=== PATIENT | male | born 1955 | race American Indian/Alaskan Native ===

== ENCOUNTER 2017-04-24 17:41 | Inpatient (IN) | payer MEDICARE ==
[2017-04-24 17:41] VITALS: BMI 23.7
[2017-04-24] MEDS ORDERED: Albuterol-Ipratrop 3 mg / 0.5 (3 ml) UD IH STA (18:14)
[2017-04-24] MEDS ORDERED: Albuterol 0.083% Inhal Sol (2.5 mg/3 mL) UD IH STA (18:14)
[2017-04-24 18:24] LABS: BASO % 0.3 % (0.0-2.0); EOS # 0.1 K/uL (0.0-0.7); EOS % 0.8 % (0.0-4.0); HEMATOCRIT 41.7 % (35.0-51.0); LYMPH # 1.8 K/uL (1.0-4.3); LYMPH % 20.3 % (20.0-40.0); MEAN CORPUSCULAR HEMOGLOBIN 31.5 pg (27.0-31.0); MEAN CORPUSCULAR HGB CONC 33.8 g/dL (33.0-37.0); MEAN PLATELET VOLUME 9.2 fL (7.2-11.7); MONO # 0.6 K/uL (0.0-0.8); MONO % 7.3 % (0.0-10.0); RED CELL DISTRIBUTION WIDTH 14.2 % (11.5-14.5); WHITE BLOOD COUNT 8.6 K/uL (4.8-10.8)
[2017-04-24] MEDS ORDERED: Albuterol-Ipratrop 3 mg / 0.5 (3 ml) UD ONE (18:25)
[2017-04-24 18:26] LABS: MEAN CELL VOLUME 93.3 fL (80.0-94.0)
[2017-04-24] MEDS ORDERED: Albuterol 0.083% Inhal Sol (2.5 mg/3 mL) UD ONE (18:29)
[2017-04-24 18:36] LABS: CHLORIDE 108 mmol/L (98-107); POTASSIUM 4.1 mmol/L (3.6-5.2); SODIUM 140 mmol/L (132-148)
[2017-04-24 18:38] LABS: BILIRUBIN,TOTAL 0.7 mg/dL (0.2-1.3); GFR AFRICAN-AMERICAN > 60
[2017-04-24 18:39] LABS: ALB/GLOB RATIO 1.2 (1.0-2.1); ALKALINE PHOSPHATASE 68 U/L (38-126); ALT/SGPT 26 U/L (21-72); AST/SGOT 32 U/L (17-59); BLOOD UREA NITROGEN 10 mg/dL (9-20); CARBON DIOXIDE 22 mmol/L (22-30); GLUCOSE,RANDOM 105 mg/dL (75-110); TOTAL PROTEIN 6.4 g/dL (6.3-8.3)
[2017-04-24 18:40] LABS: CALCIUM 8.9 mg/dl (8.6-10.4)
--- NOTE | 2017-04-24 19:46 | C.PDOC ---
History Of Present Illness 61 y/o male with Hx of COPD presents to ED with worsening sob, productive cough with white phlegm and unable to lie down since yesterday. 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 Patient has inhaler and albuterol at home that he does not use regularly but used it last night and states he woke up today with symptoms worse which prompted visit to ED. Patient denies fever, chills, chest pain, n/v/d or any other complaints at this time. Time Seen by Provider: 04/24/17 18:09 Chief Complaint (Nursing): Shortness Of Breath History Per: Patient History/Exam Limitations: no limitations Onset/Duration Of Symptoms: Days Current Symptoms Are (Timing): Still Present Initiating Event: Upper Respiratory Illness Past Medical History Reviewed: Historical Data, Nursing Documentation, Vital Signs Vital Signs: Last Vital Signs Temp 97.6 F 04/24/17 17:45 Pulse 87 04/24/17 19:55 Resp 27 H 04/24/17 19:55 BP 139/89 04/24/17 19:55 Pulse Ox 93 L 04/24/17 19:55 - Medical History PMH: Anxiety, CHF, COPD, Pneumonia Family History: States: Unknown Family Hx - Social History Hx Alcohol Use: Yes (renae 1 pint/day) Hx Substance Use: Yes (marijuana daily) - Immunization History Hx Tetanus Toxoid Vaccination: No Hx Influenza Vaccination: No Hx Pneumococcal Vaccination: No Review Of Systems Except As Marked, All Systems Reviewed And Found Negative. Constitutional: Negative for: Fever, Chills Cardiovascular: Negative for: Chest Pain Respiratory: Positive for: Cough, Shortness of Breath Gastrointestinal: Negative for: Nausea, Vomiting, Diarrhea Skin: Negative for: Rash Physical Exam - Physical Exam Appears: Non-toxic, No Acute Distress Skin: Normal Color, Warm, No Rash Head: Atraumatic, Normacephalic Eye(s): bilateral: Normal Inspection Oral Mucosa: Moist Chest: Symmetrical Cardiovascular: Rhythm Regular Respiratory: Rales (Basilar), No Rhonchi, No Wheezing, Other (winded) Gastrointestinal/Abdominal: Soft, No Tenderness, No Guarding, No Rebound Neurological/Psych: Oriented x3, Normal Speech ED Course And Treatment - Laboratory Results Result Diagrams: 04/24/17 18:20 04/24/17 18:20 Lab Interpretation: Abnormal (BNP 8680) ECG: Interpreted By Me ECG Rhythm: Sinus Rhythm (with LVH), ST/T Changes (nonspecific) ECG Interpretation: Abnormal O2 Sat by Pulse Oximetry: 97 (RA) Pulse Ox Interpretation: Normal - Radiology CXR: Interpreted by Me CXR Interpretation: Yes: Cardiomegaly, Other (diffuse interstitial changes, small right pleural effusion) Reevaluation Time: 20:01 Reassessment Condition: Unchanged (Patient continues to be short of breath, worse on exertion with ambulating. Pulse ox decreased to 93%) - Physician Consult Information Time Consulting Physician Contacted: 20:01 Physician Contacted: Octavio Soriano Jr. Outcome Of Conversation: Patient to be admitted to telemetry for CHF with chronic COPD Disposition - Disposition Disposition: HOSPITALIZED Disposition Time: 20:02 Condition: FAIR - POA Present On Arrival: None - Clinical Impression Clinical Impression: COPD (chronic obstructive pulmonary disease), CHF (congestive heart failure) - Scribe Statement The provider has reviewed the documentation as recorded by the Scribanthony Perez All medical record entries made by the Scribe were at my direction and personally dictated by me. I have reviewed the chart and agree that the record accurately reflects my personal performance of the history, physical exam, medical decision making, and the department course for this patient. I have also personally directed, reviewed, and agree with the discharge instructions and disposition.
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
[2017-04-24] MEDS ORDERED: Digoxin 125 mcg (0.125 mg) Tab PO STA (21:26)
[2017-04-24] MEDS ORDERED: Digoxin 125 mcg (0.125 mg) Tab ONE (21:39)
[2017-04-24 22:33] VITALS: RESP 20
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
--- NOTE | 2017-04-25 08:18 | RAD ---
HISTORY: SOB COMPARISON: 11/07/2016 TECHNIQUE: Chest PA and lateral FINDINGS: LUNGS: There is interval development of diffuse pulmonary venous congestion and interstitial pulmonary edema. PLEURA: There are small pleural effusions. No pneumothorax apparent. CARDIOVASCULAR: There is mild cardiomegaly and prominent central vasculature. OSSEOUS STRUCTURES: No significant abnormalities. VISUALIZED UPPER ABDOMEN: Normal. OTHER FINDINGS: None. IMPRESSION: Findings are most compatible with congestive heart failure.
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
--- NOTE | 2017-04-25 16:36 | CP.PCM.PN ---
<Christine Childs - Last Filed: 04/25/17 17:36> Subjective - Date & Time of Evaluation Date of Evaluation: 04/25/17 Time of Evaluation: 07:00 - Subjective Subjective: Medicine Note for Dr. Soriano Patient seen and examined at bedside. Patient reports his breathing has much improved. Denied fever, chills, headaches, chest pain, abdominal pain, n/v/d/c, or urinary symptoms. Objective - Vital Signs/Intake and Output Vital Signs (last 24 hours): Temp Pulse Resp BP Pulse Ox 97.7 F 68 20 117/76 97 04/25/17 16:00 04/25/17 16:00 04/25/17 16:00 04/25/17 16:00 04/25/17 16:00 Intake and Output: 04/25/17 04/25/17 06:59 18:59 Intake Total 240 400 Output Total 1600 Balance -1360 400 - Medications Medications: Current Medications Aspirin (Aspirin Chewable) 81 mg PO DAILY [facility] Last Admin: 04/25/17 09:35 Dose: 81 mg Digoxin (Lanoxin) 0.125 mg PO DAILY@1800 [facility] Enalapril Maleate (Vasotec) 10 mg PO DAILY [facility] Last Admin: 04/25/17 09:35 Dose: 10 mg Famotidine (Pepcid) 20 mg PO DAILY [facility] Last Admin: 04/25/17 09:35 Dose: 20 mg Furosemide (Lasix) 60 mg IVP Q12H [facility] Last Admin: 04/25/17 09:30 Dose: 60 mg Heparin Sodium (Porcine) (Heparin) 5,000 units SC Q8 [facility] Last Admin: 04/25/17 14:34 Dose: 5,000 units Pneumococcal Polyvalent Vaccine (Pneumovax 23 Vaccine) 0.5 ml IM .ONCE ONE Stop: 04/26/17 10:01 Rosuvastatin Calcium (Crestor) 5 mg PO HS [facility] Last Admin: 04/24/17 22:07 Dose: 5 mg Spironolactone (Aldactone) 25 mg PO DAILY [facility] Last Admin: 04/25/17 09:35 Dose: 25 mg - Constitutional Appears: No Acute Distress - Head Exam Head Exam: NORMAL INSPECTION, NORMOCEPHALIC - Eye Exam Eye Exam: EOMI, Normal appearance, PERRL Pupil Exam: NORMAL ACCOMODATION Additional comments: right eye clouded over s/p old trauma - ENT Exam ENT Exam: Mucous Membranes Moist - Respiratory Exam Respiratory Exam: Rales - Cardiovascular Exam Cardiovascular Exam: REGULAR RHYTHM, RRR, +S1, +S2 - GI/Abdominal Exam GI & Abdominal Exam: Soft, Normal Bowel Sounds. absent: Distended, Tenderness - Extremities Exam Extremities Exam: Normal Inspection. absent: Pedal Edema, Tenderness - Neurological Exam Neurological Exam: Alert, Awake, Oriented x3 - Psychiatric Exam Psychiatric exam: Normal Affect, Normal Mood - Skin Skin Exam: Dry, Intact, Normal Color, Warm Assessment and Plan - Assessment and Plan (Free Text) Plan: CHF * BNP 8680, was 3930 on past admission 11/2016 * CXR with bilateral venous congestion- official report pending * patient had MUGA scan in 11/2016 with EF 25%. patient was given life vest but has not been wearing it recently. patient not compliant with lisinopril or lasix * EKG with left atrial enlargement * GLENN x 3 negative * Started patient on lasix 60mg IV BID day 1/2 will adjust dose for 04/27/17, Started on ASA 81 mg PO daily, digoxin 0.125mg PO daily, enalapril 10 mg PO daily, rosuvastatin 5 mg PO hs, and spirinolatone 25 mg PO daily. * Check daily weights, monitor Is & Os, fluid restriction * Dr. Heck consulted, help appreciated * Echo 08/2016 shows EF 56%, dilated left atrium and dilated aortic root. mild mitral regurg, mild to moderate aortic regurg, moderate tricuspid regurg0 * MUGA scan shows EF 25%; given life vest but noncompliant. Appropriate regimen, please continue with these meds. Please avoid beta pili because pt is a cocaine abuser. * F/U ECHO HTN * Start vasotec 10mg PO daily Hx of Cocaine Abuse * Avoid beta pili Prophylactic measure * heparin sc q8h * pepcid 20mg daily DW Naz Ramon DO, PGY-1 <Octavio Soriano Jr. - Last Filed: 04/30/17 10:40> Objective - Vital Signs/Intake and Output Vital Signs (last 24 hours): Temp Pulse Resp BP Pulse Ox 97.6 F 68 20 100/61 100 04/26/17 16:00 04/26/17 16:00 04/26/17 16:00 04/26/17 16:00 04/26/17 16:00 - Labs Labs: 04/26/17 06:57 04/26/17 06:57 Attending/Attestation - Attestation I have personally seen and examined this patient.: Yes I have fully participated in the care of the patient.: Yes I have reviewed all pertinent clinical information, including history, physical exam and plan: Yes Notes (Text): 04/30/17 10:40 Agree with resident note and findings
[2017-04-25] MEDS: Digoxin 125 mcg (0.125 mg) Tab PO SCH (18:11)
[2017-04-25] MEDS ORDERED: Promethazine 12.5 mg/10 ml Syrup PO PRN (18:38)
[2017-04-26 07:11] LABS: BASO % 0.5 % (0.0-2.0); EOS # 0.1 K/uL (0.0-0.7); EOS % 1.1 % (0.0-4.0); HEMATOCRIT 47.4 % (35.0-51.0); LYMPH # 1.8 K/uL (1.0-4.3); LYMPH % 19.2 % (20.0-40.0); MEAN CELL VOLUME 93.3 fL (80.0-94.0); MEAN CORPUSCULAR HEMOGLOBIN 30.7 pg (27.0-31.0); MEAN CORPUSCULAR HGB CONC 32.9 g/dL (33.0-37.0); MEAN PLATELET VOLUME 9.7 fL (7.2-11.7); MONO # 0.8 K/uL (0.0-0.8); MONO % 8.4 % (0.0-10.0); WHITE BLOOD COUNT 9.2 K/uL (4.8-10.8)
[2017-04-26 07:22] LABS: CHLORIDE 100 mmol/L (98-107); POTASSIUM 3.7 mmol/L (3.6-5.2); SODIUM 135 mmol/L (132-148)
[2017-04-26 07:24] LABS: AST/SGOT 25 U/L (17-59); BILIRUBIN,TOTAL 0.7 mg/dL (0.2-1.3); CARBON DIOXIDE 25 mmol/L (22-30); GFR AFRICAN-AMERICAN > 60
[2017-04-26 07:25] LABS: ALB/GLOB RATIO 1.2 (1.0-2.1); ALKALINE PHOSPHATASE 76 U/L (38-126); ALT/SGPT 27 U/L (21-72); BLOOD UREA NITROGEN 17 mg/dL (9-20); CALCIUM 9.2 mg/dl (8.6-10.4); GLUCOSE,RANDOM 95 mg/dL (75-110); PHOSPHOROUS 4.4 mg/dL (2.5-4.5); TOTAL PROTEIN 6.9 g/dL (6.3-8.3)
[2017-04-26 07:26] LABS: MAGNESIUM 1.7 mg/dL (1.6-2.3)
--- NOTE | 2017-04-26 08:11 | CP.PCM.PN ---
Subjective - Date & Time of Evaluation Date of Evaluation: 04/26/17 Time of Evaluation: 08:09 - Subjective Subjective: La Deng, PGY1, Progress Note for Dr. Heck: Pt seen and examined at bedside. No acute events overnight. Pt reports improvement in sob. Denies cp, diaphoresis, n/v/d, f/c, palpitations, abdominal pain. Objective - Vital Signs/Intake and Output Vital Signs (last 24 hours): Temp Pulse Resp BP Pulse Ox 98.3 F 73 20 121/79 97 04/25/17 23:40 04/26/17 00:15 04/25/17 23:40 04/25/17 23:40 04/25/17 23:40 Intake and Output: 04/26/17 04/26/17 06:59 18:59 Intake Total 500 Balance 500 - Medications Medications: Current Medications Aspirin (Aspirin Chewable) 81 mg PO DAILY [facility] Last Admin: 04/25/17 09:35 Dose: 81 mg Digoxin (Lanoxin) 0.125 mg PO DAILY@1800 [facility] Last Admin: 04/25/17 18:11 Dose: 0.125 mg Enalapril Maleate (Vasotec) 10 mg PO DAILY [facility] Last Admin: 04/25/17 09:35 Dose: 10 mg Famotidine (Pepcid) 20 mg PO DAILY [facility] Last Admin: 04/25/17 09:35 Dose: 20 mg Furosemide (Lasix) 60 mg IVP Q12H [facility] Last Admin: 04/25/17 20:35 Dose: 60 mg Heparin Sodium (Porcine) (Heparin) 5,000 units SC Q8 [facility] Last Admin: 04/26/17 06:18 Dose: 5,000 units Pneumococcal Polyvalent Vaccine (Pneumovax 23 Vaccine) 0.5 ml IM .ONCE ONE Stop: 04/26/17 10:01 Promethazine HCl (Phenergan Syrup) 12.5 mg PO Q6 PRN PRN Reason: Cough Last Admin: 04/25/17 19:00 Dose: 12.5 mg Rosuvastatin Calcium (Crestor) 5 mg PO HS [facility] Last Admin: 04/25/17 22:14 Dose: 5 mg Spironolactone (Aldactone) 25 mg PO DAILY [facility] Last Admin: 04/25/17 09:35 Dose: 25 mg - Labs Labs: 04/26/17 06:57 08/18/17 06:57 - Constitutional Appears: No Acute Distress - Head Exam Head Exam: ATRAUMATIC, NORMOCEPHALIC - Eye Exam Eye Exam: PERRL - Respiratory Exam Respiratory Exam: Clear to Ausculation Bilateral - Cardiovascular Exam Cardiovascular Exam: REGULAR RHYTHM, +S1, +S2 - GI/Abdominal Exam GI & Abdominal Exam: Soft, Normal Bowel Sounds. absent: Tenderness - Extremities Exam Extremities Exam: absent: Calf Tenderness, Pedal Edema - Neurological Exam Neurological Exam: Alert, Awake, Oriented x3 - Psychiatric Exam Psychiatric exam: Normal Mood - Skin Skin Exam: Dry, Warm Assessment and Plan - Assessment and Plan (Free Text) Assessment: 61M with CHF, COPD, HTN, OA, admitted for dyspnea 2/2 likely acute on chronic CHF exacerbation 2/2 likely noncompliance with his medications. Cardiology consulted for management of CHF. Plan: Dyspnea 2/2 likely acute on chronic CHF exacerbation vs copd exacerbation (less likely): - Pt noncompliant with his home heart failure meds. - BNP 8680, trops negx2, denies cp, diaphoresis, n/v/d, abdominal pain - CXR 04/24 shows b/l venous congestion - EKG 04/24 shows HR 94, NSR, LVh and L atrial enlargement, QTC mildly prolonged 475 ms - Echo 08/2016 shows EF 56%, dilated left atrium and dilated aortic root. mild mitral regurg, mild to moderate aortic regurg, moderate tricuspid regurg0 - MUGA scan shows EF 25%; given life vest but noncompliant - In ED, received digoxin 0.125 mg POx1 and lasix 60 mg IVPx1 - Started on ASA 81 mg PO daily, digoxin 0.125mg PO daily, enalapril 10 mg PO daily, lasix 60 mg IVP q12h x 2 days, rosuvastatin 5 mg PO hs, and spirinolatone 25 mg PO daily. Appropriate regimen, please continue with these meds. Please avoid beta pili because pt is a cocaine abuser. - C/w duonebs prn. - Echocardiogram done yesterday, results pending. Discussed with Dr. Heck. La Deng, PGY1
[2017-04-26] MEDS ORDERED: Pneumococcal 23-Valent Vaccine IM ONE (10:00)
[2017-04-26 17:18] VITALS: BP 100/61; PULSE 68; TEMP 97.6; O2SAT 100
[2017-04-26] MEDS: Digoxin 125 mcg (0.125 mg) Tab PO SCH (18:22)
[2017-04-26 18:23] VITALS: PULSE 68
--- NOTE | 2017-04-26 18:38 | CP.PCM.DIS ---
Provider - Provider Date of Admission: 04/25/17 16:35 Attending physician: Octavio Soriano Jr, MD Time Spent in preparation of Discharge (in minutes): 32 Diagnosis - Discharge Diagnosis (1) Acute on chronic systolic (congestive) heart failure Status: Acute (2) HTN (hypertension) Status: Chronic (3) Prophylactic measure Status: Acute (4) Cocaine abuse Status: Acute Comment: For this reason, we avoided using beta blockers Hospital Course - Lab Results Lab Results: Most Recent Lab Values WBC 9.2 K/uL (4.8-10.8) 04/26/17 06:57 RBC 5.07 Mil/uL (4.40-5.90) 04/26/17 06:57 Hgb 15.6 g/dL (12.0-18.0) 04/26/17 06:57 Hct 47.4 % (35.0-51.0) 04/26/17 06:57 MCV 93.3 fL (80.0-94.0) 04/26/17 06:57 MCH 30.7 pg (27.0-31.0) 04/26/17 06:57 MCHC 32.9 g/dL (33.0-37.0) L 04/26/17 06:57 RDW 14.0 % (11.5-14.5) 04/26/17 06:57 Plt Count 244 K/uL (130-400) 04/26/17 06:57 MPV 9.7 fL (7.2-11.7) 04/26/17 06:57 Neut % (Auto) 70.8 % (50.0-75.0) 04/26/17 06:57 Lymph % (Auto) 19.2 % (20.0-40.0) L 04/26/17 06:57 [place] % (Auto) 8.4 % (0.0-10.0) 04/26/17 06:57 Eos % (Auto) 1.1 % (0.0-4.0) 04/26/17 06:57 Baso % (Auto) 0.5 % (0.0-2.0) 04/26/17 06:57 Neut # 6.5 K/uL (1.8-7.0) 04/26/17 06:57 Lymph # 1.8 K/uL (1.0-4.3) 04/26/17 06:57 [place] # 0.8 K/uL (0.0-0.8) 04/26/17 06:57 Eos # 0.1 K/uL (0.0-0.7) 04/26/17 06:57 Baso # 0.0 K/uL (0.0-0.2) 04/26/17 06:57 Sodium 135 mmol/L (132-148) 04/26/17 06:57 Potassium 3.7 mmol/L (3.6-5.2) 04/26/17 06:57 Chloride 100 mmol/L (98-107) 04/26/17 06:57 Carbon Dioxide 25 mmol/L (22-30) 04/26/17 06:57 Anion Gap 14 (10-20) 04/26/17 06:57 BUN 17 mg/dL (9-20) 04/26/17 06:57 Creatinine 1.2 MG/DL (0.8-1.5) 04/26/17 06:57 Est GFR ( Amer) > 60 04/26/17 06:57 Est GFR (Non-Af Amer) > 60 04/26/17 06:57 Random Glucose 95 mg/dL (75-110) 04/26/17 06:57 Calcium 9.2 mg/dl (8.6-10.4) 04/26/17 06:57 Phosphorus 4.4 mg/dL (2.5-4.5) 04/26/17 06:57 Magnesium 1.7 mg/dL (1.6-2.3) 04/26/17 06:57 Total Bilirubin 0.7 mg/dL (0.2-1.3) 04/26/17 06:57 AST 25 U/L (17-59) 04/26/17 06:57 ALT 27 U/L (21-72) 04/26/17 06:57 Alkaline Phosphatase 76 U/L (38-126) 04/26/17 06:57 Total Creatine Kinase 109 U/L (55-170) 04/25/17 08:03 CK-MB (Mass) 1.14 ng/mL (0.0-3.38) 04/25/17 08:03 Troponin I 0.0590 ng/mL (0.00-0.120) 04/24/17 18:20 Troponin I, Quant 0.0620 ng/mL (0.00-0.120) 04/25/17 08:03 NT-Pro-B Natriuret Pep 8680 pg/mL (0-900) H 04/24/17 18:20 Total Protein 6.9 g/dL (6.3-8.3) 04/26/17 06:57 Albumin 3.7 g/dL (3.5-5.0) 04/26/17 06:57 Globulin 3.1 gm/dL (2.2-3.9) 04/26/17 06:57 Albumin/Globulin Ratio 1.2 (1.0-2.1) 04/26/17 06:57 - Hospital Course Hospital Course: On admission: "Patient is a 61 year old male with PMHx HTN, osteoarthritis, heart failure, who presents with complaint of shortness of breath. Patient states the dyspnea has been going on for the past two- three days. Patient states that two nights ago he woke up from sleep feeling like he couldn't catch his breath. Patient states he normally sleeps on two pillows but for the past two nights he has needed four pillows. Patient states that he is having his bathroom renovated at home and there has been a lot of dust in the air for the past week and he initially attributed his dyspnea to that. Patient states he normally rides his bike and walks 3-4 blocks before needing a rest but for the past week can only walk one block. Patient was last admitted here in November for similar complaint. At that time, patient had a MUGA scan that showed EF of 25% and was transferred to [facility] for AICD placement. Patient did not receive AICD but instead received a life vest. Patient states he wore the vest for a couple of months but has not used it for the past 2-3 months. Patient also states he stopped taking lisinopril because he had ankle swelling and attributed it to the lisinopril. Patient states he uses albuterol and advair from [id number] but recently used advair 3 times daily and albuterol every 3 hours without much relief." Hospital Course: Patient admitted for acute on chronic systolic congestive heart failure. BNP was 8680 on this admission, as compared to 3930 on past admission 11/2016. Dr. Heck (cardiology) consulted. CXR showed bilateral venous congestion. EKG showed NSR with evidence of LVH and Left atrial enlargement, QTc prolonged 475 ms. Troponins unremarkable. Patient was started on lasix 60 mg IV BID, ASA 81 mg PO daily, Enalapril 20 mg PO daily, Rosuvastatin 5 mg PO HS, aldactone 25 mg PO daily, and Digoxin 0.125 mg PO daily. Beta jocelyn was avoided due to the patient's history of cocaine abuse. Echo was done and preliminary reading by Dr. Soriano showed an EF of 35% with moderate aortic insufficiency indicating that this is likely attributable to Hypertensive Heart Disease. Patient was instructed to follow up with primary care physician and wireworker supervisor for management of his chronic medical problems. This is a summary of the hospital course. Please refer to the medical records for more information. - Date & Time of H&P Date of H&P: 04/26/17 Time of H&P: 19:00 Discharge Exam - Head Exam Head Exam: ATRAUMATIC, NORMAL INSPECTION, NORMOCEPHALIC - Eye Exam Eye Exam: EOMI, PERRL Additional comments: right eye clouded over s/p old trauma - ENT Exam ENT Exam: Mucous Membranes Moist - Respiratory Exam Respiratory Exam: Clear to PA & Lateral, NORMAL BREATHING PATTERN. absent: Rales, Rhonchi, Wheezes - Cardiovascular Exam Cardiovascular Exam: REGULAR RHYTHM, +S1, +S2 - GI/Abdominal Exam GI & Abdominal Exam: Normal Bowel Sounds, Soft. absent: Tenderness - Extremities Exam Extremities exam: pedal pulses present - Neurological Exam Neurological exam: Alert, Oriented x3 - Psychiatric Exam Psychiatric exam: Normal Affect, Normal Mood - Skin Skin Exam: Dry, Intact, Normal Color, Warm Discharge Plan - Discharge Medications Prescriptions: Digoxin [Lanoxin] 0.125 mg PO DAILY@1800 #30 tab Enalapril Maleate [Vasotec] 20 mg PO DAILY #30 tab Furosemide [Lasix] 40 mg PO BID #60 tab Potassium Chloride [K-Dur 20] 20 meq PO DAILY #30 tab Rosuvastatin Calcium [Crestor] 5 mg PO HS #30 tab Spironolactone [Aldactone] 25 mg PO DAILY #30 tab - Follow Up Plan Condition: STABLE Disposition: HOME/ ROUTINE Instructions: Spironolactone (By mouth), Enalapril (By mouth), Digoxin (By mouth), Furosemide (By mouth), Potassium Chloride (By mouth), Rosuvastatin (By mouth), Heart Failure (DC), Heart Healthy Diet (DC), COPD (Chronic Obstructive Pulmonary Disease) (DC) Additional Instructions: 1) Continue your home medications except for the Lisinopril which was replaced. 2) Take Enalapril 20 mg by mouth once a day. 3) Take Digoxin 0.125 mg by mouth once a day. 4) Take Furosemide (the water pill) 40 mg by mouth twice a day. It is a good idea to take one in the morning and one at noon in order to prevent night-time interruptions from sleep. 5) Take Spironolactone 25 mg by mouth once a day. 6) Take Potassium Chloride 20 mEq tab once a day. 7) Take Rosuvastatin 5 mg by mouth once a day at bedtime. 8) Follow up with your primary care physician Dr. Velázquez in his office within 7- 10 days of discharge. Please continue taking your medications. Failure to take them could result in disastrous consequences that could be life-threatening. You will also need to follow up with a wireworker supervisor in 7-10 days to manage your congestive heart failure. 9) If there are any emergency symptoms such as chest pain or shortness of breath , please return to the emergency room. Referrals: Mia Heck MD [Staff Provider] - Jose Velázquez MD [Staff Provider] - Octavio Soriano Jr., MD [Medical Doctor] - Clinical Quality Measures - CQM - Heart Failure Ejection Fraction: Less Than 40 % THOMAS Inhibitor Prescribed: Yes Beta-Jocelyn Prescribed: None Contraindication/Reason for not providing: History of Cocaine Abuse Angiotensin II Receptor Jocelyn Prescribed: No Contraindication/Reason for not providing: Given THOMAS inhibitor AnticoagulationTherapy for Atrial Fibrillation/Atrialflutter: No Contraindication/Reason for not providing: no history of Afib Aldosterone Antagonist Prescribed: Yes Hydralazine Nitrate Prescribed: No Contraindication/Reason for not providing: unnecessary Implantable Cardioverter Defibrillator Therapy: No Contraindication/Reason for not providing: patient had life vest instead Cardiac Resynchronization Therapy Prescribed: No Contraindication/Reason for not providing: unnecessary
--- NOTE | 2017-04-27 18:07 | CARD ---
APPROVED REPORT EKG Measurement Heart [id number] <Conclusion> Poor data quality, interpretation may be adversely affected Normal sinus rhythm Possible Left atrial enlargement Left ventricular hypertrophy Nonspecific T wave abnormality Prolonged QT Abnormal ECG
--- NOTE | 2017-04-27 20:30 | CARD ---
APPROVED REPORT EXAM: Two-dimensional and M-mode echocardiogram with Doppler and color Doppler. Other Information Quality : GoodRhythm : PVC's INDICATION Pericardial Effusion Congestive Heart Failure COPD RISK FACTORS Hypertension 2D DIMENSIONS IVSd1.3 (0.7-1.1cm)LVDd5.8 (3.9-5.9cm) PWd1.4 (0.7-1.1cm)LVDs5.0 (2.5-4.0cm) FS (%) 14.4 %LVEF (%)30.1 (>50%) M-Mode DIMENSIONS Left Atrium (MM)3.99 (2.5-4.0cm)IVSd0.88 (0.7-1.1cm) Aortic Root4.96 (2.2-3.7cm)LVDd6.63 (4.0-5.6cm) Aortic Cusp Exc.1.77 (1.5-2.0cm)PWd1.11 (0.7-1.1cm) FS (%) 21 %LVDs5.26 (2.0-3.8cm) LVEF (%)41 (>50%) Aortic Valve AI P 1/2 [id number] Mitral Valve MV E Btpjrroe84.0cm/sMV A Sykrgzwp58.4cm/sE/A ratio1.3 TDI E/Lateral E'0.0E/Medial E'0.0 Tricuspid Valve TR Peak [id number]/sTR Peak Gr.[id number] LEFT VENTRICLE The Left Ventricle is mildly dilated. There is mild concentric left ventricular hypertrophy. ef is 30-35% severe hypokinesis of the anterior, septal, and inferior flores. Transmitral Doppler flow pattern is Grade II-pseudonormal filling dynamics. No left ventricle thrombus noted on this study. There is no ventricular septal defect visualized. There is no left ventricular aneurysm. RIGHT VENTRICLE The right ventricle is normal size. There is normal right ventricular wall thickness. The right ventricular systolic function is normal. ATRIA The left atrium is moderately dilated. The right atrium size is normal. The interatrial septum is intact with no evidence for an atrial septal defect. AORTIC VALVE The aortic valve is normal in structure. There is mild aortic regurgitation. There is no aortic valvular stenosis. There is no aortic valvular vegetation. MITRAL VALVE The mitral valve is thickened but opens well. There is no evidence of mitral valve prolapse. There is no mitral valve stenosis. Mitral regurgitation is mild. TRICUSPID VALVE The tricuspid valve is normal in structure. There is mild tricuspid regurgitation. There is no tricuspid valve prolapse or vegetation. There is no tricuspid valve stenosis. PULMONIC VALVE The pulmonary valve is normal in structure. There is no pulmonic valvular regurgitation. There is no pulmonic valvular stenosis. GREAT VESSELS The aortic root is mildly enlarged. The ascending aorta is Mildly dilated. The IVC is normal in size and collapses >50% with inspiration. PERICARDIAL EFFUSION There is no pericardial effusion. There is no pleural effusion. <Conclusion> The Left Ventricle is mildly dilated. ef is 30-35% There is mild concentric left ventricular hypertrophy. severe hypokinesis of the anterior, septal, and inferior flores. Transmitral Doppler flow pattern is Grade II-pseudonormal filling dynamics. The left atrium is moderately dilated. There is mild aortic regurgitation. Mitral regurgitation is mild. There is mild tricuspid regurgitation. The aortic root is mildly enlarged. The ascending aorta is Mildly dilated.
== END 2017-04-26 18:59 | disposition home or self-care (01) | DRG 293 ==
LOC: C.ER 17:41 → C.9E 20:02 → C.6T 21:23 → OBSVTOIN 04-25 16:35
PROVIDERS: ADMIT Internal Medicine; ATTEND Internal Medicine
DX: I11.0 Hypertensive heart disease with heart failure (principal); I50.23 Acute on chronic systolic (congestive) heart failure; F14.10 Cocaine abuse, uncomplicated; J44.9 Chronic obstructive pulmonary disease, unspecified; F41.9 Anxiety disorder, unspecified; M19.90 Unspecified osteoarthritis, unspecified site; F17.210 Nicotine dependence, cigarettes, uncomplicated; H54.41 Blindness, right eye, normal vision left eye; I35.1 Nonrheumatic aortic (valve) insufficiency; Z79.82 Long term (current) use of aspirin; Z79.899 Other long term (current) drug therapy; Z82.3 Family history of stroke; Z87.01 Personal history of pneumonia (recurrent); Z83.3 Family history of diabetes mellitus; Z91.14 Patient's other noncompliance with medication regimen

== ENCOUNTER 2017-08-11 15:50 | Inpatient (IN) | payer MEDICARE ==
[2017-08-11 15:50] VITALS: PULSE 68; BMI 23.7
[2017-08-11] MEDS ORDERED: Albuterol-Ipratrop 3 mg / 0.5 (3 ml) UD INH STA (16:31)
[2017-08-11 16:42] LABS: BASO % 0.5 % (0.0-2.0); EOS % 0.5 % (0.0-4.0); HEMATOCRIT 41.7 % (35.0-51.0); LYMPH # 1.9 K/uL (1.0-4.3); LYMPH % 19.6 % (20.0-40.0); MEAN CELL VOLUME 94.1 fL (80.0-94.0); MEAN CORPUSCULAR HEMOGLOBIN 31.2 pg (27.0-31.0); MEAN CORPUSCULAR HGB CONC 33.1 g/dL (33.0-37.0); MEAN PLATELET VOLUME 8.8 fL (7.2-11.7); MONO # 0.8 K/uL (0.0-0.8); MONO % 8.2 % (0.0-10.0); RED CELL DISTRIBUTION WIDTH 18.9 % (11.5-14.5); WHITE BLOOD COUNT 9.5 K/uL (4.8-10.8)
--- NOTE | 2017-08-11 16:43 | C.PDOC ---
History Of Present Illness 62-year-old male, presents to the emergency department with complaints of shortness of breath that is associated with a productive cough with yellow phlegm. Patient notes no improvement with home meds. Has never been intubated in past. Denies fevers, chills, nausea/vomiting, or any other associated symptoms. No other complaints at this time. Time Seen by Provider: 08/11/17 15:59 Chief Complaint (Nursing): Shortness Of Breath History Per: Patient History/Exam Limitations: no limitations Onset/Duration Of Symptoms: Days Past Medical History Reviewed: Historical Data, Nursing Documentation, Vital Signs Vital Signs: Last Vital Signs Temp 97.1 F L 08/11/17 16:03 Pulse 87 08/11/17 17:29 Resp 13 08/11/17 17:29 BP 147/93 H 08/11/17 17:29 Pulse Ox 97 08/11/17 17:29 - Medical History PMH: Anxiety, CHF, COPD, Pneumonia Family History: States: No Known Family Hx - Social History Hx Alcohol Use: Yes (TABATHA 1 PINT A DAY) Hx Substance Use: Yes (marijuana daily) - Immunization History Hx Tetanus Toxoid Vaccination: No Hx Influenza Vaccination: No Hx Pneumococcal Vaccination: No Review Of Systems Except As Marked, All Systems Reviewed And Found Negative. Constitutional: Negative for: Chills Cardiovascular: Negative for: Chest Pain, Palpitations Respiratory: Positive for: Cough, Shortness of Breath, Sputum Gastrointestinal: Negative for: Nausea, Vomiting, Abdominal Pain Musculoskeletal: Negative for: Back Pain Neurological: Negative for: Weakness, Numbness, Headache, Dizziness Physical Exam - Physical Exam Appears: Non-toxic, No Acute Distress Skin: Warm, Dry, No Rash Head: Atraumatic, Normacephalic Nose: Normal Oral Mucosa: Moist Lips: Normal Appearing Neck: Normal ROM Chest: Symmetrical Cardiovascular: Rhythm Regular, No Murmur Respiratory: No Accessory Muscle Use, Rales (bibasilar) Gastrointestinal/Abdominal: Soft, No Tenderness Extremity: Normal ROM Neurological/Psych: Oriented x3, Normal Speech ED Course And Treatment - Laboratory Results Result Diagrams: 08/11/17 16:39 08/11/17 16:39 ECG: Interpreted By Me, Viewed By Me ECG Rhythm: Sinus Rhythm, Nonspecific Changes (T wave) ECG Interpretation: Normal Interpretation Of ECG: EKG NSR 80 BPM with LVH, normal intervals, left axis deviation and non specific T wave changes. Rate From EC O2 Sat by Pulse Oximetry: 100 (On RA) Pulse Ox Interpretation: Normal Medical Decision Making Medical Decision Making: Plan * Labs * EKG * Duoneb * Reassess and Disposition Pt will be admitted to telemetry under Dr. Bartolo Roca. Disposition Discussed With Dr.: Yo Roca Doctor Will See Patient In The: Hospital Counseled Patient/Family Regarding: Diagnosis - Disposition Disposition: HOSPITALIZED Disposition Time: 17:18 Condition: FAIR - Clinical Impression Clinical Impression: Chronic congestive heart failure - Scribe Statement The provider has reviewed the documentation as recorded by the Scribe (Saray Chapman) All medical record entries made by the Scribe were at my direction and personally dictated by me. I have reviewed the chart and agree that the record accurately reflects my personal performance of the history, physical exam, medical decision making, and the department course for this patient. I have also personally directed, reviewed, and agree with the discharge instructions and disposition.
[2017-08-11 16:57] LABS: ALB/GLOB RATIO 1.1 (1.0-2.1); ALKALINE PHOSPHATASE 80 U/L (38-126); ALT/SGPT 68 U/L (21-72); AST/SGOT 61 U/L (17-59); BILIRUBIN,TOTAL 0.6 mg/dL (0.2-1.3); BLOOD UREA NITROGEN 18 mg/dL (9-20); CALCIUM 8.6 mg/dl (8.6-10.4); CARBON DIOXIDE 26 mmol/L (22-30); CHLORIDE 109 mmol/L (98-107); GFR AFRICAN-AMERICAN > 60; GLUCOSE,RANDOM 124 mg/dL (75-110); POTASSIUM 4.2 mmol/L (3.6-5.2); SODIUM 141 mmol/L (132-148); TOTAL PROTEIN 7.3 g/dL (6.3-8.3)
--- NOTE | 2017-08-11 17:12 | RAD ---
PROCEDURE: CHEST RADIOGRAPH, 1 VIEW HISTORY: SOB COMPARISON: Chest radiographs 04/24/2017. FINDINGS: LUNGS: Chronic interstitial pulmonary changes are again appreciated with limited patchy density questioned developing in the medial right base. Remaining lung avina are otherwise stable. PLEURA: No pneumothorax or pleural fluid seen. CARDIOVASCULAR: Borderline cardiomegaly again evident. No definite pulmonary vascular derangement. OSSEOUS STRUCTURES: No significant abnormalities. VISUALIZED UPPER ABDOMEN: Normal. OTHER FINDINGS: None. IMPRESSION: Borderline developing infiltrate medial right base with remaining lung avina clear otherwise. Chronic interstitial pulmonary changes are unchanged.
[2017-08-11] MEDS ORDERED: Azithromycin 500 MG in Sodium Chloride 0.9% 250 ML IVPB STA (17:16)
[2017-08-11] MEDS ORDERED: Albuterol HFA 90 mcg/actuation (8 g) INH PRN (22:01)
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
[2017-08-12] MEDS: guaiFENesin DM 200 mg-20 mg/10 ml UD PO PRN ×2 (01:06→22:05)
[2017-08-12] MEDS: Albuterol-Ipratrop 3 mg / 0.5 (3 ml) UD INH SCH ×4 (01:26→20:30)
[2017-08-12] MEDS: MethylPREDNISolone 40 mg Vial IVP SCH ×3 (06:05→21:53)
[2017-08-12] MEDS: Fluticasone-Salmeterol 250-50mcg Diskus INH SCH ×2 (08:09→20:45)
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
[2017-08-12] MEDS: Pantoprazole 40 mg EC Tab PO SCH (09:57)
[2017-08-12] MEDS: Enoxaparin 40 mg Syringe SC SCH (09:58)
[2017-08-12] MEDS ORDERED: Azithromycin 500 MG in Sodium Chloride 0.9% 250 ML IVPB SCH (10:00)
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
--- NOTE | 2017-08-12 23:14 | CARD ---
APPROVED REPORT EKG Measurement Heart [id number] <Conclusion> Normal sinus rhythm Possible Left atrial enlargement Left ventricular hypertrophy Nonspecific T wave abnormality Prolonged QT Abnormal ECG
[2017-08-13] MEDS: Albuterol-Ipratrop 3 mg / 0.5 (3 ml) UD INH SCH ×4 (01:48→21:51)
[2017-08-13] MEDS: MethylPREDNISolone 40 mg Vial IVP SCH ×3 (05:26→21:34)
[2017-08-13 07:59] VITALS: RESP 20
[2017-08-13] MEDS: Fluticasone-Salmeterol 250-50mcg Diskus INH SCH (08:08)
[2017-08-13 08:35] LABS: BASO % 0.1 % (0.0-2.0); HEMATOCRIT 42.1 % (35.0-51.0); LYMPH # 0.6 K/uL (1.0-4.3); LYMPH % 4.4 % (20.0-40.0); MEAN CELL VOLUME 95.9 fL (80.0-94.0); MEAN CORPUSCULAR HEMOGLOBIN 31.1 pg (27.0-31.0); MEAN CORPUSCULAR HGB CONC 32.4 g/dL (33.0-37.0); MEAN PLATELET VOLUME 9.8 fL (7.2-11.7); MONO # 0.6 K/uL (0.0-0.8); MONO % 4.6 % (0.0-10.0); PLATELET COUNT 230 K/uL (130-400); RED CELL DISTRIBUTION WIDTH 18.5 % (11.5-14.5); WHITE BLOOD COUNT 13.7 K/uL (4.8-10.8)
[2017-08-13 08:42] LABS: ALB/GLOB RATIO 1.5 (1.0-2.1); ALKALINE PHOSPHATASE 65 U/L (38-126); ALT/SGPT 50 U/L (21-72); AST/SGOT 27 U/L (17-59); BILIRUBIN,TOTAL 0.5 mg/dL (0.2-1.3); BLOOD UREA NITROGEN 25 mg/dL (9-20); CALCIUM 8.4 mg/dl (8.6-10.4); CARBON DIOXIDE 25 mmol/L (22-30); CHLORIDE 105 mmol/L (98-107); GFR AFRICAN-AMERICAN > 60; GLUCOSE,RANDOM 126 mg/dL (75-110); MAGNESIUM 1.7 mg/dL (1.6-2.3); POTASSIUM 4.6 mmol/L (3.6-5.2); SODIUM 139 mmol/L (132-148)
[2017-08-13] MEDS: Pantoprazole 40 mg EC Tab PO SCH (09:21)
[2017-08-13] MEDS: guaiFENesin DM 200 mg-20 mg/10 ml UD PO PRN ×2 (09:21→21:34)
[2017-08-13] MEDS: Enoxaparin 40 mg Syringe SC SCH (09:22)
[2017-08-13 09:54] LABS: LEGIONELLA AG URINE NEGATIVE (NEGATIVE)
[2017-08-13] MEDS ORDERED: Moxifloxacin IV 400mg/250ml NS 400 MG/250 ML BAG IVPB SCH (10:00)
--- NOTE | 2017-08-13 10:19 | CP.PCM.PN ---
Subjective - Date & Time of Evaluation Date of Evaluation: 08/13/17 Time of Evaluation: 09:10 - Subjective Subjective: Medicine Note- Dr. Roca's service Patient was seen and examined at bedside. Patient reports that his breathing is still abnormal, but it is improving. Patients that otherwise, he is comfortable and has no complaints. Patient understands that he has a weak heart and is being re-evaluated for possible AICD placement. Nursing reports no events overnight. Objective - Vital Signs/Intake and Output Vital Signs (last 24 hours): Temp Pulse Resp BP Pulse Ox 98.0 F 80 20 142/98 H 96 08/13/17 07:58 08/13/17 07:58 08/13/17 07:58 08/13/17 09:22 08/13/17 07:58 - Medications Medications: Current Medications Albuterol (Ventolin Hfa 90 Mcg/Actuation (8 G)) 2 puff INH RQ4 PRN PRN Reason: Shortness of Breath Albuterol/Ipratropium (Duoneb 3 Mg/0.5 Mg (3 Ml) Ud) 3 ml INH RQ6 [facility] Last Admin: 08/13/17 08:06 Dose: 3 ml Alprazolam (Xanax) 2 mg PO DAILY PRN PRN Reason: Anxiety Amlodipine Besylate (Norvasc) 5 mg PO DAILY [facility] Aspirin (Ecotrin) 81 mg PO DAILY [facility] Last Admin: 08/13/17 09:22 Dose: 81 mg Enalapril Maleate (Vasotec) 20 mg PO DAILY [facility] Last Admin: 08/13/17 09:21 Dose: 20 mg Enoxaparin Sodium (Lovenox) 40 mg SC DAILY [facility] Last Admin: 08/13/17 09:22 Dose: 40 mg Furosemide (Lasix) 40 mg IVP BID [facility] Guaifenesin/Dextromethorphan (Robitussin Dm) 10 ml PO TID PRN PRN Reason: Cough and congestion Last Admin: 08/13/17 09:21 Dose: 10 ml Azithromycin 500 mg/ Sodium (Chloride) 250 mls @ 250 mls/hr IVPB DAILY [facility] Last Admin: 08/12/17 10:01 Dose: 250 mls/hr Ceftriaxone Sodium 1 gm/ (Sodium Chloride) 100 mls @ 100 mls/hr IVPB DAILY [facility] Last Admin: 08/13/17 09:51 Dose: 100 mls/hr Methylprednisolone (Solu-Medrol) 40 mg IVP Q8 [facility] Last Admin: 08/13/17 05:26 Dose: 40 mg Montelukast Sodium (Singulair) 10 mg PO HS [facility] Last Admin: 08/12/17 21:53 Dose: 10 mg Nicotine (Nicoderm Cq) 1 patch TD DAILY [facility] Pantoprazole Sodium (Protonix Ec Tab) 40 mg PO DAILY [facility] Last Admin: 08/13/17 09:21 Dose: 40 mg Rosuvastatin Calcium (Crestor) 5 mg PO HS [facility] Last Admin: 08/12/17 21:53 Dose: 5 mg Fluticasone/Salmeterol (Advair Diskus 250/50) 1 puff INH RQ12 [facility] Last Admin: 08/13/17 08:08 Dose: Not Given Spironolactone (Aldactone) 25 mg PO DAILY [facility] Last Admin: 08/13/17 09:21 Dose: 25 mg - Labs Labs: 08/13/17 08:09 08/13/17 08:09 PT 10.8 SECONDS (9.7-12.2) 08/11/17 16:39 INR 1.0 08/11/17 16:39 APTT 29 SECONDS (21-34) 08/11/17 16:39 - Constitutional Appears: Non-toxic, No Acute Distress - Head Exam Head Exam: ATRAUMATIC, NORMAL INSPECTION, NORMOCEPHALIC - ENT Exam ENT Exam: Mucous Membranes Moist - Respiratory Exam Respiratory Exam: Rales, NORMAL BREATHING PATTERN. absent: Rhonchi, Wheezes - Cardiovascular Exam Cardiovascular Exam: REGULAR RHYTHM, Murmur - GI/Abdominal Exam GI & Abdominal Exam: Soft, Normal Bowel Sounds - Extremities Exam Extremities Exam: Normal Capillary Refill, Normal Inspection - Neurological Exam Neurological Exam: Alert, Awake, Oriented x3 - Psychiatric Exam Psychiatric exam: Normal Affect, Normal Mood - Skin Skin Exam: Normal Color, Warm Assessment and Plan - Assessment and Plan (Free Text) Assessment: CHF exacerbation, systolic dysfunction Admit to [facility] Hx of multiple admission to [facility] for similar etiology Check daily weights, monitor Is & Os, fluid restriction BNP 9670, was [id number] on previous admissions CXR (08/11/17): borderline developing infiltrate at medial right base w remaining lung avina clear. Chronic interstitial pulmonary changes noted. EKG (08/11/17): left atrial enlargement, prolonged QT, no acute ST/T wave changes - patient had MUGA scan in 11/2016 with EF 25%. patient was given life vest but has not been wearing it recently. patient not compliant with lisinopril or lasix GLENN negative x1 Lasix 40mg IV Daily ASA 81 mg PO daily Enalapril 20 mg PO daily Rosuvastatin 5 mg PO hs Spirinolatone [address] Hanna consulted, help appreciated - MUGA scan shows EF 25%; given life vest but noncompliant. Avoid BB as pt with hx of cocaine use - f/u repeat ECHO, for AICD placement Pneumonia, Community Acquired CXR (08/11/17): borderline developing infiltrate at medial right base w remaining lung avina clear. Chronic interstitial pulmonary changes noted. Azithromycin 500mg IV Daily DISCONTINUED DUE TO PTc Prolongation Ceftriaxone 1gm IV Daily Robitussin DM 10ml PO TID for cough Legionella negative f/u influenza and mycoplasma pending Dr. Wills, pulmonolgy bilingual sales consultant, help appreciated History of COPD, possible exacerbating factor of SOB Patient smokes 1/4 to 1/2 PPD x 30-40 years Solumedrol 40 mg IV q8h Singulair 10mg PO HS Duoneb Q6H KRISTY Prolonged QT interval EKG (08/11/17): NSR, left atrial enlargement, QTc 484 - f/u repeat EKG - Hold Azithromycin until QTc improves - consider Cardio evaluation if QTc remains prolonged HTN Elevated since admission - Enalapril 20mg PO Daily - Continue Norvasc 5mg PO Daily History of substance abuse disorder - Avoid beta pili due to hx of cocaine abuse Nicoderm Patch 21mg/24Hr UDS positive for cocaine and cannabinoids Prophylactic measure Lovenox 40mg SC Daily pepcid 20mg daily Heart Healthy Diet All medical management per Dr. Roca
[2017-08-13 10:26] LABS: NEUTROPHIL 92 % (50-75); REACTIVE LYMPHOCYTES 1 % (0-0); TOTAL CELLS COUNTED 100
--- NOTE | 2017-08-13 14:01 | CP.PCM.PN ---
Subjective - Date & Time of Evaluation Date of Evaluation: 08/13/17 - Subjective Subjective: Patient seen and examined at bedside. Patient laying in bed in no acute distress on AL. Patient is still complaining of shortness of breath and non- productive cough but says that he if feeling better than yesterday. Patient says he was not able to get any rest last night. Denies fevers, chills, dizziness, abdominal pain, change in bowel movements, or dysuria. Objective - Vital Signs/Intake and Output Vital Signs (last 24 hours): Temp Pulse Resp BP Pulse Ox 98.0 F 75 20 142/98 H 95 08/13/17 07:58 08/13/17 11:20 08/13/17 07:58 08/13/17 09:22 08/13/17 11:20 - Medications Medications: Current Medications Albuterol (Ventolin Hfa 90 Mcg/Actuation (8 G)) 2 puff INH RQ4 PRN PRN Reason: Shortness of Breath Albuterol/Ipratropium (Duoneb 3 Mg/0.5 Mg (3 Ml) Ud) 3 ml INH RQ6 [facility] Last Admin: 08/13/17 13:34 Dose: 3 ml Alprazolam (Xanax) 2 mg PO DAILY PRN PRN Reason: Anxiety Amlodipine Besylate (Norvasc) 5 mg PO DAILY [facility] Aspirin (Ecotrin) 81 mg PO DAILY [facility] Last Admin: 08/13/17 09:22 Dose: 81 mg Enalapril Maleate (Vasotec) 20 mg PO DAILY [facility] Last Admin: 08/13/17 09:21 Dose: 20 mg Enoxaparin Sodium (Lovenox) 40 mg SC DAILY [facility] Last Admin: 08/13/17 09:22 Dose: 40 mg Furosemide (Lasix) 40 mg IVP BID [facility] Last Admin: 08/13/17 10:00 Dose: Not Given Guaifenesin/Dextromethorphan (Robitussin Dm) 10 ml PO TID PRN PRN Reason: Cough and congestion Last Admin: 08/13/17 09:21 Dose: 10 ml Azithromycin 500 mg/ Sodium (Chloride) 250 mls @ 250 mls/hr IVPB DAILY [facility] Last Admin: 08/12/17 10:01 Dose: 250 mls/hr Ceftriaxone Sodium 1 gm/ (Sodium Chloride) 100 mls @ 100 mls/hr IVPB DAILY [facility] Last Admin: 08/13/17 09:51 Dose: 100 mls/hr Methylprednisolone (Solu-Medrol) 40 mg IVP Q8 [facility] Last Admin: 08/13/17 05:26 Dose: 40 mg Montelukast Sodium (Singulair) 10 mg PO HS [facility] Last Admin: 08/12/17 21:53 Dose: 10 mg Nicotine (Nicoderm Cq) 1 patch TD DAILY [facility] Pantoprazole Sodium (Protonix Ec Tab) 40 mg PO DAILY [facility] Last Admin: 08/13/17 09:21 Dose: 40 mg Rosuvastatin Calcium (Crestor) 5 mg PO HS [facility] Last Admin: 08/12/17 21:53 Dose: 5 mg Fluticasone/Salmeterol (Advair Diskus 250/50) 1 puff INH RQ12 [facility] Last Admin: 08/13/17 08:08 Dose: Not Given Spironolactone (Aldactone) 25 mg PO DAILY [facility] Last Admin: 08/13/17 09:21 Dose: 25 mg - Labs Labs: 08/13/17 08:09 08/13/17 08:09 PT 10.8 SECONDS (9.7-12.2) 08/11/17 16:39 INR 1.0 08/11/17 16:39 APTT 29 SECONDS (21-34) 08/11/17 16:39 Assessment and Plan (1) CHF (congestive heart failure) Status: Acute (2) COPD (chronic obstructive pulmonary disease) Status: Acute (3) Pneumonia Status: Acute
--- NOTE | 2017-08-13 17:39 | CP.PCM.PN ---
Subjective - Date & Time of Evaluation Date of Evaluation: 08/13/17 Time of Evaluation: 09:40 - Subjective Subjective: clinically same Objective - Vital Signs/Intake and Output Vital Signs (last 24 hours): Temp Pulse Resp BP Pulse Ox 97.5 F L 74 20 117/70 97 08/13/17 16:33 08/13/17 16:33 08/13/17 16:33 08/13/17 16:33 08/13/17 16:33 Intake and Output: 08/13/17 08/13/17 06:59 18:59 Intake Total 300 Balance 300 - Medications Medications: Current Medications Albuterol (Ventolin Hfa 90 Mcg/Actuation (8 G)) 2 puff INH RQ4 PRN PRN Reason: Shortness of Breath Albuterol/Ipratropium (Duoneb 3 Mg/0.5 Mg (3 Ml) Ud) 3 ml INH RQ6 [facility] Last Admin: 08/13/17 13:34 Dose: 3 ml Alprazolam (Xanax) 2 mg PO DAILY PRN PRN Reason: Anxiety Amlodipine Besylate (Norvasc) 5 mg PO DAILY [facility] Last Admin: 08/13/17 09:25 Dose: 5 mg Aspirin (Ecotrin) 81 mg PO DAILY [facility] Last Admin: 08/13/17 09:22 Dose: 81 mg Enalapril Maleate (Vasotec) 20 mg PO DAILY [facility] Last Admin: 08/13/17 09:21 Dose: 20 mg Enoxaparin Sodium (Lovenox) 40 mg SC DAILY [facility] Last Admin: 08/13/17 09:22 Dose: 40 mg Furosemide (Lasix) 40 mg IVP BID [facility] Last Admin: 08/13/17 10:00 Dose: Not Given Guaifenesin/Dextromethorphan (Robitussin Dm) 10 ml PO TID PRN PRN Reason: Cough and congestion Last Admin: 08/13/17 09:21 Dose: 10 ml Azithromycin 500 mg/ Sodium (Chloride) 250 mls @ 250 mls/hr IVPB DAILY [facility] Last Admin: 08/12/17 10:01 Dose: 250 mls/hr Ceftriaxone Sodium 1 gm/ (Sodium Chloride) 100 mls @ 100 mls/hr IVPB DAILY [facility] Last Admin: 08/13/17 09:51 Dose: 100 mls/hr Methylprednisolone (Solu-Medrol) 40 mg IVP Q8 [facility] Last Admin: 08/13/17 13:59 Dose: 40 mg Montelukast Sodium (Singulair) 10 mg PO HS [facility] Last Admin: 08/12/17 21:53 Dose: 10 mg Nicotine (Nicoderm Cq) 1 patch TD DAILY [facility] Last Admin: 08/13/17 09:25 Dose: 1 patch Pantoprazole Sodium (Protonix Ec Tab) 40 mg PO DAILY [facility] Last Admin: 08/13/17 09:21 Dose: 40 mg Rosuvastatin Calcium (Crestor) 5 mg PO HS [facility] Last Admin: 08/12/17 21:53 Dose: 5 mg Fluticasone/Salmeterol (Advair Diskus 250/50) 1 puff INH RQ12 [facility] Last Admin: 08/13/17 08:08 Dose: Not Given Spironolactone (Aldactone) 25 mg PO DAILY [facility] Last Admin: 08/13/17 09:21 Dose: 25 mg - Labs Labs: 08/13/17 08:09 08/13/17 08:09 PT 10.8 SECONDS (9.7-12.2) 08/11/17 16:39 INR 1.0 08/11/17 16:39 APTT 29 SECONDS (21-34) 08/11/17 16:39 - Constitutional Appears: Well - Head Exam Head Exam: ATRAUMATIC, NORMAL INSPECTION, NORMOCEPHALIC - Eye Exam Eye Exam: EOMI, Normal appearance, PERRL Pupil Exam: NORMAL ACCOMODATION, PERRL - ENT Exam ENT Exam: Mucous Membranes Moist, Normal Exam - Neck Exam Neck Exam: Full ROM, Normal Inspection. absent: Lymphadenopathy - Respiratory Exam Respiratory Exam: Decreased Breath Sounds - Cardiovascular Exam Cardiovascular Exam: REGULAR RHYTHM, +S1, +S2 - GI/Abdominal Exam GI & Abdominal Exam: Soft, Diminished Bowel Sounds - Rectal Exam Rectal Exam: Deferred
[2017-08-14] MEDS: Albuterol-Ipratrop 3 mg / 0.5 (3 ml) UD INH SCH ×4 (01:53→19:52)
[2017-08-14] MEDS: MethylPREDNISolone 40 mg Vial IVP SCH ×3 (06:06→21:39)
[2017-08-14] MEDS: Fluticasone-Salmeterol 250-50mcg Diskus INH SCH (08:01)
[2017-08-14 08:23] LABS: BASO % 0.1 % (0.0-2.0); HEMATOCRIT 45.1 % (35.0-51.0); LYMPH # 0.5 K/uL (1.0-4.3); LYMPH % 3.5 % (20.0-40.0); MEAN CELL VOLUME 95.1 fL (80.0-94.0); MEAN CORPUSCULAR HEMOGLOBIN 31.8 pg (27.0-31.0); MEAN CORPUSCULAR HGB CONC 33.4 g/dL (33.0-37.0); MEAN PLATELET VOLUME 9.4 fL (7.2-11.7); MONO # 0.8 K/uL (0.0-0.8); MONO % 6.1 % (0.0-10.0); PLATELET COUNT 251 K/uL (130-400); RED CELL DISTRIBUTION WIDTH 18.5 % (11.5-14.5); WHITE BLOOD COUNT 13.6 K/uL (4.8-10.8)
[2017-08-14 08:59] LABS: ALB/GLOB RATIO 1.1 (1.0-2.1); ALKALINE PHOSPHATASE 64 U/L (38-126); ALT/SGPT 55 U/L (21-72); AST/SGOT 25 U/L (17-59); BILIRUBIN,TOTAL 0.5 mg/dL (0.2-1.3); BLOOD UREA NITROGEN 32 mg/dL (9-20); CALCIUM 8.9 mg/dl (8.6-10.4); CARBON DIOXIDE 31 mmol/L (22-30); CHLORIDE 100 mmol/L (98-107); GFR AFRICAN-AMERICAN > 60; GLUCOSE,RANDOM 127 mg/dL (75-110); MAGNESIUM 1.9 mg/dL (1.6-2.3); PHOSPHOROUS 5.9 mg/dL (2.5-4.5); POTASSIUM 4.5 mmol/L (3.6-5.2); SODIUM 138 mmol/L (132-148); TOTAL PROTEIN 7.5 g/dL (6.3-8.3)
[2017-08-14] MEDS: guaiFENesin DM 200 mg-20 mg/10 ml UD PO PRN ×2 (09:58→21:18)
[2017-08-14] MEDS: Pantoprazole 40 mg EC Tab PO SCH (09:58)
[2017-08-14] MEDS: Enoxaparin 40 mg Syringe SC SCH (09:59)
[2017-08-14] MEDS ORDERED: Pneumococcal 23-Valent Vaccine IM ONE (10:00)
[2017-08-14] MEDS ORDERED: Influenza Vaccine 60 mcg/0.5 mL SYR (4YR UP) IM ONE (10:00)
[2017-08-14 10:33] LABS: NEUTROPHIL 92 % (50-75); TOTAL CELLS COUNTED 100
--- NOTE | 2017-08-14 12:09 | CP.PCM.PN ---
Subjective - Date & Time of Evaluation Date of Evaluation: 08/14/17 Time of Evaluation: 12:07 - Subjective Subjective: PGY-[address] Roca's service: Pt seen and examined at bedside. Nursing reports no acute events overnight. Patient admits SOB improving, and is able to walk to now walk farther without becoming winded. He denies chest pain, palpitations, dizziness, lightheadedness , or abdominal pain. Per Dr. Hanna, patient for AICD placement tomorrow at [place] by Dr. Poole. Objective - Vital Signs/Intake and Output Vital Signs (last 24 hours): Temp Pulse Resp BP Pulse Ox 97.5 F L 77 20 128/82 97 08/14/17 08:00 08/14/17 08:00 08/14/17 08:00 08/14/17 09:58 08/14/17 08:00 - Medications Medications: Current Medications Albuterol (Ventolin Hfa 90 Mcg/Actuation (8 G)) 2 puff INH RQ4 PRN PRN Reason: Shortness of Breath Albuterol/Ipratropium (Duoneb 3 Mg/0.5 Mg (3 Ml) Ud) 3 ml INH RQ6 [facility] Last Admin: 08/14/17 08:00 Dose: 3 ml Alprazolam (Xanax) 2 mg PO DAILY PRN PRN Reason: Anxiety Amlodipine Besylate (Norvasc) 5 mg PO DAILY [facility] Last Admin: 08/14/17 09:58 Dose: 5 mg Aspirin (Ecotrin) 81 mg PO DAILY [facility] Last Admin: 08/14/17 09:58 Dose: 81 mg Enalapril Maleate (Vasotec) 20 mg PO DAILY [facility] Last Admin: 08/14/17 09:58 Dose: 20 mg Enoxaparin Sodium (Lovenox) 40 mg SC DAILY [facility] Last Admin: 08/14/17 09:59 Dose: 40 mg Furosemide (Lasix) 40 mg IVP BID [facility] Last Admin: 08/14/17 09:58 Dose: 40 mg Guaifenesin/Dextromethorphan (Robitussin Dm) 10 ml PO TID PRN PRN Reason: Cough and congestion Last Admin: 08/14/17 09:58 Dose: 10 ml Azithromycin 500 mg/ Sodium (Chloride) 250 mls @ 250 mls/hr IVPB DAILY [facility] Last Admin: 12/04/17 10:01 Dose: 250 mls/hr Ceftriaxone Sodium 1 gm/ (Sodium Chloride) 100 mls @ 100 mls/hr IVPB DAILY [facility] Last Admin: 08/14/17 09:59 Dose: 100 mls/hr Methylprednisolone (Solu-Medrol) 40 mg IVP Q8 [facility] Last Admin: 08/14/17 06:06 Dose: 40 mg Montelukast Sodium (Singulair) 10 mg PO HS [facility] Last Admin: 08/13/17 21:34 Dose: 10 mg Nicotine (Nicoderm Cq) 1 patch TD DAILY [facility] Last Admin: 08/14/17 09:59 Dose: 1 patch Pantoprazole Sodium (Protonix Ec Tab) 40 mg PO DAILY [facility] Last Admin: 08/14/17 09:58 Dose: 40 mg Rosuvastatin Calcium (Crestor) 5 mg PO HS [facility] Last Admin: 08/13/17 21:34 Dose: 5 mg Fluticasone/Salmeterol (Advair Diskus 250/50) 1 puff INH RQ12 [facility] Last Admin: 08/14/17 08:01 Dose: Not Given Spironolactone (Aldactone) 25 mg PO DAILY [facility] Last Admin: 08/14/17 09:58 Dose: 25 mg - Labs Labs: 08/14/17 08:12 08/14/17 08:12 PT 10.8 SECONDS (9.7-12.2) 08/11/17 16:39 INR 1.0 08/11/17 16:39 APTT 29 SECONDS (21-34) 08/11/17 16:39 - Additional Findings Additional findings: - Constitutional Appears: Non-toxic, No Acute Distress - Head Exam Head Exam: ATRAUMATIC, NORMAL INSPECTION, NORMOCEPHALIC - ENT Exam ENT Exam: Mucous Membranes Moist - Respiratory Exam Respiratory Exam: Rales, NORMAL BREATHING PATTERN. absent: Rhonchi, Wheezes - Cardiovascular Exam Cardiovascular Exam: REGULAR RHYTHM, Murmur - GI/Abdominal Exam GI & Abdominal Exam: Soft, Normal Bowel Sounds - Extremities Exam Extremities Exam: Normal Capillary Refill, Normal Inspection - Neurological Exam Neurological Exam: Alert, Awake, Oriented x3 - Psychiatric Exam Psychiatric exam: Normal Affect, Normal Mood - Skin Skin Exam: Normal Color, Warm Assessment and Plan - Assessment and Plan (Free Text) Plan: CHF exacerbation, systolic dysfunction Admit to tele Hx of multiple admission to [facility] for similar etiology Check daily weights, monitor Is & Os, fluid restriction BNP 9670, was [id number] on previous admissions CXR (08/11/17): borderline developing infiltrate at medial right base w remaining lung avina clear. Chronic interstitial pulmonary changes noted. EKG (08/11/17): left atrial enlargement, prolonged QT, no acute ST/T wave changes - patient had MUGA scan in 11/2016 with EF 25%. patient was given life vest but has not been wearing it recently. patient not compliant with lisinopril or lasix GLENN negative x1 Lasix 40mg IV BID ASA 81 mg PO daily Enalapril 20 mg PO daily Rosuvastatin 5 mg PO hs Spirinolatone [address] Hanna consulted, help appreciated - MUGA scan shows EF 25%; given life vest but noncompliant. Avoid BB as pt with hx of cocaine use - f/u repeat ECHO - Per DR. Hanna, pt for AICD placement tomorrow (08/15/17) at [place] Prolonged QT interval EKG (08/11/17): NSR, left atrial enlargement, QTc 484 - f/u repeat EKG - Hold Azithromycin until QTc improves Pneumonia, Community Acquired CXR (08/11/17): borderline developing infiltrate at medial right base w remaining lung avina clear. Chronic interstitial pulmonary changes noted. Ceftriaxone 1gm IV Daily only per Dr. Roca - Azithromycin 500mg IV Daily DISCONTINUED DUE TO QTc Prolongation Robitussin DM 10ml PO TID for cough Legionella, influenza and mycoplasma - all negative Dr. Wills, pulmonolgy datastage consultant, help appreciated - continue current treatment History of COPD, possible exacerbating factor of SOB Patient smokes 1/4 to 1/2 PPD x 30-40 years Decreased Solumedrol 40 mg IV to q12h Singulair 10mg PO HS Duoneb Q6H K[facility] HTN Well controlled - Enalapril 20mg PO Daily - Continue Norvasc 5mg PO Daily History of substance abuse disorder UDS positive for cocaine and cannabinoids - Avoid beta pili due to hx of cocaine abuse Nicoderm Patch 21mg/24Hr Prophylactic measure Lovenox 40mg SC Daily Pepcid 20mg daily [facility] Heart Healthy Diet Disposition: Pt for transfer to [place] tomorrow for AICD placement by Dr. Zulema Hawk PGY-2 All medical management per Dr. Roca
--- NOTE | 2017-08-14 13:03 | CP.PCM.PN ---
Subjective - Date & Time of Evaluation Date of Evaluation: 08/14/17 Time of Evaluation: 12:50 - Subjective Subjective: STUDIO DATA ANALYST NOTES Patient seen today , denies any chest pain, sob improved , denies any other complaints 62 yr old male admitted for sob/ CHF D/W Dr. Hanna, patient for AICD placement tomorrow at [place] by Dr. Poole Discussed with patient , who agrees for the procedure The above plan discussed with DR. Mann lua Objective - Vital Signs/Intake and Output Vital Signs (last 24 hours): Temp Pulse Resp BP Pulse Ox 97.5 F L 77 20 128/82 97 08/14/17 08:00 08/14/17 08:00 08/14/17 08:00 08/14/17 09:58 08/14/17 08:00 - Medications Medications: Current Medications Albuterol (Ventolin Hfa 90 Mcg/Actuation (8 G)) 2 puff INH RQ4 PRN PRN Reason: Shortness of Breath Albuterol/Ipratropium (Duoneb 3 Mg/0.5 Mg (3 Ml) Ud) 3 ml INH RQ6 [facility] Last Admin: 08/14/17 08:00 Dose: 3 ml Alprazolam (Xanax) 2 mg PO DAILY PRN PRN Reason: Anxiety Amlodipine Besylate (Norvasc) 5 mg PO DAILY [facility] Last Admin: 08/14/17 09:58 Dose: 5 mg Aspirin (Ecotrin) 81 mg PO DAILY [facility] Last Admin: 08/14/17 09:58 Dose: 81 mg Enalapril Maleate (Vasotec) 20 mg PO DAILY [facility] Last Admin: 08/14/17 09:58 Dose: 20 mg Enoxaparin Sodium (Lovenox) 40 mg SC DAILY [facility] Last Admin: 08/14/17 09:59 Dose: 40 mg Furosemide (Lasix) 40 mg IVP BID [facility] Last Admin: 08/14/17 09:58 Dose: 40 mg Guaifenesin/Dextromethorphan (Robitussin Dm) 10 ml PO TID PRN PRN Reason: Cough and congestion Last Admin: 08/14/17 09:58 Dose: 10 ml Azithromycin 500 mg/ Sodium (Chloride) 250 mls @ 250 mls/hr IVPB DAILY [facility] Last Admin: 08/12/17 10:01 Dose: 250 mls/hr Ceftriaxone Sodium 1 gm/ (Sodium Chloride) 100 mls @ 100 mls/hr IVPB DAILY [facility] Last Admin: 08/14/17 09:59 Dose: 100 mls/hr Methylprednisolone (Solu-Medrol) 40 mg IVP Q8 [facility] Last Admin: 08/14/17 06:06 Dose: 40 mg Montelukast Sodium (Singulair) 10 mg PO HS [facility] Last Admin: 08/13/17 21:34 Dose: 10 mg Nicotine (Nicoderm Cq) 1 patch TD DAILY [facility] Last Admin: 08/14/17 09:59 Dose: 1 patch Pantoprazole Sodium (Protonix Ec Tab) 40 mg PO DAILY [facility] Last Admin: 08/14/17 09:58 Dose: 40 mg Rosuvastatin Calcium (Crestor) 5 mg PO HS [facility] Last Admin: 08/13/17 21:34 Dose: 5 mg Fluticasone/Salmeterol (Advair Diskus 250/50) 1 puff INH RQ12 [facility] Last Admin: 08/14/17 08:01 Dose: Not Given Spironolactone (Aldactone) 25 mg PO DAILY [facility] Last Admin: 08/14/17 09:58 Dose: 25 mg - Labs Labs: 08/14/17 08:12 08/14/17 08:12 PT 10.8 SECONDS (9.7-12.2) 08/11/17 16:39 INR 1.0 08/11/17 16:39 APTT 29 SECONDS (21-34) 08/11/17 16:39
[2017-08-14] MEDS ORDERED: MethylPREDNISolone 40 mg Vial IVP SCH (18:00)
--- NOTE | 2017-08-14 18:20 | CP.PCM.PN ---
Subjective - Date & Time of Evaluation Date of Evaluation: 08/14/17 Time of Evaluation: 11:10 - Subjective Subjective: Patient seen and examined Less shortness of breath and cough Afebrile Seen by cardiology For AICD Continue nebulizer treatment Continue steroids Objective - Vital Signs/Intake and Output Vital Signs (last 24 hours): Temp Pulse Resp BP Pulse Ox 97.3 F L 73 20 128/74 96 08/14/17 16:00 08/14/17 17:49 08/14/17 16:00 08/14/17 17:08 08/14/17 16:00 Intake and Output: 08/14/17 08/14/17 06:59 18:59 Intake Total 380 Balance 380 - Medications Medications: Current Medications Albuterol (Ventolin Hfa 90 Mcg/Actuation (8 G)) 2 puff INH RQ4 PRN PRN Reason: Shortness of Breath Albuterol/Ipratropium (Duoneb 3 Mg/0.5 Mg (3 Ml) Ud) 3 ml INH RQ6 [facility] Last Admin: 08/14/17 13:53 Dose: 3 ml Alprazolam (Xanax) 2 mg PO DAILY PRN PRN Reason: Anxiety Amlodipine Besylate (Norvasc) 5 mg PO DAILY [facility] Last Admin: 08/14/17 09:58 Dose: 5 mg Aspirin (Ecotrin) 81 mg PO DAILY [facility] Last Admin: 08/14/17 09:58 Dose: 81 mg Enalapril Maleate (Vasotec) 20 mg PO DAILY [facility] Last Admin: 08/14/17 09:58 Dose: 20 mg Enoxaparin Sodium (Lovenox) 40 mg SC DAILY [facility] Last Admin: 08/14/17 09:59 Dose: 40 mg Furosemide (Lasix) 40 mg IVP BID [facility] Last Admin: 08/14/17 17:08 Dose: 40 mg Guaifenesin/Dextromethorphan (Robitussin Dm) 10 ml PO TID PRN PRN Reason: Cough and congestion Last Admin: 08/14/17 09:58 Dose: 10 ml Azithromycin 500 mg/ Sodium (Chloride) 250 mls @ 250 mls/hr IVPB DAILY [facility] Last Admin: 08/12/17 10:01 Dose: 250 mls/hr Ceftriaxone Sodium 1 gm/ (Sodium Chloride) 100 mls @ 100 mls/hr IVPB DAILY [facility] Last Admin: 12/06/17 09:59 Dose: 100 mls/hr Methylprednisolone (Solu-Medrol) 40 mg IVP Q12H [facility] Montelukast Sodium (Singulair) 10 mg PO HS [facility] Last Admin: 08/13/17 21:34 Dose: 10 mg Nicotine (Nicoderm Cq) 1 patch TD DAILY [facility] Last Admin: 08/14/17 09:59 Dose: 1 patch Pantoprazole Sodium (Protonix Ec Tab) 40 mg PO DAILY [facility] Last Admin: 08/14/17 09:58 Dose: 40 mg Rosuvastatin Calcium (Crestor) 5 mg PO HS [facility] Last Admin: 08/13/17 21:34 Dose: 5 mg Fluticasone/Salmeterol (Advair Diskus 250/50) 1 puff INH RQ12 [facility] Last Admin: 08/14/17 08:01 Dose: Not Given Spironolactone (Aldactone) 25 mg PO DAILY [facility] Last Admin: 08/14/17 09:58 Dose: 25 mg - Labs Labs: 08/14/17 08:12 08/14/17 08:12 PT 10.8 SECONDS (9.7-12.2) 08/11/17 16:39 INR 1.0 08/11/17 16:39 APTT 29 SECONDS (21-34) 08/11/17 16:39 - Head Exam Head Exam: ATRAUMATIC, NORMOCEPHALIC - Eye Exam Eye Exam: Normal appearance - ENT Exam ENT Exam: Mucous Membranes Moist - Neck Exam Neck Exam: Normal Inspection - Respiratory Exam Respiratory Exam: Rales, Rhonchi - Cardiovascular Exam Cardiovascular Exam: REGULAR RHYTHM Assessment and Plan (1) CHF (congestive heart failure) Status: Acute (2) COPD (chronic obstructive pulmonary disease) Status: Acute (3) Pneumonia Status: Acute
--- NOTE | 2017-08-14 19:27 | CP.PCM.PN ---
Subjective - Date & Time of Evaluation Date of Evaluation: 08/14/17 Time of Evaluation: 09:00 - Subjective Subjective: clinically same Objective - Vital Signs/Intake and Output Vital Signs (last 24 hours): Temp Pulse Resp BP Pulse Ox 97.3 F L 73 20 128/74 96 08/14/17 16:00 08/14/17 17:49 08/14/17 16:00 08/14/17 17:08 08/14/17 16:00 Intake and Output: 08/14/17 08/15/17 18:59 06:59 Intake Total 380 Balance 380 - Medications Medications: Current Medications Albuterol (Ventolin Hfa 90 Mcg/Actuation (8 G)) 2 puff INH RQ4 PRN PRN Reason: Shortness of Breath Albuterol/Ipratropium (Duoneb 3 Mg/0.5 Mg (3 Ml) Ud) 3 ml INH RQ6 [facility] Last Admin: 08/14/17 13:53 Dose: 3 ml Alprazolam (Xanax) 2 mg PO DAILY PRN PRN Reason: Anxiety Amlodipine Besylate (Norvasc) 5 mg PO DAILY [facility] Last Admin: 08/14/17 09:58 Dose: 5 mg Aspirin (Ecotrin) 81 mg PO DAILY [facility] Last Admin: 08/14/17 09:58 Dose: 81 mg Enalapril Maleate (Vasotec) 20 mg PO DAILY [facility] Last Admin: 08/14/17 09:58 Dose: 20 mg Enoxaparin Sodium (Lovenox) 40 mg SC DAILY [facility] Last Admin: 08/14/17 09:59 Dose: 40 mg Furosemide (Lasix) 40 mg IVP BID [facility] Last Admin: 08/14/17 17:08 Dose: 40 mg Guaifenesin/Dextromethorphan (Robitussin Dm) 10 ml PO TID PRN PRN Reason: Cough and congestion Last Admin: 08/14/17 09:58 Dose: 10 ml Azithromycin 500 mg/ Sodium (Chloride) 250 mls @ 250 mls/hr IVPB DAILY [facility] Last Admin: 08/12/17 10:01 Dose: 250 mls/hr Ceftriaxone Sodium 1 gm/ (Sodium Chloride) 100 mls @ 100 mls/hr IVPB DAILY [facility] Last Admin: 08/14/17 09:59 Dose: 100 mls/hr Methylprednisolone (Solu-Medrol) 40 mg IVP Q12H [facility] Montelukast Sodium (Singulair) 10 mg PO HS [facility] Last Admin: 08/13/17 21:34 Dose: 10 mg Nicotine (Nicoderm Cq) 1 patch TD DAILY [facility] Last Admin: 08/14/17 09:59 Dose: 1 patch Pantoprazole Sodium (Protonix Ec Tab) 40 mg PO DAILY [facility] Last Admin: 08/14/17 09:58 Dose: 40 mg Rosuvastatin Calcium (Crestor) 5 mg PO HS [facility] Last Admin: 08/13/17 21:34 Dose: 5 mg Fluticasone/Salmeterol (Advair Diskus 250/50) 1 puff INH RQ12 [facility] Last Admin: 08/14/17 08:01 Dose: Not Given Spironolactone (Aldactone) 25 mg PO DAILY [facility] Last Admin: 08/14/17 09:58 Dose: 25 mg - Labs Labs: 08/14/17 08:12 08/14/17 08:12 PT 10.8 SECONDS (9.7-12.2) 08/11/17 16:39 INR 1.0 08/11/17 16:39 APTT 29 SECONDS (21-34) 08/11/17 16:39 - Constitutional Appears: Well - Head Exam Head Exam: ATRAUMATIC, NORMAL INSPECTION, NORMOCEPHALIC - Eye Exam Eye Exam: EOMI, Normal appearance, PERRL Pupil Exam: NORMAL ACCOMODATION, PERRL - ENT Exam ENT Exam: Mucous Membranes Moist, Normal Exam - Neck Exam Neck Exam: Full ROM, Normal Inspection. absent: Lymphadenopathy - Respiratory Exam Respiratory Exam: Decreased Breath Sounds - Cardiovascular Exam Cardiovascular Exam: REGULAR RHYTHM, +S1, +S2 - GI/Abdominal Exam GI & Abdominal Exam: Soft, Diminished Bowel Sounds - Rectal Exam Rectal Exam: Deferred
--- NOTE | 2017-08-15 00:29 | CP.PCM.PN ---
Subjective - Date & Time of Evaluation Date of Evaluation: 08/14/17 Time of Evaluation: 15:20 - Subjective Subjective: Patient feels better Repeat ECHO shows low EF No improvement in the EF after more than 3 month therapy for THOMAS I and B blockers For AICD tomorrow at the [facility] Objective - Vital Signs/Intake and Output Vital Signs (last 24 hours): Temp Pulse Resp BP Pulse Ox 97.3 F L 77 20 128/74 96 08/14/17 16:00 08/14/17 23:52 08/14/17 16:00 08/14/17 17:08 08/14/17 16:00 Intake and Output: 08/14/17 08/15/17 18:59 06:59 Intake Total 380 700 Balance 380 700 - Medications Medications: Current Medications Albuterol (Ventolin Hfa 90 Mcg/Actuation (8 G)) 2 puff INH RQ4 PRN PRN Reason: Shortness of Breath Albuterol/Ipratropium (Duoneb 3 Mg/0.5 Mg (3 Ml) Ud) 3 ml INH RQ6 [facility] Last Admin: 08/14/17 19:52 Dose: 3 ml Alprazolam (Xanax) 2 mg PO DAILY PRN PRN Reason: Anxiety Amlodipine Besylate (Norvasc) 5 mg PO DAILY [facility] Last Admin: 08/14/17 09:58 Dose: 5 mg Aspirin (Ecotrin) 81 mg PO DAILY [facility] Last Admin: 08/14/17 09:58 Dose: 81 mg Enalapril Maleate (Vasotec) 20 mg PO DAILY [facility] Last Admin: 08/14/17 09:58 Dose: 20 mg Enoxaparin Sodium (Lovenox) 40 mg SC DAILY [facility] Last Admin: 08/14/17 09:59 Dose: 40 mg Furosemide (Lasix) 40 mg IVP BID [facility] Last Admin: 08/14/17 17:08 Dose: 40 mg Guaifenesin/Dextromethorphan (Robitussin Dm) 10 ml PO TID PRN PRN Reason: Cough and congestion Last Admin: 08/14/17 21:18 Dose: 10 ml Azithromycin 500 mg/ Sodium (Chloride) 250 mls @ 250 mls/hr IVPB DAILY [facility] Last Admin: 08/12/17 10:01 Dose: 250 mls/hr Ceftriaxone Sodium 1 gm/ (Sodium Chloride) 100 mls @ 100 mls/hr IVPB DAILY [facility] Last Admin: 08/14/17 09:59 Dose: 100 mls/hr Methylprednisolone (Solu-Medrol) 40 mg IVP Q12H [facility] Last Admin: 08/14/17 21:39 Dose: Not Given Montelukast Sodium (Singulair) 10 mg PO HS [facility] Last Admin: 08/14/17 21:12 Dose: 10 mg Nicotine (Nicoderm Cq) 1 patch TD DAILY [facility] Last Admin: 08/14/17 09:59 Dose: 1 patch Pantoprazole Sodium (Protonix Ec Tab) 40 mg PO DAILY [facility] Last Admin: 08/14/17 09:58 Dose: 40 mg Rosuvastatin Calcium (Crestor) 5 mg PO HS [facility] Last Admin: 08/14/17 21:12 Dose: 5 mg Fluticasone/Salmeterol (Advair Diskus 250/50) 1 puff INH RQ12 [facility] Last Admin: 08/14/17 08:01 Dose: Not Given Spironolactone (Aldactone) 25 mg PO DAILY [facility] Last Admin: 08/14/17 09:58 Dose: 25 mg - Labs Labs: 08/14/17 08:12 08/14/17 08:12 PT 10.8 SECONDS (9.7-12.2) 08/11/17 16:39 INR 1.0 08/11/17 16:39 APTT 29 SECONDS (21-34) 08/11/17 16:39
[2017-08-15] MEDS: Albuterol-Ipratrop 3 mg / 0.5 (3 ml) UD INH SCH ×3 (02:26→13:10)
[2017-08-15 02:46] VITALS: O2SAT 97
--- NOTE | 2017-08-15 07:00 | CP.PCM.PN ---
Subjective - Date & Time of Evaluation Date of Evaluation: 08/15/17 Time of Evaluation: 09:44 - Subjective Subjective: PGY2 Medicine note for Dr. Mann Roca. All management as per Dr. Mann Roca The patient was seen and examined at bedside this AM; he is for possible transfer to [facility] today if he has a bed; if not he is already scheduled for cath on 08/16. He offers no complaints today. Objective - Vital Signs/Intake and Output Vital Signs (last 24 hours): Temp Pulse Resp BP Pulse Ox 97.6 F 78 20 130/85 97 08/15/17 00:00 08/15/17 02:46 08/15/17 00:00 08/15/17 00:00 08/15/17 00:00 Intake and Output: 08/14/17 08/15/17 18:59 06:59 Intake Total 380 820 Balance 380 820 - Medications Medications: Current Medications Albuterol (Ventolin Hfa 90 Mcg/Actuation (8 G)) 2 puff INH RQ4 PRN PRN Reason: Shortness of Breath Albuterol/Ipratropium (Duoneb 3 Mg/0.5 Mg (3 Ml) Ud) 3 ml INH RQ6 [facility] Last Admin: 08/15/17 02:26 Dose: Not Given Alprazolam (Xanax) 2 mg PO DAILY PRN PRN Reason: Anxiety Amlodipine Besylate (Norvasc) 5 mg PO DAILY [facility] Last Admin: 08/14/17 09:58 Dose: 5 mg Aspirin (Ecotrin) 81 mg PO DAILY [facility] Last Admin: 08/14/17 09:58 Dose: 81 mg Enalapril Maleate (Vasotec) 20 mg PO DAILY [facility] Last Admin: 08/14/17 09:58 Dose: 20 mg Enoxaparin Sodium (Lovenox) 40 mg SC DAILY [facility] Last Admin: 08/14/17 09:59 Dose: 40 mg Furosemide (Lasix) 40 mg IVP BID [facility] Last Admin: 08/14/17 17:08 Dose: 40 mg Guaifenesin/Dextromethorphan (Robitussin Dm) 10 ml PO TID PRN PRN Reason: Cough and congestion Last Admin: 08/14/17 21:18 Dose: 10 ml Azithromycin 500 mg/ Sodium (Chloride) 250 mls @ 250 mls/hr IVPB DAILY [facility] Last Admin: 08/12/17 10:01 Dose: 250 mls/hr Ceftriaxone Sodium 1 gm/ (Sodium Chloride) 100 mls @ 100 mls/hr IVPB DAILY [facility] Last Admin: 08/14/17 09:59 Dose: 100 mls/hr Methylprednisolone (Solu-Medrol) 40 mg IVP Q12H [facility] Last Admin: 08/14/17 21:39 Dose: Not Given Montelukast Sodium (Singulair) 10 mg PO HS [facility] Last Admin: 08/14/17 21:12 Dose: 10 mg Nicotine (Nicoderm Cq) 1 patch TD DAILY [facility] Last Admin: 08/14/17 09:59 Dose: 1 patch Pantoprazole Sodium (Protonix Ec Tab) 40 mg PO DAILY [facility] Last Admin: 08/14/17 09:58 Dose: 40 mg Rosuvastatin Calcium (Crestor) 5 mg PO HS [facility] Last Admin: 08/14/17 21:12 Dose: 5 mg Fluticasone/Salmeterol (Advair Diskus 250/50) 1 puff INH RQ12 [facility] Last Admin: 08/14/17 08:01 Dose: Not Given Spironolactone (Aldactone) 25 mg PO DAILY [facility] Last Admin: 08/14/17 09:58 Dose: 25 mg - Labs Labs: 08/14/17 08:12 08/14/17 08:12 PT 10.8 SECONDS (9.7-12.2) 08/11/17 16:39 INR 1.0 08/11/17 16:39 APTT 29 SECONDS (21-34) 08/11/17 16:39 - Constitutional Appears: Non-toxic - Head Exam Head Exam: ATRAUMATIC - Eye Exam Eye Exam: Normal appearance - ENT Exam ENT Exam: Mucous Membranes Moist - Respiratory Exam Respiratory Exam: absent: Rales, Rhonchi, Wheezes - Cardiovascular Exam Cardiovascular Exam: REGULAR RHYTHM - GI/Abdominal Exam GI & Abdominal Exam: Soft - Extremities Exam Extremities Exam: absent: Calf Tenderness - Neurological Exam Neurological Exam: Awake - Skin Skin Exam: Warm Assessment and Plan - Assessment and Plan (Free Text) Assessment: CHF exacerbation, systolic dysfunction Admit to [facility] [place] of multiple admission to [facility] for similar etiology Check daily weights, monitor Is & Os, fluid restriction BNP 9670, was [id number] on previous admissions CXR (08/11/17): borderline developing infiltrate at medial right base w remaining lung avina clear. Chronic interstitial pulmonary changes noted. EKG (08/11/17): left atrial enlargement, prolonged QT, no acute ST/T wave changes - patient had MUGA scan in 11/2016 with EF 25%. patient was given life vest but has not been wearing it recently. patient not compliant with lisinopril or lasix GLENN negative x1 Lasix 40mg IV BID [facility] 81 mg PO daily Enalapril 20 mg PO daily Rosuvastatin 5 mg PO hs Spirinolatone [address] Hanna consulted, help appreciated - MUGA scan shows EF 25%; given life vest but noncompliant. Avoid BB as pt with hx of cocaine use - f/u repeat ECHO - Per DR. Hanna, pt for AICD placement tomorrow (08/15/17) at [facility] Prolonged QT interval EKG (08/11/17): NSR, left atrial enlargement, QTc 484 - f/u repeat EKG - Hold Azithromycin until QTc improves Pneumonia, Community Acquired CXR (08/11/17): borderline developing infiltrate at medial right base w remaining lung avina clear. Chronic interstitial pulmonary changes noted. Ceftriaxone 1gm IV Daily only per Dr. Roca - Azithromycin 500mg IV Daily DISCONTINUED DUE TO QTc Prolongation Robitussin DM 10ml PO TID for cough Legionella, influenza and mycoplasma - all negative Dr. Wills, pulmonolgy portrait consultant, help appreciated - continue current treatment History of COPD, possible exacerbating factor of SOB Patient smokes 1/4 to 1/2 PPD x 30-40 years Decreased Solumedrol 40 mg IV to q12h Singulair 10mg PO HS Duoneb Q6H [facility] HTN Well controlled - Enalapril 20mg PO Daily - Continue Norvasc 5mg PO Daily History of substance abuse disorder UDS positive for cocaine and cannabinoids - Avoid beta pili due to hx of cocaine abuse Nicoderm Patch 21mg/24Hr Prophylactic measure Lovenox 40mg SC Daily Pepcid 20mg daily SCDs Heart Healthy Diet Disposition: Pt for transfer to [facility] tomorrow for AICD placement by Dr. Zulema ARAGON filled out and completed AICD form completed All medical management per Dr. Roca
[2017-08-15] MEDS: Fluticasone-Salmeterol 250-50mcg Diskus INH SCH (07:09)
[2017-08-15 08:19] VITALS: PULSE 68; TEMP 98
[2017-08-15 08:35] LABS: BASO % 0.1 % (0.0-2.0); HEMATOCRIT 48.4 % (35.0-51.0); LYMPH # 0.9 K/uL (1.0-4.3); MEAN CORPUSCULAR HEMOGLOBIN 31.8 pg (27.0-31.0); MEAN CORPUSCULAR HGB CONC 33.4 g/dL (33.0-37.0); MEAN PLATELET VOLUME 9.2 fL (7.2-11.7); MONO # 1.2 K/uL (0.0-0.8); MONO % 9.4 % (0.0-10.0); PLATELET COUNT 274 K/uL (130-400); RED CELL DISTRIBUTION WIDTH 18.5 % (11.5-14.5); WHITE BLOOD COUNT 12.7 K/uL (4.8-10.8)
[2017-08-15 08:41] LABS: ALKALINE PHOSPHATASE 59 U/L (38-126); ALT/SGPT 54 U/L (21-72); AST/SGOT 26 U/L (17-59); BILIRUBIN,TOTAL 0.5 mg/dL (0.2-1.3); BLOOD UREA NITROGEN 33 mg/dL (9-20); CALCIUM 8.6 mg/dl (8.6-10.4); CARBON DIOXIDE 31 mmol/L (22-30); CHLORIDE 99 mmol/L (98-107); GFR AFRICAN-AMERICAN > 60; GLUCOSE,RANDOM 122 mg/dL (75-110); MAGNESIUM 2.1 mg/dL (1.6-2.3); PHOSPHOROUS 5.1 mg/dL (2.5-4.5); POTASSIUM 4.8 mmol/L (3.6-5.2); SODIUM 135 mmol/L (132-148); TOTAL PROTEIN 7.4 g/dL (6.3-8.3)
[2017-08-15] MEDS: Pantoprazole 40 mg EC Tab PO SCH (10:09)
[2017-08-15] MEDS: MethylPREDNISolone 40 mg Vial IVP SCH (10:10)
[2017-08-15] MEDS: guaiFENesin DM 200 mg-20 mg/10 ml UD PO PRN (10:11)
[2017-08-15 10:48] LABS: NEUTROPHIL 85 % (50-75); TOTAL CELLS COUNTED 100
[2017-08-15 11:11] VITALS: BP 142/78
--- NOTE | 2017-08-15 14:29 | CP.PCM.PN ---
Subjective - Date & Time of Evaluation Date of Evaluation: 08/15/17 Time of Evaluation: 08:25 - Subjective Subjective: the patient seen and examined Breathing much improved still has dry cough Complaining of pain left knee Awaiting for transfer for AICD Objective - Vital Signs/Intake and Output Vital Signs (last 24 hours): Temp Pulse Resp BP Pulse Ox 98.0 F 68 20 142/78 97 08/15/17 08:18 08/15/17 08:18 08/15/17 08:18 08/15/17 10:11 08/15/17 08:18 Intake and Output: 08/15/17 08/15/17 06:59 18:59 Intake Total 820 Balance 820 - Medications Medications: Current Medications Albuterol (Ventolin Hfa 90 Mcg/Actuation (8 G)) 2 puff INH RQ4 PRN PRN Reason: Shortness of Breath Albuterol/Ipratropium (Duoneb 3 Mg/0.5 Mg (3 Ml) Ud) 3 ml INH RQ6 [facility] Last Admin: 08/15/17 13:10 Dose: 3 ml Alprazolam (Xanax) 2 mg PO DAILY PRN PRN Reason: Anxiety Amlodipine Besylate (Norvasc) 5 mg PO DAILY [facility] Last Admin: 08/15/17 10:09 Dose: 5 mg Aspirin (Ecotrin) 81 mg PO DAILY [facility] Last Admin: 08/15/17 10:10 Dose: 81 mg Enalapril Maleate (Vasotec) 20 mg PO DAILY [facility] Last Admin: 08/15/17 10:09 Dose: 20 mg Enoxaparin Sodium (Lovenox) 40 mg SC DAILY [facility] Last Admin: 08/14/17 09:59 Dose: 40 mg Furosemide (Lasix) 40 mg IVP BID [facility] Last Admin: 08/15/17 10:11 Dose: 40 mg Guaifenesin/Dextromethorphan (Robitussin Dm) 10 ml PO TID PRN PRN Reason: Cough and congestion Last Admin: 08/15/17 10:11 Dose: 10 ml Azithromycin 500 mg/ Sodium (Chloride) 250 mls @ 250 mls/hr IVPB DAILY [facility] Last Admin: 08/12/17 10:01 Dose: 250 mls/hr Ceftriaxone Sodium 1 gm/ (Sodium Chloride) 100 mls @ 100 mls/hr IVPB DAILY [facility] Last Admin: 08/15/17 10:11 Dose: 100 mls/hr Methylprednisolone (Solu-Medrol) 40 mg IVP Q12H [facility] Last Admin: 08/15/17 10:10 Dose: 40 mg Montelukast Sodium (Singulair) 10 mg PO HS [facility] Last Admin: 08/14/17 21:12 Dose: 10 mg Nicotine (Nicoderm Cq) 1 patch TD DAILY [facility] Last Admin: 08/15/17 10:11 Dose: 1 patch Pantoprazole Sodium (Protonix Ec Tab) 40 mg PO DAILY [facility] Last Admin: 08/15/17 10:09 Dose: 40 mg Rosuvastatin Calcium (Crestor) 5 mg PO HS [facility] Last Admin: 08/14/17 21:12 Dose: 5 mg Fluticasone/Salmeterol (Advair Diskus 250/50) 1 puff INH RQ12 [facility] Last Admin: 08/15/17 07:09 Dose: Not Given Spironolactone (Aldactone) 25 mg PO DAILY [facility] Last Admin: 08/15/17 10:09 Dose: 25 mg - Labs Labs: 08/15/17 08:26 08/15/17 08:26 PT 10.8 SECONDS (9.7-12.2) 08/11/17 16:39 INR 1.0 08/11/17 16:39 APTT 29 SECONDS (21-34) 08/11/17 16:39 - Head Exam Head Exam: ATRAUMATIC, NORMOCEPHALIC - ENT Exam ENT Exam: Mucous Membranes Moist - Neck Exam Neck Exam: Normal Inspection - Respiratory Exam Respiratory Exam: Rales, Rhonchi - Cardiovascular Exam Cardiovascular Exam: REGULAR RHYTHM - GI/Abdominal Exam GI & Abdominal Exam: Soft, Normal Bowel Sounds - Extremities Exam Extremities Exam: Full ROM, Normal Inspection Assessment and Plan (1) CHF (congestive heart failure) Status: Acute (2) COPD (chronic obstructive pulmonary disease) Assessment & Plan: taper steroids Switch to p.o. prednisone Continue nebulizer treatment and antibiotics For AICD today Status: Acute (3) Pneumonia Status: Acute
--- NOTE | 2017-08-16 00:31 | CARD ---
APPROVED REPORT EXAM: Two-dimensional and M-mode echocardiogram with Doppler and color Doppler. Other Information Quality : GoodRhythm : INDICATION LV Function:SystolicDiastolic AICD EVALUATION 2D DIMENSIONS IVSd1.2 (0.7-1.1cm)LVDd6.1 (3.9-5.9cm) PWd1.1 (0.7-1.1cm)LVDs5.1 (2.5-4.0cm) FS (%) 16.1 %LVEF (%)33.2 (>50%) M-Mode DIMENSIONS RVDd1.21 (2.1-3.2cm)Left Atrium (MM)3.95 (2.5-4.0cm) IVSd0.98 (0.7-1.1cm)Aortic Root4.64 (2.2-3.7cm) LVDd6.95 (4.0-5.6cm)Aortic Cusp Exc.1.92 (1.5-2.0cm) PWd0.98 (0.7-1.1cm)FS (%) 24 % LVDs5.27 (2.0-3.8cm) Aortic Valve AI P 1/2 [id number] Mitral Valve MV E Zqlcbbno98.3cm/sMV A Zwckbqzm79.4cm/sE/A ratio1.7 TDI E/Lateral E'0.0E/Medial E'0.0 Tricuspid Valve TR Peak [id number]/sTR Peak Gr.[id number] LEFT VENTRICLE The Left Ventricle is severely dilated. There is mild concentric left ventricular hypertrophy. LVEF 30-35% The systolic function is severely impaired. Increased EPSS Elevated LVEDP There is global hypokinesis of the left ventricle. Transmitral Doppler flow pattern is Grade II-pseudonormal filling dynamics. No left ventricle thrombus noted on this study. There is no ventricular septal defect visualized. There is no left ventricular aneurysm. There is no mass noted in the left ventricle. RIGHT VENTRICLE The right ventricle is normal size. There is normal right ventricular wall thickness. The right ventricular systolic function is normal. ATRIA The left atrium is severely dilated. The right atrium is moderately dilated. The interatrial septum is intact with no evidence for an atrial septal defect. AORTIC VALVE The aortic valve is mildly sclerotic. The aortic valve is tri-cuspid. There is moderate aortic regurgitation by PHT measurement, however the LVEDP is elevated which may lead to underestimated severity. There is no aortic valvular stenosis. There is no aortic valvular vegetation. MITRAL VALVE Mitral annular calcification is mild. The MV annulous is dilated. There is fine diastolic fluttering of the mitral valve consistent with aortic regurgitation. There is no evidence of mitral valve prolapse. There is no mitral valve stenosis. Mitral regurgitation is mild. TRICUSPID VALVE The tricuspid valve is normal in structure. There is trace to mild tricuspid regurgitation. There is no tricuspid valve prolapse or vegetation. There is no tricuspid valve stenosis. PULMONIC VALVE The pulmonary valve is normal in structure. There is no pulmonic valvular regurgitation. There is no pulmonic valvular stenosis. GREAT VESSELS The aortic root is severely enlarged. IVC is underfilled with complete collapse with respiration. <Conclusion> LVEF 30-35% The Left Ventricle is severely dilated. There is mild concentric left ventricular hypertrophy. Transmitral Doppler flow pattern is Grade II-pseudonormal filling dynamics. Increased EPSS Elevated LVEDP The left atrium is severely dilated. The right atrium is moderately dilated. There is moderate aortic regurgitation by PHT measurement, however the LVEDP is elevated which may lead to underestimated severity. There is fine diastolic fluttering of the mitral valve consistent with aortic regurgitation. Mitral regurgitation is mild. There is trace to mild tricuspid regurgitation. IVC is underfilled with complete collapse with respiration. The MV annulous is dilated.
--- NOTE | 2017-08-20 00:52 | CARD ---
APPROVED REPORT EKG Measurement Heart [id number] <Conclusion> Normal sinus rhythm Possible Left atrial enlargement Left ventricular hypertrophy Nonspecific T wave abnormality Prolonged QT Abnormal ECG
== END 2017-08-15 15:15 | disposition designated cancer center or children's hospital (05) | DRG 291 ==
LOC: C.ER 15:50 → C.5S 17:17
PROVIDERS: ADMIT Internal Medicine Nephrology; ATTEND Internal Medicine Nephrology
PROC: 3E0234Z Introduction of Serum, Toxoid and Vaccine into Muscle, Percutaneous Approach (ICD-10-PCS; principal; 2017-08-14)
DX: I11.0 Hypertensive heart disease with heart failure (principal); J18.9 Pneumonia, unspecified organism; I45.81 Long QT syndrome; J44.0 Chronic obstructive pulmonary disease with (acute) lower respiratory infection; F17.200 Nicotine dependence, unspecified, uncomplicated; H54.61 Unqualified visual loss, right eye, normal vision left eye; I50.23 Acute on chronic systolic (congestive) heart failure; Z91.19 Patient's noncompliance with other medical treatment and regimen; Z23 Encounter for immunization; F14.10 Cocaine abuse, uncomplicated; F12.10 Cannabis abuse, uncomplicated

== ENCOUNTER 2017-09-08 10:28 | Inpatient (IN) | payer MEDICAID, MEDICARE ==
[2017-09-08 10:28] VITALS: BMI 23.7
--- NOTE | 2017-09-08 11:09 | C.PDOC ---
History Of Present Illness 62 year old male, with past medical history of COPD, osteoarthritis, CHF, presents to ED for evaluation of recurrent shortness of breath for the past several days. Pt has history of multiple prior admissions for similar s/p AICD placement. Pt states he is not compliant with his meds since discharge, states "I just don't want to take them". Denies fever, or swelling. Pt also complaints of headache for the last 2 days. Notes taking Tylenol at 0100 without relief. Denies nausea or vomiting. recur sob X SEV DAYS. MULT PRIOR ADMISSION FOR SAME S/P AICD PLACEMENT. PS NON COMPLIANT W MEDS SINCE DC 'i JUST DONT WANT TO TAKE THEM". NO FEVER, SWELLING. ALSO CO DONOVAN X 2 DAYS. NO RELIEF W TYLENOL @ 0100. NO NV. COPD, osteoarthritis, congestive heart failurE EXAM NONTOXIC HEENT NEG LUNGS CTA B/L NO W/R/R CV RRR NEURO NO FOCAL DEF NO EDEMA Time Seen by Provider: 09/08/17 10:56 Chief Complaint (Nursing): Shortness Of Breath History Per: Patient History/Exam Limitations: no limitations Onset/Duration Of Symptoms: Days Current Symptoms Are (Timing): Still Present Current Respiratory Medications: See Home Med List Associated Symptoms: denies: Fever, Chills, Sweating, Chest Pain, Bloody Cough, Heart Racing, Leg/Calf Pain, Ankle/Leg Swelling, Dizziness, Light-headedness, Anxiety, Tingling In Hands Or Face, Musle Spasms In Hands Or Feet Recent travel outside of the [place]: No Additional History Per: Patient Past Medical History Reviewed: Historical Data, Nursing Documentation, Vital Signs Vital Signs: Last Vital Signs Temp 97.4 F L 09/08/17 14:02 Pulse 94 H 09/08/17 14:30 Resp 20 09/08/17 14:02 BP 159/85 H 09/08/17 14:02 Pulse Ox 98 09/08/17 16:21 - Medical History PMH: Anxiety, CHF, COPD, Pneumonia Denies: Chronic Kidney Disease - [facility] Procedures INTRODUCTION OF SERUM/TOX/VACCINE INTO MUSCLE, PERC APPROACH (08/11/17) Family History: States: Unknown Family Hx - Social History Hx Alcohol Use: Yes (3 shots of cognac everyday) Hx Substance Use: Yes (marijuana daily) - Immunization History Hx Tetanus Toxoid Vaccination: No Hx Influenza Vaccination: No Hx Pneumococcal Vaccination: No Review Of Systems Except As Marked, All Systems Reviewed And Found Negative. Constitutional: Negative for: Fever, Chills Cardiovascular: Negative for: Chest Pain, Palpitations, Edema, Light Headedness Respiratory: Positive for: Shortness of Breath. Negative for: Cough Gastrointestinal: Negative for: Nausea, Vomiting, Abdominal Pain Neurological: Positive for: Headache. Negative for: Weakness, Numbness, Dizziness Physical Exam - Physical Exam Appears: Non-toxic, No Acute Distress Skin: Normal Color, Warm, Dry Head: Atraumatic, Normacephalic Eye(s): bilateral: Normal Inspection Ear(s): Bilateral: Normal Nose: Normal Oral Mucosa: Moist Tongue: Normal Appearing Lips: Normal Appearing Throat: Normal, No Erythema, No Exudate Chest: Symmetrical Cardiovascular: Rhythm Regular, No Murmur Respiratory: Normal Breath Sounds, No Rales, No Rhonchi, No Wheezing Gastrointestinal/Abdominal: Soft, No Tenderness Extremity: Normal ROM, No Pedal Edema Neurological/Psych: Oriented x3, Normal Speech, Normal Cognition, No Other (no focal deficits) ED Course And Treatment - Laboratory Results Result Diagrams: 09/08/17 11:48 09/08/17 11:48 ECG: Interpreted By Ct ECG Rhythm: Sinus Rhythm ECG Interpretation: Normal Rate From EC (bpm) O2 Sat by Pulse Oximetry: 98 (RA) Pulse Ox Interpretation: Normal - CT Scan/US CT head Other Rad Studies (CT/US): Read By Radiologist, Radiology Report Reviewed CT/US Interpretation: Accession No. : [id number]. Patient Name / ID : March A / [id number]. Exam Date : 09/08/2017 12:05:02 ( Approved ). Study Comment : Sex / Age : M / 62Y. Creator : Marbella Griggs MD. Dictator : Marbella Griggs MD. Laboratory Specialist : Ethical Hacker : Marbella Griggs MD. Approver2 : Report Date : 09/08/2017 12:20:31. My Comment : . PROCEDURE: CT HEAD WITHOUT CONTRAST. HISTORY: DONOVAN HTN RO BLEED. COMPARISON: None available. TECHNIQUE: Axial computed tomography images were obtained through the head/brain without intravenous contrast. Radiation dose: Total exam DLP = 1800.59 mGy-cm. This CT exam was performed using one or more of the following dose reduction techniques: Automated exposure control, adjustment of the mA and/ or kV according to patient size, and/or use of iterative reconstruction technique. FINDINGS: HEMORRHAGE: No evidence of acute intracranial hemorrhage or intracranial hematoma. . BRAIN: No mass effect or edema. Mild atrophy is noted. Mild white matter changes are also suggestive but nonspecific for chronic microvascular ischemic disease. VENTRICLES: Unremarkable. No hydrocephalus. CALVARIUM: Unremarkable. PARANASAL SINUSES: Unremarkable as visualized. No significant inflammatory changes. MASTOID AIR CELLS: Unremarkable as visualized. No inflammatory changes. OTHER FINDINGS: The right globe is small in size contains calcification which could be due to old hemorrhage. IMPRESSION: No evidence of acute intracranial hemorrhage intracranial collection mass effect or midline shift. Mild atrophy and mild white matter changes likely represent chronic microvascular ischemic disease. Progress - Re-Evaluation Re-evaluation Note: 09/08/17 12:34 EXAM IMPROVE. D/W DR Mann PHELPS (ADMITTED PT LAST TIME), WILL ADMIT - Data Reviewed Data Reviewed: Lab, Diagnostic imaging, EKG, Old records Medical Decision Making Medical Decision Making: Plan: * Blood work * Head CT * CXR * EKG * Lasix, Vasotec * Reassess Disposition Counseled Patient/Family Regarding: Studies Performed, Diagnosis - Disposition Disposition: HOSPITALIZED Disposition Time: 12:39 Condition: STABLE - POA Present On Arrival: None - Clinical Impression Clinical Impression: Uncontrolled hypertension, Headache, CHF exacerbation - Scribe Statement The provider has reviewed the documentation as recorded by the Scribanthony Phelps All medical record entries made by the Scribe were at my direction and personally dictated by me. I have reviewed the chart and agree that the record accurately reflects my personal performance of the history, physical exam, medical decision making, and the department course for this patient. I have also personally directed, reviewed, and agree with the discharge instructions and disposition. Decision To Admit - Pt Status Changed To: Hospital Disposition Of: Observation - . Bed Request Type: Telemetry Admitting Physician: Yo Phelps Patient Diagnosis: Uncontrolled hypertension, Headache, CHF exacerbation
[2017-09-08] MEDS ORDERED: Enalaprilat 2.5 MG/2 ML IV ONE (11:42)
[2017-09-08] MEDS ORDERED: Enalaprilat 2.5 MG/2 ML ONE (11:51)
[2017-09-08 11:54] LABS: BASO # 0.1 K/uL (0.0-0.2); BASO % 0.9 % (0.0-2.0); EOS # 0.1 K/uL (0.0-0.7); EOS % 1.3 % (0.0-4.0); HEMOGLOBIN 14.8 g/dL (12.0-18.0); LYMPH # 1.6 K/uL (1.0-4.3); LYMPH % 20.3 % (20.0-40.0); MEAN CELL VOLUME 94.8 fL (80.0-94.0); MEAN CORPUSCULAR HEMOGLOBIN 32.2 pg (27.0-31.0); MEAN PLATELET VOLUME 8.6 fL (7.2-11.7); MONO # 0.8 K/uL (0.0-0.8); MONO % 9.3 % (0.0-10.0); NEUT # 5.5 K/uL (1.8-7.0); NEUT % 68.2 % (50.0-75.0); NRBC % 0.1 % (0.0-2.0); RBC 4.6 Mil/uL (4.40-5.90); RED CELL DISTRIBUTION WIDTH 16.3 % (11.5-14.5)
[2017-09-08 12:04] LABS: INR 0.9; PROTHROMBIN TIME 10.5 SECONDS (9.7-12.2)
--- NOTE | 2017-09-08 12:21 | CT ---
PROCEDURE: CT HEAD WITHOUT CONTRAST. HISTORY: DONOVAN HTN RO BLEED COMPARISON: None available. TECHNIQUE: Axial computed tomography images were obtained through the head/brain without intravenous contrast. Radiation dose: Total exam DLP = 1800.59 mGy-cm. This CT exam was performed using one or more of the following dose reduction techniques: Automated exposure control, adjustment of the mA and/or kV according to patient size, and/or use of iterative reconstruction technique. FINDINGS: HEMORRHAGE: No evidence of acute intracranial hemorrhage or intracranial hematoma. . BRAIN: No mass effect or edema. Mild atrophy is noted. Mild white matter changes are also suggestive but nonspecific for chronic microvascular ischemic disease. VENTRICLES: Unremarkable. No hydrocephalus. CALVARIUM: Unremarkable. PARANASAL SINUSES: Unremarkable as visualized. No significant inflammatory changes. MASTOID AIR CELLS: Unremarkable as visualized. No inflammatory changes. OTHER FINDINGS: The right globe is small in size contains calcification which could be due to old hemorrhage. IMPRESSION: No evidence of acute intracranial hemorrhage intracranial collection mass effect or midline shift. Mild atrophy and mild white matter changes likely represent chronic microvascular ischemic disease.
[2017-09-08 12:24] LABS: B-TYPE NATRIURETIC PEPTIDE 14700 pg/mL (0-900)
[2017-09-08 12:46] LABS: ALB/GLOB RATIO 1.3 (1.0-2.1); ALT/SGPT 32 U/L (21-72); AST/SGOT 37 U/L (17-59); BLOOD UREA NITROGEN 12 mg/dL (9-20); CALCIUM 8.9 mg/dl (8.6-10.4); GFR AFRICAN-AMERICAN > 60; GFR NON-AFRICAN AMERICAN > 60
[2017-09-08 14:02] VITALS: RESP 20
--- NOTE | 2017-09-08 14:22 | RAD ---
PROCEDURE: CHEST RADIOGRAPH, 1 VIEW HISTORY: SOB COMPARISON: Comparison is made to the previous exam dated 08/11/2017 FINDINGS: LUNGS: Interval worsening of heterogeneous opacity at the mid and lower lungs likely represent moderate pulmonary vascular congestion. PLEURA: No significant pleural effusion noted. CARDIOVASCULAR: The cardiac silhouette is mildly enlarged. Left-sided single wire pacer is new since the previous study. OSSEOUS STRUCTURES: No significant abnormalities. VISUALIZED UPPER ABDOMEN: Normal. OTHER FINDINGS: None. IMPRESSION: Moderate pulmonary vascular congestion.
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
[2017-09-08] MEDS: Albuterol-Ipratrop 3 mg / 0.5 (3 ml) UD INH SCH (20:23)
[2017-09-08] MEDS: Fluticasone-Salmeterol 250-50mcg Diskus IH SCH (20:24)
[2017-09-08] MEDS: oxyCODONE 30 mg Immediate Release Tab PO SCH (22:00)
[2017-09-09] MEDS: Albuterol-Ipratrop 3 mg / 0.5 (3 ml) UD INH SCH ×4 (01:35→19:45)
[2017-09-09] MEDS: Fluticasone-Salmeterol 250-50mcg Diskus IH SCH ×2 (07:20→19:45)
[2017-09-09] MEDS ORDERED: Tiotropium 18 mcg Cap For Inhalation IH SCH (08:00)
[2017-09-09] MEDS: Enoxaparin 40 mg Syringe SC SCH (10:23)
[2017-09-09] MEDS: Pantoprazole 40 mg EC Tab PO SCH (10:23)
[2017-09-09] MEDS: oxyCODONE 30 mg Immediate Release Tab PO SCH ×2 (10:31→21:38)
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
--- NOTE | 2017-09-09 15:38 | CP.PCM.PN ---
Subjective - Date & Time of Evaluation Date of Evaluation: 09/09/17 Time of Evaluation: 14:20 - Subjective Subjective: clinically same Objective - Vital Signs/Intake and Output Vital Signs (last 24 hours): Temp Pulse Resp BP Pulse Ox 98.4 F 86 20 120/76 93 L 09/09/17 08:38 09/09/17 12:16 09/09/17 08:38 09/09/17 10:23 09/09/17 08:38 Intake and Output: 09/09/17 09/09/17 06:59 18:59 Intake Total 120 Balance 120 - Medications Medications: Current Medications Albuterol/Ipratropium (Duoneb 3 Mg/0.5 Mg (3 Ml) Ud) 3 ml INH RQ6 [facility] Last Admin: 09/09/17 13:21 Dose: 3 ml Alprazolam (Xanax) 2 mg PO BID PRN PRN Reason: Anxiety Aspirin (Aspirin Chewable) 81 mg PO DAILY [facility] Last Admin: 09/09/17 10:55 Dose: 81 mg Digoxin (Lanoxin) 0.125 mg PO DAILY@1800 [facility] Enalapril Maleate (Vasotec) 20 mg PO DAILY [facility] Last Admin: 09/09/17 10:22 Dose: 20 mg Enoxaparin Sodium (Lovenox) 40 mg SC DAILY [facility] Last Admin: 09/09/17 10:23 Dose: 40 mg Famotidine (Pepcid) 20 mg PO BID [facility] Last Admin: 09/09/17 10:23 Dose: 20 mg Furosemide (Lasix) 40 mg IVP DAILY [facility] Last Admin: 09/09/17 10:23 Dose: 40 mg Nicotine (Nicoderm Cq) 1 patch TD DAILY [facility] Last Admin: 09/09/17 13:51 Dose: 1 patch Oxycodone HCl (Oxycodone Immediate Release Tab) 30 mg PO Q12 [facility] Last Admin: 09/09/17 10:31 Dose: 30 mg Pantoprazole Sodium (Protonix Ec Tab) 40 mg PO DAILY [facility] Last Admin: 09/09/17 10:23 Dose: 40 mg Rosuvastatin Calcium (Crestor) 5 mg PO HS [facility] Last Admin: 09/08/17 22:36 Dose: 5 mg Fluticasone/Salmeterol (Advair Diskus 250/50) 1 puff IH RQ12 [facility] Last Admin: 09/09/17 07:20 Dose: 1 puff Spironolactone (Aldactone) 25 mg PO DAILY [facility] Last Admin: 09/09/17 10:22 Dose: 25 mg Tiotropium [place] (Spiriva) 18 mcg IH RQD [facility] - Labs Labs: 09/08/17 11:48 09/08/17 11:48 PT 10.5 SECONDS (9.7-12.2) 09/08/17 11:48 INR 0.9 09/08/17 11:48 APTT 36 SECONDS (21-34) H 09/08/17 11:48 - Constitutional Appears: Well - Head Exam Head Exam: ATRAUMATIC, NORMAL INSPECTION, NORMOCEPHALIC - Eye Exam Eye Exam: EOMI, Normal appearance, PERRL Pupil Exam: NORMAL ACCOMODATION, PERRL - ENT Exam ENT Exam: Mucous Membranes Moist, Normal Exam - Neck Exam Neck Exam: Full ROM, Normal Inspection. absent: Lymphadenopathy - Respiratory Exam Respiratory Exam: Decreased Breath Sounds - Cardiovascular Exam Cardiovascular Exam: REGULAR RHYTHM, +S1, +S2 - GI/Abdominal Exam GI & Abdominal Exam: Soft, Diminished Bowel Sounds - Rectal Exam Rectal Exam: Deferred
[2017-09-09] MEDS: Digoxin 125 mcg (0.125 mg) Tab PO SCH (18:04)
[2017-09-10] MEDS: Albuterol-Ipratrop 3 mg / 0.5 (3 ml) UD INH SCH ×4 (01:43→20:37)
[2017-09-10] MEDS: Fluticasone-Salmeterol 250-50mcg Diskus IH SCH ×2 (07:00→20:37)
--- NOTE | 2017-09-10 10:10 | CP.PCM.PN ---
Subjective - Date & Time of Evaluation Date of Evaluation: 09/10/17 Time of Evaluation: 10:09 - Subjective Subjective: PGY2 medicine progress note for Dr. Roca's service Patient seen and examined. Patient is a 62 year old male with PMH HTN, chronic systolic dysfunction s/p AICD early 08/2017 who presented on 09/08/17 with complaint of worsening dyspnea. Patient admits to medication non-compliance. Per patient, he takes Breo and albuterol inhaler daily. Patient states he was taking Norvasc and Crestor intermittently but denies taking aldactone, aspirin, enalapril, lasix. Patient has had multiple admission in the past for similar complaints of dyspnea. Patient states he was seeing Dr. Johnathon Velázquez in past for primary physician but has not been to see him in quite some time. Patient also admits to past use of cocaine and for that reason beta blockers have been avoided. Patient reports some improvement in symptoms since admission but admits he still feels mildly dyspneic. Patient denies shocks from AICD. Objective - Vital Signs/Intake and Output Vital Signs (last 24 hours): Temp Pulse Resp BP Pulse Ox 97.3 F L 89 20 117/78 99 09/10/17 07:00 09/10/17 07:00 09/10/17 07:00 09/10/17 07:00 09/10/17 07:00 Intake and Output: 09/10/17 09/10/17 06:59 18:59 Intake Total 240 Balance 240 - Medications Medications: Current Medications Albuterol/Ipratropium (Duoneb 3 Mg/0.5 Mg (3 Ml) Ud) 3 ml INH RQ6 [facility] Last Admin: 09/10/17 07:00 Dose: 3 ml Alprazolam (Xanax) 2 mg PO BID PRN PRN Reason: Anxiety Aspirin (Aspirin Chewable) 81 mg PO DAILY [facility] Last Admin: 09/09/17 10:55 Dose: 81 mg Digoxin (Lanoxin) 0.125 mg PO DAILY@1800 [facility] Last Admin: 09/09/17 18:04 Dose: 0.125 mg Enalapril Maleate (Vasotec) 20 mg PO DAILY [facility] Last Admin: 09/09/17 10:22 Dose: 20 mg Enoxaparin Sodium (Lovenox) 40 mg SC DAILY [facility] Last Admin: 09/09/17 10:23 Dose: 40 mg Famotidine (Pepcid) 20 mg PO BID [facility] Last Admin: 09/09/17 18:05 Dose: 20 mg Furosemide (Lasix) 40 mg IVP DAILY [facility] Last Admin: 09/09/17 10:23 Dose: 40 mg Nicotine (Nicoderm Cq) 1 patch TD DAILY [facility] Last Admin: 09/09/17 13:51 Dose: 1 patch Oxycodone HCl (Oxycodone Immediate Release Tab) 30 mg PO Q12 [facility] Last Admin: 09/09/17 21:38 Dose: Not Given Pantoprazole Sodium (Protonix Ec Tab) 40 mg PO DAILY [facility] Last Admin: 09/09/17 10:23 Dose: 40 mg Rosuvastatin Calcium (Crestor) 5 mg PO HS [facility] Last Admin: 09/09/17 21:37 Dose: 5 mg Fluticasone/Salmeterol (Advair Diskus 250/50) 1 puff IH RQ12 [facility] Last Admin: 09/10/17 07:00 Dose: 1 puff Spironolactone (Aldactone) 25 mg PO DAILY [facility] Last Admin: 09/09/17 10:22 Dose: 25 mg Tiotropium [place] (Spiriva) 18 mcg IH RQD [facility] - Labs Labs: 09/08/17 11:48 09/08/17 11:48 PT 10.5 SECONDS (9.7-12.2) 09/08/17 11:48 INR 0.9 09/08/17 11:48 APTT 36 SECONDS (21-34) H 09/08/17 11:48 - Constitutional Appears: No Acute Distress - Head Exam Head Exam: ATRAUMATIC, NORMOCEPHALIC - Eye Exam Eye Exam: EOMI Additional comments: right eye clouded - ENT Exam ENT Exam: Mucous Membranes Moist - Respiratory Exam Respiratory Exam: Decreased Breath Sounds, NORMAL BREATHING PATTERN. absent: Rales, Rhonchi, Wheezes - Cardiovascular Exam Cardiovascular Exam: +S1, +S2 Additional comments: left chest AICD - GI/Abdominal Exam GI & Abdominal Exam: Soft, Normal Bowel Sounds. absent: Tenderness - Extremities Exam Extremities Exam: Normal Inspection. absent: Pedal Edema - Neurological Exam Neurological Exam: Alert, Awake - Psychiatric Exam Psychiatric exam: Normal Affect - Skin Skin Exam: Warm Assessment and Plan - Assessment and Plan (Free Text) Assessment: Acute on Chronic Systolic CHF Patient with history medication non-compliance AICD recently placed in early 08/2017 at [facility] CXR 09/08/17- mild pulmonary vascular congestion mid/ lower lungs Last echo: 08/12/17: LVEF 30-35%, LV severely dilated, mild concentric LV hypertrophy, elevated LVEDP, LA severely dilated, RA moderate dilated, moderate aortic regurgitation by PHT measurement, however LVEDP is elevated which may lead to underestimated severity. Fine diastolic fluttering of mitral valve consistent with aortic regurgitation. Mitral regurgitation is mild. Dr. Saini consulted, help appreciated Continue medication regimen: aspirin 81mg daily, enalapril 20mg daily, lasix 40mg IV daily, aldactone 25mg daily, digoxin 0.125mg daily dig level < 0.4 on admission BNP 09/08/17: 14,700 HTN BP on admission 09/08/17: 168/102 patient non-compliant with medication BP currently well-controlled continue enalapril 20mg daily, lasix 40mg IV daily, aldactone 25mg daily Hx COPD continue duoneb q6 continue Advair 250/50 Q12 holding Spiriva as patient receiving duonebs HLD continue Crestor 5mg HS Substance use history of cocaine use, UDS positive 08/12/17, avoid beta blockers tobacco use- Patient smokes 1/4 to 1/2 PPD x 30-40 years- continue Nicotine patch while inpatient Prophylaxis lovenox 40mg SC daily protonix 40mg PO Daily patient counseled on medication compliance and cessation of smoking and cocaine use All medical management as per Dr. Roca
[2017-09-10] MEDS: Enoxaparin 40 mg Syringe SC SCH (10:53)
[2017-09-10] MEDS: Pantoprazole 40 mg EC Tab PO SCH (10:53)
[2017-09-10] MEDS: oxyCODONE 30 mg Immediate Release Tab PO SCH ×2 (10:54→21:40)
--- NOTE | 2017-09-10 11:37 | CP.PCM.PN ---
Subjective - Date & Time of Evaluation Date of Evaluation: 09/10/17 Time of Evaluation: 13:40 - Subjective Subjective: clinically same Objective - Vital Signs/Intake and Output Vital Signs (last 24 hours): Temp Pulse Resp BP Pulse Ox 97.3 F L 89 20 115/74 99 09/10/17 07:00 09/10/17 07:00 09/10/17 07:00 09/10/17 10:53 09/10/17 07:00 Intake and Output: 09/10/17 09/10/17 06:59 18:59 Intake Total 240 Balance 240 - Medications Medications: Current Medications Albuterol/Ipratropium (Duoneb 3 Mg/0.5 Mg (3 Ml) Ud) 3 ml INH RQ6 [facility] Last Admin: 09/10/17 07:00 Dose: 3 ml Alprazolam (Xanax) 2 mg PO BID PRN PRN Reason: Anxiety Aspirin (Aspirin Chewable) 81 mg PO DAILY [facility] Last Admin: 09/10/17 10:52 Dose: 81 mg Digoxin (Lanoxin) 0.125 mg PO DAILY@1800 [facility] Last Admin: 09/09/17 18:04 Dose: 0.125 mg Enalapril Maleate (Vasotec) 20 mg PO DAILY [facility] Last Admin: 09/10/17 10:52 Dose: 20 mg Enoxaparin Sodium (Lovenox) 40 mg SC DAILY [facility] Last Admin: 09/10/17 10:53 Dose: 40 mg Famotidine (Pepcid) 20 mg PO BID [facility] Last Admin: 09/10/17 10:53 Dose: 20 mg Furosemide (Lasix) 40 mg IVP DAILY [facility] Last Admin: 09/10/17 10:53 Dose: 40 mg Nicotine (Nicoderm Cq) 1 patch TD DAILY [facility] Last Admin: 09/09/17 13:51 Dose: 1 patch Oxycodone HCl (Oxycodone Immediate Release Tab) 30 mg PO Q12 [facility] Last Admin: 09/10/17 10:54 Dose: 30 mg Pantoprazole Sodium (Protonix Ec Tab) 40 mg PO DAILY [facility] Last Admin: 09/10/17 10:53 Dose: 40 mg Rosuvastatin Calcium (Crestor) 5 mg PO HS [facility] Last Admin: 09/09/17 21:37 Dose: 5 mg Fluticasone/Salmeterol (Advair Diskus 250/50) 1 puff IH RQ12 [facility] Last Admin: 09/10/17 07:00 Dose: 1 puff Spironolactone (Aldactone) 25 mg PO DAILY [facility] Last Admin: 09/10/17 10:52 Dose: 25 mg Tiotropium [place] (Spiriva) 18 mcg IH RQD [facility] - Labs Labs: 09/08/17 11:48 09/08/17 11:48 PT 10.5 SECONDS (9.7-12.2) 09/08/17 11:48 INR 0.9 09/08/17 11:48 APTT 36 SECONDS (21-34) H 09/08/17 11:48 - Constitutional Appears: Well - Head Exam Head Exam: ATRAUMATIC, NORMAL INSPECTION, NORMOCEPHALIC - Eye Exam Eye Exam: EOMI, Normal appearance, PERRL Pupil Exam: NORMAL ACCOMODATION, PERRL - ENT Exam ENT Exam: Mucous Membranes Moist, Normal Exam - Neck Exam Neck Exam: Full ROM, Normal Inspection. absent: Lymphadenopathy - Respiratory Exam Respiratory Exam: Decreased Breath Sounds - Cardiovascular Exam Cardiovascular Exam: REGULAR RHYTHM, +S1, +S2 - GI/Abdominal Exam GI & Abdominal Exam: Soft, Diminished Bowel Sounds - Rectal Exam Rectal Exam: Deferred
[2017-09-10 12:10] LABS: BASO % 0.4 % (0.0-2.0); EOS # 0.1 K/uL (0.0-0.7); EOS % 1.4 % (0.0-4.0); HEMOGLOBIN 14.2 g/dL (12.0-18.0); LYMPH # 1.4 K/uL (1.0-4.3); LYMPH % 19.2 % (20.0-40.0); MEAN CELL VOLUME 94.6 fL (80.0-94.0); MEAN CORPUSCULAR HEMOGLOBIN 31.8 pg (27.0-31.0); MEAN CORPUSCULAR HGB CONC 33.7 g/dL (33.0-37.0); MEAN PLATELET VOLUME 8.8 fL (7.2-11.7); MONO # 0.8 K/uL (0.0-0.8); MONO % 11.2 % (0.0-10.0); NEUT # 4.9 K/uL (1.8-7.0); NEUT % 67.8 % (50.0-75.0); RBC 4.47 Mil/uL (4.40-5.90); RED CELL DISTRIBUTION WIDTH 16.1 % (11.5-14.5); WHITE BLOOD COUNT 7.3 K/uL (4.8-10.8)
[2017-09-10 13:00] LABS: ALB/GLOB RATIO 1.3 (1.0-2.1); ALBUMIN 3.3 g/dL (3.5-5.0); ALT/SGPT 26 U/L (21-72); AST/SGOT 29 U/L (17-59); BLOOD UREA NITROGEN 17 mg/dL (9-20); CALCIUM 8.2 mg/dl (8.6-10.4); GFR AFRICAN-AMERICAN > 60; GFR NON-AFRICAN AMERICAN > 60
--- NOTE | 2017-09-10 13:18 | CARD ---
APPROVED REPORT EKG Measurement Heart [id number] <Conclusion> Normal sinus rhythm Possible Left atrial enlargement Left ventricular hypertrophy Prolonged QT Abnormal ECG
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
[2017-09-10] MEDS: Digoxin 125 mcg (0.125 mg) Tab PO SCH (17:39)
[2017-09-10] MEDS ORDERED: Pneumococcal 23-Valent Vaccine IM ONE (18:03)
[2017-09-11] MEDS: Albuterol-Ipratrop 3 mg / 0.5 (3 ml) UD INH SCH ×4 (02:20→20:12)
[2017-09-11 06:54] LABS: BASO % 0.6 % (0.0-2.0); EOS # 0.1 K/uL (0.0-0.7); EOS % 1.8 % (0.0-4.0); HEMOGLOBIN 14.3 g/dL (12.0-18.0); LYMPH # 1.4 K/uL (1.0-4.3); LYMPH % 20.1 % (20.0-40.0); MEAN CELL VOLUME 95.3 fL (80.0-94.0); MEAN CORPUSCULAR HEMOGLOBIN 32.6 pg (27.0-31.0); MEAN CORPUSCULAR HGB CONC 34.2 g/dL (33.0-37.0); MEAN PLATELET VOLUME 8.3 fL (7.2-11.7); MONO # 0.9 K/uL (0.0-0.8); NEUT # 4.7 K/uL (1.8-7.0); NEUT % 65.5 % (50.0-75.0); NRBC % 0.1 % (0.0-2.0); RBC 4.38 Mil/uL (4.40-5.90); RED CELL DISTRIBUTION WIDTH 16.3 % (11.5-14.5); WHITE BLOOD COUNT 7.1 K/uL (4.8-10.8)
[2017-09-11 07:11] LABS: ALB/GLOB RATIO 1.3 (1.0-2.1); ALBUMIN 3.6 g/dL (3.5-5.0); ALT/SGPT 25 U/L (21-72); AST/SGOT 32 U/L (17-59); BLOOD UREA NITROGEN 20 mg/dL (9-20); CALCIUM 8.6 mg/dl (8.6-10.4); GFR AFRICAN-AMERICAN > 60; GFR NON-AFRICAN AMERICAN 52
[2017-09-11] MEDS: Fluticasone-Salmeterol 250-50mcg Diskus IH SCH ×2 (07:30→20:12)
[2017-09-11 08:59] VITALS: O2SAT 97
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
[2017-09-11] MEDS: Pantoprazole 40 mg EC Tab PO SCH (09:42)
[2017-09-11] MEDS: Enoxaparin 40 mg Syringe SC SCH (09:43)
[2017-09-11] MEDS: oxyCODONE 30 mg Immediate Release Tab PO SCH (09:43)
[2017-09-11] MEDS ORDERED: Pneumococcal 23-Valent Vaccine IM ONE (10:00)
--- NOTE | 2017-09-11 12:11 | CP.PCM.PN ---
Subjective - Date & Time of Evaluation Date of Evaluation: 09/11/17 Time of Evaluation: 12:11 Objective - Vital Signs/Intake and Output Vital Signs (last 24 hours): Temp Pulse Resp BP Pulse Ox 97.5 F L 65 20 109/70 97 09/11/17 08:10 09/11/17 08:10 09/11/17 08:10 09/11/17 09:43 09/11/17 08:10 - Medications Medications: Current Medications Albuterol/Ipratropium (Duoneb 3 Mg/0.5 Mg (3 Ml) Ud) 3 ml INH RQ6 [facility] Last Admin: 09/11/17 07:30 Dose: 3 ml Alprazolam (Xanax) 2 mg PO BID PRN PRN Reason: Anxiety Last Admin: 09/11/17 03:50 Dose: 2 mg Aspirin (Aspirin Chewable) 81 mg PO DAILY [facility] Last Admin: 09/11/17 09:44 Dose: 81 mg Digoxin (Lanoxin) 0.125 mg PO DAILY@1800 [facility] Last Admin: 09/10/17 17:39 Dose: 0.125 mg Enalapril Maleate (Vasotec) 20 mg PO DAILY [facility] Last Admin: 09/11/17 09:42 Dose: 20 mg Enoxaparin Sodium (Lovenox) 40 mg SC DAILY [facility] Last Admin: 09/11/17 09:43 Dose: 40 mg Famotidine (Pepcid) 20 mg PO BID [facility] Last Admin: 09/11/17 09:42 Dose: 20 mg Furosemide (Lasix) 40 mg IVP DAILY [facility] Last Admin: 09/11/17 09:43 Dose: 40 mg Nicotine (Nicoderm Cq) 1 patch TD DAILY [facility] Last Admin: 09/11/17 09:47 Dose: 1 patch Oxycodone HCl (Oxycodone Immediate Release Tab) 30 mg PO Q12 [facility] Last Admin: 09/11/17 09:43 Dose: 30 mg Pantoprazole Sodium (Protonix Ec Tab) 40 mg PO DAILY [facility] Last Admin: 09/11/17 09:42 Dose: 40 mg Rosuvastatin Calcium (Crestor) 5 mg PO HS [facility] Last Admin: 09/10/17 21:39 Dose: 5 mg Fluticasone/Salmeterol (Advair Diskus 250/50) 1 puff IH RQ12 [facility] Last Admin: 09/11/17 07:30 Dose: 1 puff Spironolactone (Aldactone) 25 mg PO DAILY [facility] Last Admin: 09/11/17 09:42 Dose: 25 mg Tiotropium [place] (Spiriva) 18 mcg IH RQD [facility] - Labs Labs: 09/11/17 06:39 09/11/17 06:39 PT 10.5 SECONDS (9.7-12.2) 09/08/17 11:48 INR 0.9 09/08/17 11:48 APTT 36 SECONDS (21-34) H 09/08/17 11:48
[2017-09-11 16:18] VITALS: BP 115/70; TEMP 98
[2017-09-11 17:00] VITALS: PULSE 63
[2017-09-11 19:08] VITALS: PULSE 70
[2017-09-11] MEDS: Digoxin 125 mcg (0.125 mg) Tab PO SCH (19:08)
--- NOTE | 2017-09-11 19:19 | CP.PCM.PN ---
Subjective - Date & Time of Evaluation Date of Evaluation: 09/11/17 Time of Evaluation: 12:00 - Subjective Subjective: clinically same Objective - Vital Signs/Intake and Output Vital Signs (last 24 hours): Temp Pulse Resp BP Pulse Ox 98.0 F 63 20 115/70 97 09/11/17 15:17 09/11/17 15:30 09/11/17 15:17 09/11/17 15:17 09/11/17 15:17 Intake and Output: 09/11/17 09/12/17 18:59 06:59 Intake Total 360 Balance 360 - Medications Medications: Current Medications Albuterol/Ipratropium (Duoneb 3 Mg/0.5 Mg (3 Ml) Ud) 3 ml INH RQ6 [facility] Last Admin: 09/11/17 13:44 Dose: 3 ml Alprazolam (Xanax) 2 mg PO BID PRN PRN Reason: Anxiety Last Admin: 09/11/17 19:12 Dose: 2 mg Aspirin (Aspirin Chewable) 81 mg PO DAILY [facility] Last Admin: 09/11/17 09:44 Dose: 81 mg Digoxin (Lanoxin) 0.125 mg PO DAILY@1800 [facility] Last Admin: 09/11/17 19:08 Dose: 0.125 mg Enalapril Maleate (Vasotec) 20 mg PO DAILY [facility] Last Admin: 09/11/17 09:42 Dose: 20 mg Enoxaparin Sodium (Lovenox) 40 mg SC DAILY [facility] Last Admin: 09/11/17 09:43 Dose: 40 mg Famotidine (Pepcid) 20 mg PO BID [facility] Last Admin: 09/11/17 19:08 Dose: 20 mg Furosemide (Lasix) 40 mg IVP DAILY [facility] Last Admin: 09/11/17 09:43 Dose: 40 mg Nicotine (Nicoderm Cq) 1 patch TD DAILY [facility] Last Admin: 09/11/17 09:47 Dose: 1 patch Oxycodone HCl (Oxycodone Immediate Release Tab) 30 mg PO Q12 [facility] Last Admin: 09/11/17 09:43 Dose: 30 mg Pantoprazole Sodium (Protonix Ec Tab) 40 mg PO DAILY [facility] Last Admin: 09/11/17 09:42 Dose: 40 mg Rosuvastatin Calcium (Crestor) 5 mg PO HS [facility] Last Admin: 09/10/17 21:39 Dose: 5 mg Fluticasone/Salmeterol (Advair Diskus 250/50) 1 puff IH RQ12 [facility] Last Admin: 09/11/17 07:30 Dose: 1 puff Spironolactone (Aldactone) 25 mg PO DAILY [facility] Last Admin: 09/11/17 09:42 Dose: 25 mg Tiotropium [place] (Spiriva) 18 mcg IH RQD [facility] - Labs Labs: 09/11/17 06:39 09/11/17 06:39 PT 10.5 SECONDS (9.7-12.2) 09/08/17 11:48 INR 0.9 09/08/17 11:48 APTT 36 SECONDS (21-34) H 09/08/17 11:48 - Constitutional Appears: Well - Head Exam Head Exam: ATRAUMATIC, NORMAL INSPECTION, NORMOCEPHALIC - Eye Exam Eye Exam: EOMI, Normal appearance, PERRL Pupil Exam: NORMAL ACCOMODATION, PERRL - ENT Exam ENT Exam: Mucous Membranes Moist, Normal Exam - Neck Exam Neck Exam: Full ROM, Normal Inspection. absent: Lymphadenopathy - Respiratory Exam Respiratory Exam: Decreased Breath Sounds - Cardiovascular Exam Cardiovascular Exam: REGULAR RHYTHM, +S1, +S2 - GI/Abdominal Exam GI & Abdominal Exam: Soft, Diminished Bowel Sounds - Rectal Exam Rectal Exam: Deferred
--- NOTE | 2017-09-12 09:16 | PCM.HF ---
Heart Failure Core Measure - Heart Failure Ejection Fraction: Less Than 40 % (ef <40%) THOMAS Inhibitor Prescribed: Yes Beta-Jocelyn Prescribed: None Contraindication/Reason for not providing: copd Angiotensin II Receptor Jocelyn Prescribed: No Contraindication/Reason for not providing: on thomas AnticoagulationTherapy for Atrial Fibrillation/Atrialflutter: No Contraindication/Reason for not providing: no afib Aldosterone Antagonist Prescribed: No Contraindication/Reason for not providing: NOT RX BY MD AT PRESENT Hydralazine Nitrate Prescribed: No Contraindication/Reason for not providing: NOT RX BY MD AT PRESENT Implantable Cardioverter Defibrillator Therapy: Yes Cardiac Resynchronization Therapy Prescribed: No Contraindication/Reason for not providing: has AICD - Follow up Will be discharged to: Home Follow Up Date (must be within 7 days from discharge): 09/16/17 Follow Up Time: 09:00
== END 2017-09-11 21:30 | disposition home or self-care (01) | DRG 293 ==
LOC: C.ER 10:28 → C.9E 12:41 → C.6T 12:58 → OBSVTOIN 09-10 16:42
PROVIDERS: ADMIT Internal Medicine Nephrology; ATTEND Internal Medicine Nephrology
DX: I11.0 Hypertensive heart disease with heart failure (principal); F12.90 Cannabis use, unspecified, uncomplicated; I50.23 Acute on chronic systolic (congestive) heart failure; I34.0 Nonrheumatic mitral (valve) insufficiency; I35.1 Nonrheumatic aortic (valve) insufficiency; J44.9 Chronic obstructive pulmonary disease, unspecified; F41.9 Anxiety disorder, unspecified; F17.200 Nicotine dependence, unspecified, uncomplicated; H54.61 Unqualified visual loss, right eye, normal vision left eye; M19.90 Unspecified osteoarthritis, unspecified site; R51 Headache; F14.10 Cocaine abuse, uncomplicated; Z79.82 Long term (current) use of aspirin; Z87.01 Personal history of pneumonia (recurrent); Z91.14 Patient's other noncompliance with medication regimen; Z95.810 Presence of automatic (implantable) cardiac defibrillator

== ENCOUNTER 2018-01-01 16:38 | Inpatient (IN) | payer MEDICARE ==
[2018-01-01 16:38] VITALS: PULSE 70; BMI 23.7
[2018-01-01 18:42] LABS: BASO # 0.1 K/uL (0.0-0.2); BASO % 0.5 % (0.0-2.0); EOS # 0.1 K/uL (0.0-0.7); EOS % 0.5 % (0.0-4.0); HEMOGLOBIN 15.9 g/dL (12.0-18.0); LYMPH # 1.8 K/uL (1.0-4.3); MEAN CELL VOLUME 92.2 fL (80.0-94.0); MEAN CORPUSCULAR HGB CONC 33.6 g/dL (33.0-37.0); MEAN PLATELET VOLUME 9.1 fL (7.2-11.7); MONO # 0.9 K/uL (0.0-0.8); MONO % 7.5 % (0.0-10.0); NEUT # 9.3 K/uL (1.8-7.0); NEUT % 76.5 % (50.0-75.0); NRBC % 0.1 % (0.0-2.0); RBC 5.14 Mil/uL (4.40-5.90); RED CELL DISTRIBUTION WIDTH 15.4 % (11.5-14.5); WHITE BLOOD COUNT 12.1 K/uL (4.8-10.8)
--- NOTE | 2018-01-01 18:45 | C.PDOC ---
History Of Present Illness 62-year-old male, PMHx includes COPD, CHF, Atrial fibrillation (? compliance with medication), presents to the emergency department with with complaints of recurring shortness of breath that started two days ago. Patient has a breo inhaler, which doesn't help. He notes associated cough which is productive. Denies fever, chills, leg swelling, or chest pain. Patient has a Hx of multiple visits for similar complaint. Time Seen by Provider: 01/01/18 17:18 Chief Complaint (Nursing): Shortness Of Breath History Per: Patient History/Exam Limitations: no limitations Past Medical History Reviewed: Historical Data, Nursing Documentation, Vital Signs Vital Signs: Last Vital Signs Temp 97.4 F L 01/01/18 17:04 Pulse 82 01/01/18 16:54 Resp 32 H 01/01/18 17:10 BP 152/88 H 01/01/18 16:54 Pulse Ox 97 01/01/18 18:52 - Medical History PMH: Anxiety, Arthritis, Atrial Fibrillation, CHF, COPD, HTN, Pneumonia Denies: Chronic Kidney Disease Surgical History: Pacemaker (AICD) - [facility] Procedures INTRODUCTION OF SERUM/TOX/VACCINE INTO MUSCLE, PERC APPROACH (08/11/17) Family History: States: No Known Family Hx - Social History Hx Alcohol Use: Yes (occasionally) Hx Substance Use: Yes (marijuana daily) - Immunization History Hx Tetanus Toxoid Vaccination: No Hx Influenza Vaccination: No Hx Pneumococcal Vaccination: No Review Of Systems Constitutional: Negative for: Fever, Chills Cardiovascular: Negative for: Chest Pain, Edema, Light Headedness Respiratory: Positive for: Cough, Shortness of Breath, Sputum Musculoskeletal: Negative for: Back Pain Neurological: Negative for: Weakness, Numbness Physical Exam - Physical Exam Appears: Non-toxic, No Acute Distress Skin: Warm, Dry, No Rash Head: Normacephalic Eye(s): bilateral: PERRL Nose: Normal Oral Mucosa: Moist Neck: Normal ROM Cardiovascular: Rhythm Regular, No Murmur Respiratory: Decreased Breath Sounds (B/L), No Accessory Muscle Use, Rhonchi Gastrointestinal/Abdominal: Soft, No Tenderness Extremity: Normal ROM, No Pedal Edema, No Deformity, No Swelling Neurological/Psych: Oriented x3, Normal Speech ED Course And Treatment - Laboratory Results Result Diagrams: 01/01/18 18:34 01/01/18 18:34 Lab Interpretation: Abnormal (WBC 12.1, BNP 14189) ECG: Interpreted By Me ECG Rhythm: Sinus Rhythm (with left axis deviation and LVH) O2 Sat by Pulse Oximetry: 97 (RA) Pulse Ox Interpretation: Normal - Radiology CXR: Interpreted by Me CXR Interpretation: Yes: Cardiomegaly (with moderate pulmonary congestion) - Physician Consult Information Time Consulting Physician Contacted: 19:21 Physician Contacted: Yo Roca Outcome Of Conversation: Patient well known to him. He wIll be admitted for diuresis. Medical Decision Making Medical Decision Making: Plan: * EKG * Bloodwork * Chest X-Ray * UA * Reassess and Disposition Disposition - Disposition Disposition: HOSPITALIZED Disposition Time: 19:22 Condition: FAIR - POA Present On Arrival: None - Clinical Impression Clinical Impression: CHF (congestive heart failure) - Scribe Statement The provider has reviewed the documentation as recorded by the Scribe (Saray Duran) All medical record entries made by the Scribe were at my direction and personally dictated by me. I have reviewed the chart and agree that the record accurately reflects my personal performance of the history, physical exam, medical decision making, and the department course for this patient. I have also personally directed, reviewed, and agree with the discharge instructions and disposition.
[2018-01-01 18:51] LABS: ALB/GLOB RATIO 1.2 (1.0-2.1); ALT/SGPT 26 U/L (21-72); AST/SGOT 36 U/L (17-59); BLOOD UREA NITROGEN 16 mg/dL (9-20); CALCIUM 9.3 mg/dl (8.6-10.4); GFR AFRICAN-AMERICAN > 60; GFR NON-AFRICAN AMERICAN > 60
[2018-01-01 19:03] LABS: B-TYPE NATRIURETIC PEPTIDE 17900 pg/mL (0-900)
[2018-01-01 21:58] VITALS: RESP 20
[2018-01-02 06:42] LABS: CK-MB 0.79 ng/mL (0.0-3.38); TROPONIN I 0.065 ng/mL (0.00-0.120)
--- NOTE | 2018-01-02 06:52 | RAD ---
Chest x-ray single frontal view History: Shortness of breath. Comparison: 04/24/2017 Findings: Bilateral hilar prominence ; right greater than left. Clinical correlation. Consolidative changes noted at the right lung base and to a lesser extent left lung base. Moderate venous congestion. Linear atelectasis in the right midlung zone. Biapical pleural thickening with upper lobe granulomatous changes. Trace bilateral pleural effusions. Mild cardiomegaly. Left-sided pacemaker. Degenerative changes in the spine and shoulders. Impression: Bilateral hilar prominence ; right greater than left. Clinical correlation. Consolidative changes noted at the right lung base and to a lesser extent left lung base. Moderate venous congestion. Linear atelectasis in the right midlung zone. Biapical pleural thickening with upper lobe granulomatous changes. Trace bilateral pleural effusions. Mild cardiomegaly. Left-sided pacemaker.
[2018-01-02] MEDS: Albuterol-Ipratrop 3 mg / 0.5 (3 ml) UD INH SCH ×3 (07:30→19:12)
[2018-01-02] MEDS: Pantoprazole 40 mg EC Tab PO SCH (11:06)
[2018-01-02] MEDS: Enoxaparin 40 mg Syringe SC SCH (11:08)
[2018-01-02 14:42] LABS: CK-MB 1.26 ng/mL (0.0-3.38); TROPONIN I 0.042 ng/mL (0.00-0.120)
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
[2018-01-03 00:46] VITALS: TEMP 97.8; O2SAT 100
[2018-01-03] MEDS: Albuterol-Ipratrop 3 mg / 0.5 (3 ml) UD INH SCH ×3 (01:25→13:41)
[2018-01-03 04:15] VITALS: PULSE 90
--- NOTE | 2018-01-03 08:13 | CP.PCM.PN ---
Subjective - Date & Time of Evaluation Date of Evaluation: 01/03/18 Time of Evaluation: 08:05 - Subjective Subjective: patient has no current dyspnea. Objective - Vital Signs/Intake and Output Vital Signs (last 24 hours): Temp Pulse Resp BP Pulse Ox 97.8 F 90 20 131/78 100 01/02/18 23:40 01/03/18 04:12 01/02/18 23:40 01/02/18 23:40 01/02/18 23:40 - Medications Medications: Current Medications Albuterol/Ipratropium (Duoneb 3 Mg/0.5 Mg (3 Ml) Ud) 3 ml INH RQ6 [facility] Last Admin: 01/03/18 07:39 Dose: 3 ml Aspirin (Aspirin Chewable) 81 mg PO DAILY [facility] Last Admin: 01/02/18 11:05 Dose: 81 mg Enalapril Maleate (Vasotec) 10 mg PO DAILY [facility] Last Admin: 01/02/18 11:06 Dose: 10 mg Enoxaparin Sodium (Lovenox) 40 mg SC DAILY [facility] Last Admin: 01/02/18 11:08 Dose: 40 mg Furosemide (Lasix) 60 mg IVP DAILY [facility] Last Admin: 01/02/18 11:09 Dose: 60 mg Pantoprazole Sodium (Protonix Ec Tab) 40 mg PO DAILY [facility] Last Admin: 01/02/18 11:06 Dose: 40 mg Rosuvastatin Calcium (Crestor) 5 mg PO HS [facility] Last Admin: 01/02/18 22:14 Dose: 5 mg - Labs Labs: 01/01/18 18:34 01/01/18 18:34 - Constitutional Appears: Non-toxic - Head Exam Head Exam: NORMAL INSPECTION - Eye Exam Eye Exam: Normal appearance - ENT Exam ENT Exam: Mucous Membranes Moist - Neck Exam Neck Exam: Full ROM - Respiratory Exam Respiratory Exam: NORMAL BREATHING PATTERN - Cardiovascular Exam Cardiovascular Exam: REGULAR RHYTHM - GI/Abdominal Exam GI & Abdominal Exam: Normal Bowel Sounds - Rectal Exam Rectal Exam: Deferred - Back Exam Back Exam: NORMAL INSPECTION - Neurological Exam Neurological Exam: Alert - Psychiatric Exam Psychiatric exam: Normal Affect - Skin Skin Exam: Normal Color Assessment and Plan (1) Acute on chronic systolic (congestive) heart failure Assessment & Plan: improved volume status. I stressed the importance of stabilization of volume status. medication compliance. can d/c home. Status: Acute
[2018-01-03] MEDS: Pantoprazole 40 mg EC Tab PO SCH (09:33)
[2018-01-03] MEDS: Enoxaparin 40 mg Syringe SC SCH (09:33)
[2018-01-03 09:43] VITALS: BP 123/78
--- NOTE | 2018-01-03 10:40 | CP.PCM.PN ---
Subjective - Date & Time of Evaluation Date of Evaluation: 01/03/18 Time of Evaluation: 10:36 - Subjective Subjective: PGY2 progress note for Dr. Roca 62 year old male with past medical history of COPD, CHF, A fib, HTN, dilated cardiomyopathy, arthiritis and medication on compliance is admitted to hospital for dyspnea. Patient states that occasionally skips doses of his medications because of increased urination. Currently, pt is resting comfortably. Denies having any SOB, CP, cough, abd pain, N/V/D/C, F/C. Objective - Vital Signs/Intake and Output Vital Signs (last 24 hours): Temp Pulse Resp BP Pulse Ox 97.8 F 90 20 123/78 100 01/02/18 23:40 01/03/18 04:12 01/02/18 23:40 01/03/18 09:35 01/02/18 23:40 - Medications Medications: Current Medications Albuterol/Ipratropium (Duoneb 3 Mg/0.5 Mg (3 Ml) Ud) 3 ml INH RQ6 [facility] Last Admin: 01/03/18 07:39 Dose: 3 ml Aspirin (Aspirin Chewable) 81 mg PO DAILY [facility] Last Admin: 01/03/18 09:33 Dose: 81 mg Enalapril Maleate (Vasotec) 10 mg PO DAILY [facility] Last Admin: 01/03/18 09:32 Dose: 10 mg Enoxaparin Sodium (Lovenox) 40 mg SC DAILY [facility] Last Admin: 01/03/18 09:33 Dose: 40 mg Furosemide (Lasix) 60 mg IVP DAILY [facility] Last Admin: 01/03/18 09:35 Dose: 60 mg Pantoprazole Sodium (Protonix Ec Tab) 40 mg PO DAILY [facility] Last Admin: 01/03/18 09:33 Dose: 40 mg Rosuvastatin Calcium (Crestor) 5 mg PO HS [facility] Last Admin: 01/02/18 22:14 Dose: 5 mg - Labs Labs: 01/01/18 18:34 01/01/18 18:34 - Constitutional Appears: Non-toxic, No Acute Distress - Head Exam Head Exam: ATRAUMATIC - ENT Exam ENT Exam: Mucous Membranes Moist - Respiratory Exam Respiratory Exam: Clear to Ausculation Bilateral. absent: Accessory Muscle Use , Rales, Rhonchi, Wheezes, Respiratory Distress - Cardiovascular Exam Cardiovascular Exam: REGULAR RHYTHM, +S1, +S2. absent: Gallop, Rubs, Murmur - GI/Abdominal Exam GI & Abdominal Exam: Soft, Normal Bowel Sounds. absent: Distended, Firm, Guarding, Rigid, Tenderness, Organomegaly - Extremities Exam Extremities Exam: absent: Pedal Edema, Tenderness - Neurological Exam Neurological Exam: Alert, Awake, Oriented x3 - Psychiatric Exam Psychiatric exam: Normal Affect, Normal Mood - Skin Skin Exam: Dry, Intact, Normal Color, Warm Assessment and Plan - Assessment and Plan (Free Text) Assessment: CHF exacerbation - [place] admission, [place] [address] - CXR showed bilateral hilar prominence R>L. Moderate venous congestion. Mild cardiomegaly. see report for full details. - Pt admits to being non-compliant with medications at home. - Continue Vasotec 10 mg po qd, Lasix 60 mg IVP qd. - Continue Aspirin 81 mg po qd - Will hold home spironolactone - Clinically pt's breathing has improved signifying improving volume status - Cardiology, Dr. Saini consulted. Per cardio, pt can be d/[place] home - Official echo report pending COPD exacerbation - Pt is afebrile since admission - Duoneb - NC prn to maintain O2 V 92% - Pulm, Dr. Wills was consulted HTN - Continue home medication Vasotec 10 mg po qd HLD - Crestor 5 mg po qd Prophylaxis - Lovenox - Protonix Case will be discussed with attending, Dr. Roca. All orders and management per Dr. Roca Patient is stable for discharge home per Dr. Roca Patient is to follow up with PMD upon discharge Patient is to follow up with communications coordinator upon discharge. Patient given referral for Dr. Stefania Saini. Patient is counselled on medication compliance. Patient is to continue taking home medications as prescribed. Patient will be given scripts for the following medications: Lasixs 40 mg po QD #30, Vasotec 10 mg Po QD #30, Cecil Ellipta 1 pudd IH QD #1 inhaler, Rosuvastatin 5 mg po HS #30 , Aspirin 81 mg po qd #30 tabs, spirnolactone 25mg po qd #30 Please return to ED if symptoms worsen.
[2018-01-03 11:48] LABS: BASO % 0.4 % (0.0-2.0); EOS # 0.1 K/uL (0.0-0.7); EOS % 1.5 % (0.0-4.0); HEMOGLOBIN 14.2 g/dL (12.0-18.0); LYMPH # 1.6 K/uL (1.0-4.3); LYMPH % 20.1 % (20.0-40.0); MEAN CELL VOLUME 91.9 fL (80.0-94.0); MEAN CORPUSCULAR HEMOGLOBIN 31.1 pg (27.0-31.0); MEAN CORPUSCULAR HGB CONC 33.9 g/dL (33.0-37.0); MEAN PLATELET VOLUME 9.5 fL (7.2-11.7); MONO # 0.8 K/uL (0.0-0.8); MONO % 9.8 % (0.0-10.0); NEUT # 5.3 K/uL (1.8-7.0); NEUT % 68.2 % (50.0-75.0); NRBC % 0.1 % (0.0-2.0); RBC 4.57 Mil/uL (4.40-5.90); RED CELL DISTRIBUTION WIDTH 15.2 % (11.5-14.5); WHITE BLOOD COUNT 7.7 K/uL (4.8-10.8)
[2018-01-03 12:06] LABS: ALB/GLOB RATIO 1.2 (1.0-2.1); ALBUMIN 3.6 g/dL (3.5-5.0); ALT/SGPT 21 U/L (21-72); AST/SGOT 25 U/L (17-59); BLOOD UREA NITROGEN 21 mg/dL (9-20); CALCIUM 9.1 mg/dl (8.6-10.4); GFR AFRICAN-AMERICAN > 60; GFR NON-AFRICAN AMERICAN > 60
--- NOTE | 2018-01-03 12:43 | CP.PCM.PN ---
Subjective - Date & Time of Evaluation Date of Evaluation: 01/03/18 Time of Evaluation: 08:00 - Subjective Subjective: Today the patient was seen and examined at bedside resting comfortably. He reports that his shortness of breath has improved. Denies Chest pain, SOB when ambulating. Overall he feels much better. Mild, improved wheezing on auscultation. Possible D/C home today. Clear from a pulmonary standpoint Assessment and Plan: 1. COPD - Symptoms improving - Saturating 91-99% NC 2L - CXR 01/01: consolidative changes in the R lung base and left lung base, trace b /l pleural effusions, bilateral hilar prominence - CBC 01/01: WBC 12.1, no bands - cont duonebs/ nebulizer treatments - recommend follow-up with me in outpatient setting 2. Acute on chronic CHF exacerbation - Pro-BNP 01/01 [id number] - Echo 08/12/17: LVEF 30-35%, LV, LA, RA dilation, RV normal size and thickness - enalapril - furosemide 3. Tobacco use disorder - Nicotine patches Objective - Vital Signs/Intake and Output Vital Signs (last 24 hours): Temp Pulse Resp BP Pulse Ox 97.8 F 90 20 123/78 100 01/02/18 23:40 01/03/18 04:12 01/02/18 23:40 01/03/18 09:35 01/02/18 23:40 - Medications Medications: Current Medications Albuterol/Ipratropium (Duoneb 3 Mg/0.5 Mg (3 Ml) Ud) 3 ml INH RQ6 [facility] Last Admin: 01/03/18 07:39 Dose: 3 ml Aspirin (Aspirin Chewable) 81 mg PO DAILY [facility] Last Admin: 01/03/18 09:33 Dose: 81 mg Enalapril Maleate (Vasotec) 10 mg PO DAILY [facility] Last Admin: 01/03/18 09:32 Dose: 10 mg Enoxaparin Sodium (Lovenox) 40 mg SC DAILY [facility] Last Admin: 01/03/18 09:33 Dose: 40 mg Furosemide (Lasix) 40 mg PO DAILY [facility] Pantoprazole Sodium (Protonix Ec Tab) 40 mg PO DAILY [facility] Last Admin: 01/03/18 09:33 Dose: 40 mg Rosuvastatin Calcium (Crestor) 5 mg PO HS [facility] Last Admin: 01/02/18 22:14 Dose: 5 mg - Labs Labs: 01/03/18 11:32 01/03/18 11:32
--- NOTE | 2018-01-03 13:18 | CARD ---
APPROVED REPORT EKG Measurement Heart [id number] <Conclusion> Normal sinus rhythm Possible Left atrial enlargement Leftward axis Left ventricular hypertrophy Abnormal ECG
--- NOTE | 2018-01-03 15:45 | PCM.HF ---
Heart Failure Core Measure - Heart Failure Ejection Fraction: Less Than 40 % THOMAS Inhibitor Prescribed: Yes Beta-Jocelyn Prescribed: None Contraindication/Reason for not providing: NOT RX PER CARDIO AT THIS TIME; HAS PPM Angiotensin II Receptor Jocelyn Prescribed: No Contraindication/Reason for not providing: ON THOMAS AnticoagulationTherapy for Atrial Fibrillation/Atrialflutter: No Contraindication/Reason for not providing: NO AFIB Aldosterone Antagonist Prescribed: No Contraindication/Reason for not providing: NOT RX PER CARDIO AT THIS TIME; HAS PPM Hydralazine Nitrate Prescribed: No Contraindication/Reason for not providing: NOT RX PER CARDIO AT THIS TIME; HAS PPM Implantable Cardioverter Defibrillator Therapy: No Contraindication/Reason for not providing: HAS PPM Cardiac Resynchronization Therapy Prescribed: No Contraindication/Reason for not providing: HAS PPM - Follow up Will be discharged to: Home Follow Up Date (must be within 7 days from discharge): 01/06/18 Follow Up Time: 09:00
--- NOTE | 2018-01-03 17:59 | CARD ---
APPROVED REPORT EXAM: Two-dimensional and M-mode echocardiogram with Doppler and color Doppler. Other Information Quality : GoodRhythm : INDICATION Dyspnea Congestive Heart Failure 2D DIMENSIONS IVSd1.3 (0.7-1.1cm)LVDd6.0 (3.9-5.9cm) PWd1.3 (0.7-1.1cm)LVDs4.9 (2.5-4.0cm) FS (%) 18.7 %LVEF (%)15.0 (>50%) M-Mode DIMENSIONS RVDd2.10 (2.1-3.2cm)Left Atrium (MM)4.35 (2.5-4.0cm) IVSd1.14 (0.7-1.1cm)Aortic Root4.54 (2.2-3.7cm) LVDd6.93 (4.0-5.6cm)Aortic Cusp Exc.2.77 (1.5-2.0cm) PWd1.03 (0.7-1.1cm)FS (%) 11 % LVDs6.20 (2.0-3.8cm)LVEF (%)15 (>50%) Aortic Valve AI P 1/2 [id number] Mitral Valve MV E Msfqanra31.3cm/sMV A Httlidsy78.4cm/sE/A ratio2.4 TDI E/Lateral E'0.0E/Medial E'0.0 Tricuspid Valve TR Peak Flivshpb086di/sTR Peak Gr.[id number] LEFT VENTRICLE The Left Ventricle is mildly dilated. There is mild concentric left ventricular hypertrophy. Left ventricle systolic function is severely impaired. The Ejection Fraction is 15-20%. There is severe global hypokinesis of the left ventricle. RIGHT VENTRICLE The right ventricle is normal size. There is normal right ventricular wall thickness. The right ventricular systolic function is normal. There is a pacemaker lead in the right ventricle. ATRIA The left atrium is mildly dilated. The right atrium is mildly dilated. The interatrial septum is intact with no evidence for an atrial septal defect. AORTIC VALVE The aortic valve is normal in structure. There is moderate aortic regurgitation. There is no aortic valvular stenosis. MITRAL VALVE The mitral valve is normal in structure. Mitral regurgitation is mild. TRICUSPID VALVE The tricuspid valve is normal in structure. There is mild tricuspid regurgitation. Right ventricular systolic pressure is estimated at 50-60 mmHg. There is moderate pulmonary hypertension. PULMONIC VALVE The pulmonic valve is not well visualized. There is mild pulmonic valvular regurgitation. GREAT VESSELS The aortic root is mildly enlarged. PERICARDIAL EFFUSION There is no significant pericardial effusion. <Conclusion> Left ventricle systolic function is severely impaired. The Ejection Fraction is 15-20%. Hypertensive heart disease. There is moderate aortic regurgitation. Mitral regurgitation is mild. There is mild tricuspid regurgitation. There is moderate pulmonary hypertension. There is mild pulmonic valvular regurgitation.
== END 2018-01-03 16:27 | disposition home or self-care (01) | DRG 292 ==
LOC: C.ER 16:38 → C.9E 19:23 → C.6T 19:23
PROVIDERS: ADMIT Internal Medicine Nephrology; ATTEND Internal Medicine Nephrology
DX: I11.0 Hypertensive heart disease with heart failure (principal); J44.1 Chronic obstructive pulmonary disease with (acute) exacerbation; I50.23 Acute on chronic systolic (congestive) heart failure; E78.5 Hyperlipidemia, unspecified; I42.0 Dilated cardiomyopathy; H54.61 Unqualified visual loss, right eye, normal vision left eye; I48.91 Unspecified atrial fibrillation; Z91.14 Patient's other noncompliance with medication regimen; F12.90 Cannabis use, unspecified, uncomplicated; F17.210 Nicotine dependence, cigarettes, uncomplicated; F41.9 Anxiety disorder, unspecified; Z95.0 Presence of cardiac pacemaker

== ENCOUNTER 2018-09-15 11:43 | Inpatient (IN) | payer MEDICARE ==
[2018-09-15 11:44] VITALS: PULSE 70
[2018-09-15 11:54] VITALS: BMI 24.3
--- NOTE | 2018-09-15 13:30 | C.PDOC ---
History Of Present Illness CC " shortness of breath" HPI: Patient is a 63 year old male with history of systolic heart failure s/p AICD, COPD, Atrial fibrillation, HTN, cocaine use who presents for 2 day history of worsening shortness of breath associated with cough productive of yellow sputum. He states he has had subjective fever, chronic right knee pain. He complains of diffuse gradual onset headache currently, admits he has had prior similar headaches before. He denies nasal congestion, sore throat, dizziness, abdominal pain, nausea, vomiting, diarrhea, constipation. PMH: systolic heart failure s/p AICD, COPD, Atrial fibrillation, HTN, cocaine use, osteoarthritis PSH: AICD placement 1 year ago Home meds: unknown Allergies: NKDA Social hx: (+) smoke 2 cigarettes daily, (+) ETOH shots, beer, (+) cocaine - last use 2 days ago, also use Oxy, Xanax Family hx: noncontributory as per patient PMD: Dr. Анан Lua Cardio: Dr. Plascencia <Cliff Evans - Last Filed: 09/15/18 18:50> <Cliff Evans - Last Filed: 09/15/18 18:50> <Randall Coleman - Last Filed: 09/15/18 20:05> Time Seen by Provider: 09/15/18 11:54 Chief Complaint (Nursing): Shortness Of Breath Past Medical History Vital Signs: Last Vital Signs Temp 97.8 F 09/15/18 11:56 Pulse 76 09/15/18 11:56 Resp 24 09/15/18 11:56 BP 144/75 09/15/18 11:56 Pulse Ox 95 09/15/18 11:56 - Medical History PMH: Anxiety, Arthritis, Atrial Fibrillation, CHF, COPD, HTN, Pneumonia Denies: Chronic Kidney Disease Surgical History: Pacemaker (AICD) - [facility] Procedures INTRODUCTION OF SERUM/TOX/VACCINE INTO MUSCLE, PERC APPROACH (08/11/17) Family History: States: Unknown Family Hx - Social History Hx Alcohol Use: Yes (occasionally) Hx Substance Use: Yes (marijuana daily) - Immunization History Hx Tetanus Toxoid Vaccination: No Hx Influenza Vaccination: No Hx Pneumococcal Vaccination: No <Cliff Evans - Last Filed: 09/15/18 18:50> Vital Signs: Last Vital Signs Temp 97.8 F 09/15/18 11:56 Pulse 76 09/15/18 11:56 Resp 24 09/15/18 11:56 BP 144/75 09/15/18 11:56 Pulse Ox 95 09/15/18 14:14 - [facility] Procedures INTRODUCTION OF SERUM/TOX/VACCINE INTO MUSCLE, PERC APPROACH (08/11/17) <Randall Coleman - Last Filed: 09/15/18 20:05> Review Of Systems Constitutional: Positive for: Fever. Negative for: Weight loss Cardiovascular: Negative for: Chest Pain, Palpitations Respiratory: Positive for: Cough Gastrointestinal: Negative for: Nausea, Vomiting, Abdominal Pain, Diarrhea Genitourinary: Negative for: Dysuria Neurological: Negative for: Confusion, Dizziness Psych: Negative for: Anxiety, Depression <Cliff Evans - Last Filed: 09/15/18 18:50> Physical Exam - Physical Exam Appears: Other (Patient is panting, appears short of breath) Skin: Warm, Dry, No Rash Head: Atraumatic, Normacephalic Eye(s): bilateral: EOMI, right: Other (Old right eye injury, white-out of cornea, blind), left: PERRL Ear(s): Bilateral: Normal Nose: Normal Oral Mucosa: Moist Lips: Normal Appearing Neck: Normal, No Midline Cervical Tenderness, No Paracervical Tenderness Cardiovascular: Rhythm Regular, No Friction Rub, No Murmur, No JVD Respiratory: Normal Breath Sounds, Rales (Bilateral basilar), No Stridor, No Wheezing Gastrointestinal/Abdominal: Soft, No Tenderness, No Mass, No Distention, No Guarding Back: No CVA Tenderness Extremity: No Tenderness, No Pedal Edema, No Calf Tenderness Pulses: Left Dorsalis Pedis: Normal, Right Dorsalis Pedis: Normal Neurological/Psych: Oriented x3, Normal Speech, Normal Motor, Normal Sensation <Cliff Evans - Last Filed: 09/15/18 18:50> ED Course And Treatment - Laboratory Results Result Diagrams: 09/15/18 13:45 09/15/18 13:45 Interpretation Of ECG: SR 81, 1st degree degree AV block, LVH with repolorization abnormality O2 Sat by Pulse Oximetry: 95 - Radiology CXR: Read By Radiologist (Moderate edema like pattern with mid to lower lobe prominence. Cardiomegaly. Left sided AICD. ) - CT Scan/US Head Other Rad Studies (CT/US): Read By Radiologist CT/US Interpretation: No acute intracranal abnormality <Cliff vEans - Last Filed: 09/15/18 18:50> - Laboratory Results Result Diagrams: 09/15/18 13:45 09/15/18 13:45 Lab Results: PT 11.8 SECONDS (9.7-12.2) 09/15/18 13:45 INR 1.1 09/15/18 13:45 APTT 33 SECONDS (21-34) 09/15/18 13:45 Troponin I 0.0130 ng/mL (0.00-0.120) 09/15/18 13:45 NT-Pro-B Natriuret Pep 59396 pg/mL (0-900) H 09/15/18 13:45 Total Bilirubin 0.6 mg/dL (0.2-1.3) 09/15/18 13:45 AST 44 U/L (17-59) 09/15/18 13:45 ALT 30 U/L (21-72) 09/15/18 13:45 Alkaline Phosphatase 96 U/L (38-126) 09/15/18 13:45 Total Protein 7.0 g/dL (6.3-8.3) 09/15/18 13:45 Albumin 4.1 g/dL (3.5-5.0) 09/15/18 13:45 Globulin 3.0 gm/dL (2.2-3.9) 09/15/18 13:45 Albumin/Globulin Ratio 1.4 (1.0-2.1) 09/15/18 13:45 <Randall Coleman - Last Filed: 09/15/18 20:05> Medical Decision Making Medical Decision Making: CBC, CMP, UDS, EKG, CXR, BNP, Trop, Coags. Tylenol 975mg PO ordered. CT head ordered. CXR revealed moderate edema with lower lobe predominance. Ceftriaxone 1g IV, Azithromycin 500mg IV ordered. BNP 41658, Lasix 40mg IV x1 ordered. Trop x1 negative <Valiyakalayil,Merene A. - Last Filed: 09/15/18 18:50> Medical Decision Making: pt seen with resdient reports sob ho of chf copd. xr chf, possible infiltrate. antibiotics lasix dosed. ct head neg. accepted anna lua. <Randall Coleman - Last Filed: 09/15/18 20:05> Disposition Discussed With .: Yo Lua Doctor Will See Patient In The: Hospital - Disposition Disposition Time: 14:25 <Cliff Evans - Last Filed: 09/15/18 18:50> <Randall Coleman - Last Filed: 09/15/18 20:05> - Disposition Condition: FAIR - Clinical Impression Clinical Impression: CHF (congestive heart failure), Pneumonia Decision To Admit <Cliff Evans - Last Filed: 09/15/18 18:50> - Pt Status Changed To: Hospital Disposition Of: Inpatient - Admit Certification Admit to Inpatient:: After my assessment, the patient will require hospitalization for at least two midnights. This is because of the severity of symptoms shown, intensity of services needed, and/or the medical risk in this patient being treated as an outpatient. - InPatient: Physician Admission Certification: I certify that this patient requires 2 or more midnights of care for the following reason:: need lasix - . Bed Request Type: Telemetry Admitting Physician: Yo Lua <Randall Coleman - Last Filed: 09/15/18 20:05> - . Patient Diagnosis: CHF (congestive heart failure), Pneumonia
[2018-09-15 13:49] LABS: BASO # 0.1 K/uL (0.0-0.2); BASO % 0.5 % (0.0-2.0); EOS % 0.1 % (0.0-4.0); HEMOGLOBIN 13.5 g/dL (12.0-18.0); LYMPH % 9.3 % (20.0-40.0); MEAN CELL VOLUME 92.6 fL (80.0-94.0); MEAN CORPUSCULAR HGB CONC 33.5 g/dL (33.0-37.0); MEAN PLATELET VOLUME 8.8 fL (7.2-11.7); MONO # 0.8 K/uL (0.0-0.8); MONO % 7.6 % (0.0-10.0); NEUT % 82.5 % (50.0-75.0); NRBC % 0.1 % (0.0-2.0); PLATELET COUNT 272 K/uL (130-400); RBC 4.34 Mil/uL (4.40-5.90); WHITE BLOOD COUNT 10.9 K/uL (4.8-10.8)
[2018-09-15 13:58] LABS: INR 1.1; PROTHROMBIN TIME 11.8 SECONDS (9.7-12.2)
--- NOTE | 2018-09-15 13:58 | RAD ---
HISTORY: chest pain COMPARISON: Chest x-ray performed 01/01/18 TECHNIQUE: Chest, one view. FINDINGS: LUNGS: Moderate edema like pattern with mid to lower lobe predominance. PLEURA: No significant pleural effusion identified. No definite pneumothorax . CARDIOVASCULAR: Single lead left-sided AICD. Cardiomegaly. Ectatic aorta. Atherosclerotic calcifications. OSSEOUS STRUCTURES: No acute osseous abnormality identified. VISUALIZED UPPER ABDOMEN: Unremarkable. OTHER FINDINGS: None. IMPRESSION: Moderate edema like pattern with mid to lower lobe predominance. Cardiomegaly. Left-sided AICD.
[2018-09-15 14:05] LABS: ALB/GLOB RATIO 1.4 (1.0-2.1); ALBUMIN 4.1 g/dL (3.5-5.0); ALT/SGPT 30 U/L (21-72); AST/SGOT 44 U/L (17-59); BLOOD UREA NITROGEN 20 mg/dL (9-20); GFR NON-AFRICAN AMERICAN > 60
[2018-09-15 14:06] LABS: BANDS 1 % (0-2); LYMPHOCYTE 11 % (20-40); MONOCYTE 5 % (0-10); NEUTROPHIL 83 % (50-75); TOTAL CELLS COUNTED 100
[2018-09-15 14:07] LABS: PLATELET ESTIMATE NORMAL (NORMAL)
[2018-09-15] MEDS ORDERED: Azithromycin 500 MG in Sodium Chloride 0.9% 250 ML IVPB STA (14:10)
[2018-09-15 14:13] LABS: B-TYPE NATRIURETIC PEPTIDE 13300 pg/mL (0-900)
--- NOTE | 2018-09-15 14:29 | CT ---
Date of service: 09/15/2018 PROCEDURE: CT HEAD WITHOUT CONTRAST. HISTORY: Headache COMPARISON: Noncontrast head CT performed 09/08/17 TECHNIQUE: Axial computed tomography images were obtained through the head/brain without intravenous contrast. Radiation dose: Total exam DLP = 1041.01 mGy-cm. This CT exam was performed using one or more of the following dose reduction techniques: Automated exposure control, adjustment of the mA and/or kV according to patient size, and/or use of iterative reconstruction technique. FINDINGS: HEMORRHAGE: No intracranial hemorrhage. BRAIN: No mass effect or edema. Mild scattered white matter hypodensities, which are nonspecific, but often seen with chronic microvascular ischemic disease. Please note that MRI with diffusion imaging is more sensitive in the detection of acute ischemic event. VENTRICLES: No hydrocephalus. CALVARIUM: Unremarkable. PARANASAL SINUSES: Unremarkable as visualized. No significant inflammatory changes. MASTOID AIR CELLS: Unremarkable as visualized. No inflammatory changes. OTHER FINDINGS: The right lobe is small in size and contains calcifications, possibly related to hemorrhage. IMPRESSION: No acute intracranial pathology identified. Additional incidental findings as above.
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
[2018-09-15] MEDS ORDERED: Azithromycin 500mg/250ML NS 500 MG/250 ML BAG IVPB ONE (17:20)
[2018-09-15 17:34] LABS: BARBITURATES, UR NEGATIVE (NEGATIVE); BENZODIAZEPINES, UR NEGATIVE (NEGATIVE); OPIATES, UR NEGATIVE (NEGATIVE); PHENCYCLIDINE, UR NEGATIVE (NEGATIVE)
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
[2018-09-16] MEDS: Albuterol-Ipratrop 3 mg / 0.5 (3 ml) UD INH SCH ×4 (03:15→19:35)
--- NOTE | 2018-09-16 06:57 | CP.PCM.PN ---
Objective - Vital Signs/Intake and Output Vital Signs (last 24 hours): Temp Pulse Resp BP Pulse Ox 99 F 92 H 20 147/96 H 98 09/15/18 23:40 09/15/18 23:40 09/15/18 23:40 09/15/18 23:40 09/15/18 23:40 Intake and Output: 09/15/18 09/16/18 18:59 06:59 Output Total 550 100 Balance -550 -100 - Medications Medications: Current Medications Albuterol/Ipratropium (Duoneb 3 Mg/0.5 Mg (3 Ml) Ud) 3 ml INH RQ6 [facility] Last Admin: 09/16/18 03:15 Dose: 3 ml Aspirin (Aspirin Chewable) 81 mg PO DAILY [facility] Enalapril Maleate (Vasotec) 10 mg PO DAILY [facility] Enoxaparin Sodium (Lovenox) 40 mg SC DAILY [facility] Fluticasone/Vilanterol (Breo Ellipta 100-25 Mcg Inh) 1 puff INH RQD [facility] Furosemide (Lasix) 40 mg IVP DAILY [facility] Ceftriaxone Sodium 1 gm/ (Sodium Chloride) 100 mls @ 100 mls/hr IVPB DAILY [facility]; Protocol Rosuvastatin Calcium (Crestor) 5 mg PO HS [facility] Last Admin: 09/15/18 21:41 Dose: 5 mg Spironolactone (Aldactone) 25 mg PO DAILY [facility] - Labs Labs: 09/15/18 13:45 09/15/18 13:45 PT 11.8 SECONDS (9.7-12.2) 09/15/18 13:45 INR 1.1 09/15/18 13:45 APTT 33 SECONDS (21-34) 09/15/18 13:45
[2018-09-16] MEDS: Fluticasone-Vilanterol 100/25mcg Diskus INH SCH (08:00)
[2018-09-16] MEDS ORDERED: guaiFENesin 600 mg ER Tab PO ONE (08:30)
[2018-09-16] MEDS: Enoxaparin 40 mg Syringe SC SCH (10:04)
[2018-09-16] MEDS: Lactobacillus Acidophilus 500 MU Cap PO SCH ×3 (10:09→18:30)
[2018-09-16] MEDS: guaiFENesin 600 mg ER Tab PO SCH ×2 (10:35→17:54)
[2018-09-16] MEDS: Azithromycin 500 MG in Sodium Chloride 0.9% 250 ML IVPB SCH (10:36)
[2018-09-16 11:18] LABS: BASO # 0.1 K/uL (0.0-0.2); BASO % 0.5 % (0.0-2.0); EOS % 0.3 % (0.0-4.0); LYMPH # 1.6 K/uL (1.0-4.3); LYMPH % 15.3 % (20.0-40.0); MEAN CELL VOLUME 91.5 fL (80.0-94.0); MEAN CORPUSCULAR HEMOGLOBIN 30.8 pg (27.0-31.0); MEAN CORPUSCULAR HGB CONC 33.6 g/dL (33.0-37.0); MEAN PLATELET VOLUME 9.1 fL (7.2-11.7); MONO # 1.1 K/uL (0.0-0.8); MONO % 10.2 % (0.0-10.0); NEUT # 7.7 K/uL (1.8-7.0); NEUT % 73.7 % (50.0-75.0); NRBC % 0.1 % (0.0-2.0); RBC 4.54 Mil/uL (4.40-5.90); RED CELL DISTRIBUTION WIDTH 14.8 % (11.5-14.5); WHITE BLOOD COUNT 10.4 K/uL (4.8-10.8)
--- NOTE | 2018-09-16 12:05 | CARD ---
APPROVED REPORT Date of service: 09/15/2018 EKG Measurement Heart [id number] [id number] <Conclusion> Sinus rhythm Left anterior fascicular block Left ventricular hypertrophy with repolarization abnormality Abnormal ECG
[2018-09-16 12:16] LABS: ALB/GLOB RATIO 1.4 (1.0-2.1); ALBUMIN 3.9 g/dL (3.5-5.0); ALT/SGPT 19 U/L (21-72); AST/SGOT 48 U/L (17-59); BLOOD UREA NITROGEN 20 mg/dL (9-20); CALCIUM 8.9 mg/dl (8.6-10.4); GFR NON-AFRICAN AMERICAN > 60
--- NOTE | 2018-09-16 16:48 | CP.PCM.PN ---
Subjective - Date & Time of Evaluation Date of Evaluation: 09/16/18 Time of Evaluation: 16:48 Objective - Vital Signs/Intake and Output Vital Signs (last 24 hours): Temp Pulse Resp BP Pulse Ox 98.2 F 80 20 125/82 99 09/16/18 15:46 09/16/18 15:46 09/16/18 15:46 09/16/18 15:46 09/16/18 15:46 Intake and Output: 09/16/18 09/16/18 06:59 18:59 Output Total 100 Balance -100 - Medications Medications: Current Medications Albuterol/Ipratropium (Duoneb 3 Mg/0.5 Mg (3 Ml) Ud) 3 ml INH RQ6 [facility] Last Admin: 09/16/18 13:35 Dose: 3 ml Aspirin (Aspirin Chewable) 81 mg PO DAILY [facility] Last Admin: 09/16/18 10:05 Dose: 81 mg Enalapril Maleate (Vasotec) 10 mg PO DAILY [facility] Last Admin: 09/16/18 10:12 Dose: 10 mg Enoxaparin Sodium (Lovenox) 40 mg SC DAILY [facility] Last Admin: 09/16/18 10:04 Dose: 40 mg Fluticasone/Vilanterol (Breo Ellipta 100-25 Mcg Inh) 1 puff INH RQD [facility] Furosemide (Lasix) 40 mg IVP DAILY [facility] Last Admin: 09/16/18 10:05 Dose: 40 mg Guaifenesin (Mucinex La) 600 mg PO BID [facility] Last Admin: 09/16/18 10:35 Dose: 600 mg Ceftriaxone Sodium 1 gm/ (Sodium Chloride) 100 mls @ 100 mls/hr IVPB DAILY [facility]; Protocol Last Admin: 09/16/18 10:30 Dose: 100 mls/hr Azithromycin 500 mg/ Sodium (Chloride) 250 mls @ 167 mls/hr IVPB Q24H [facility]; Protocol Last Admin: 09/16/18 10:36 Dose: 167 mls/hr Lactobacillus Acidophilus (Bacid Acidophilus) 1 cap PO BID [facility] Last Admin: 09/16/18 11:10 Dose: Not Given Rosuvastatin Calcium (Crestor) 5 mg PO HS [facility] Last Admin: 09/15/18 21:41 Dose: 5 mg Spironolactone (Aldactone) 25 mg PO DAILY [facility] Last Admin: 09/16/18 10:04 Dose: 25 mg - Labs Labs: 09/16/18 11:09 09/16/18 11:09 PT 11.8 SECONDS (9.7-12.2) 09/15/18 13:45 INR 1.1 09/15/18 13:45 APTT 33 SECONDS (21-34) 09/15/18 13:45
[2018-09-17] MEDS ORDERED: guaiFENesin 600 mg ER Tab PO STA (00:15)
[2018-09-17] MEDS: Albuterol-Ipratrop 3 mg / 0.5 (3 ml) UD INH SCH ×4 (01:20→20:10)
[2018-09-17] MEDS: Fluticasone-Vilanterol 100/25mcg Diskus INH SCH (07:40)
[2018-09-17] MEDS: Lactobacillus Acidophilus 500 MU Cap PO SCH ×2 (11:12→17:43)
[2018-09-17] MEDS: guaiFENesin 600 mg ER Tab PO SCH ×2 (11:13→17:42)
[2018-09-17] MEDS: Enoxaparin 40 mg Syringe SC SCH (11:13)
[2018-09-17] MEDS: Azithromycin 500 MG in Sodium Chloride 0.9% 250 ML IVPB SCH (12:44)
--- NOTE | 2018-09-17 14:15 | CP.PCM.PN ---
Subjective - Date & Time of Evaluation Date of Evaluation: 09/17/18 Time of Evaluation: 14:15 Objective - Vital Signs/Intake and Output Vital Signs (last 24 hours): Temp Pulse Resp BP Pulse Ox 98.0 F 81 18 147/76 100 09/17/18 07:00 09/17/18 07:00 09/17/18 07:00 09/17/18 11:14 09/17/18 07:00 Intake and Output: 09/17/18 09/17/18 06:59 18:59 Output Total 400 Balance -400 - Medications Medications: Current Medications Albuterol/Ipratropium (Duoneb 3 Mg/0.5 Mg (3 Ml) Ud) 3 ml INH RQ6 [facility] Last Admin: 09/17/18 07:40 Dose: Not Given Aspirin (Aspirin Chewable) 81 mg PO DAILY [facility] Last Admin: 09/17/18 11:11 Dose: 81 mg Enalapril Maleate (Vasotec) 10 mg PO DAILY [facility] Last Admin: 09/17/18 11:11 Dose: 10 mg Enoxaparin Sodium (Lovenox) 40 mg SC DAILY [facility] Last Admin: 09/17/18 11:13 Dose: 40 mg Fluticasone/Vilanterol (Breo Ellipta 100-25 Mcg Inh) 1 puff INH RQD [facility] Last Admin: 09/17/18 07:40 Dose: Not Given Furosemide (Lasix) 40 mg IVP DAILY [facility] Last Admin: 09/17/18 11:14 Dose: 40 mg Guaifenesin (Mucinex La) 600 mg PO BID [facility] Last Admin: 09/17/18 11:13 Dose: 600 mg Ceftriaxone Sodium 1 gm/ (Sodium Chloride) 100 mls @ 100 mls/hr IVPB DAILY [facility]; Protocol Last Admin: 09/17/18 11:26 Dose: 100 mls/hr Azithromycin 500 mg/ Sodium (Chloride) 250 mls @ 167 mls/hr IVPB Q24H [facility]; Protocol Last Admin: 09/17/18 12:44 Dose: 167 mls/hr Lactobacillus Acidophilus (Bacid Acidophilus) 1 cap PO BID [facility] Last Admin: 09/17/18 11:12 Dose: 1 cap Rosuvastatin Calcium (Crestor) 5 mg PO HS [facility] Last Admin: 09/16/18 21:29 Dose: 5 mg Spironolactone (Aldactone) 25 mg PO DAILY [facility] Last Admin: 09/17/18 11:12 Dose: 25 mg - Labs Labs: 09/16/18 11:09 09/16/18 11:09 PT 11.8 SECONDS (9.7-12.2) 09/15/18 13:45 INR 1.1 09/15/18 13:45 APTT 33 SECONDS (21-34) 09/15/18 13:45
[2018-09-17 16:20] VITALS: RESP 20
[2018-09-17] MEDS ORDERED: guaiFENesin 100 mg/5 ml Syrup UD PO PRN (20:27)
[2018-09-18 00:10] VITALS: PULSE 77
[2018-09-18] MEDS: Albuterol-Ipratrop 3 mg / 0.5 (3 ml) UD INH SCH ×2 (03:19→07:45)
[2018-09-18 08:04] VITALS: TEMP 97.3; O2SAT 95
[2018-09-18] MEDS: Fluticasone-Vilanterol 100/25mcg Diskus INH SCH (09:53)
[2018-09-18] MEDS: Azithromycin 500 MG in Sodium Chloride 0.9% 250 ML IVPB SCH (11:12)
[2018-09-18] MEDS: guaiFENesin 600 mg ER Tab PO SCH (11:14)
[2018-09-18] MEDS: Enoxaparin 40 mg Syringe SC SCH (11:14)
[2018-09-18 11:15] VITALS: BP 130/84
--- NOTE | 2018-09-18 11:42 | CP.PCM.PN ---
Subjective - Date & Time of Evaluation Date of Evaluation: 09/18/18 Time of Evaluation: 11:35 - Subjective Subjective: Patient seen today states feel better today, denies any chest pain, sob, c/o dry cough oob ambulating without sob vss and labs - reviewed - stable Objective - Vital Signs/Intake and Output Vital Signs (last 24 hours): Temp Pulse Resp BP Pulse Ox 97.3 F L 77 20 130/84 95 09/18/18 07:00 09/18/18 07:00 09/18/18 07:00 09/18/18 11:13 09/18/18 07:00 - Medications Medications: Current Medications Albuterol/Ipratropium (Duoneb 3 Mg/0.5 Mg (3 Ml) Ud) 3 ml INH RQ6 [facility] Last Admin: 09/18/18 07:45 Dose: 3 ml Aspirin (Aspirin Chewable) 81 mg PO DAILY [facility] Last Admin: 09/18/18 11:12 Dose: 81 mg Enalapril Maleate (Vasotec) 10 mg PO DAILY [facility] Last Admin: 09/18/18 11:13 Dose: 10 mg Enoxaparin Sodium (Lovenox) 40 mg SC DAILY [facility] Last Admin: 09/18/18 11:14 Dose: 40 mg Fluticasone/Vilanterol (Breo Ellipta 100-25 Mcg Inh) 1 puff INH RQD [facility] Last Admin: 09/18/18 09:53 Dose: Not Given Furosemide (Lasix) 40 mg IVP DAILY [facility] Last Admin: 09/18/18 11:13 Dose: 40 mg Guaifenesin (Mucinex La) 600 mg PO BID [facility] Last Admin: 09/18/18 11:14 Dose: 600 mg Guaifenesin (Robitussin) 100 mg PO Q6H PRN PRN Reason: Cough Last Admin: 09/17/18 21:01 Dose: 100 mg Ceftriaxone Sodium 1 gm/ (Sodium Chloride) 100 mls @ 100 mls/hr IVPB DAILY [facility]; Protocol Last Admin: 09/17/18 11:26 Dose: 100 mls/hr Azithromycin 500 mg/ Sodium (Chloride) 250 mls @ 167 mls/hr IVPB Q24H [facility]; Protocol Last Admin: 09/18/18 11:12 Dose: 167 mls/hr Lactobacillus Acidophilus (Bacid Acidophilus) 1 cap PO BID [facility] Last Admin: 09/17/18 17:43 Dose: 1 cap Rosuvastatin Calcium (Crestor) 5 mg PO HS [facility] Last Admin: 09/17/18 21:01 Dose: 5 mg Spironolactone (Aldactone) 25 mg PO DAILY [facility] Last Admin: 09/18/18 11:12 Dose: 25 mg - Labs Labs: 09/16/18 11:09 09/16/18 11:09 PT 11.8 SECONDS (9.7-12.2) 09/15/18 13:45 INR 1.1 09/15/18 13:45 APTT 33 SECONDS (21-34) 09/15/18 13:45 Assessment and Plan - Assessment and Plan (Free Text) Assessment: A/P 63 year male with pmhx of of systolic heart failure s/p AICD, COPD, Atrial fibrillation, HTN, admitted with of worsening shortness of breath associated with cough productive of yellow sputum. patient clinically improved with diuresis and antibiotics D/W , cleared for discharge home today and f/u with Dr. Mann lua office in 1 week discharge plan discussed with patient who understands and agrees with plan RX give upon discharge patient instructed to returns to ED if symptoms returns or any other concerning symptoms
--- NOTE | 2018-09-26 00:08 | CP.PCM.DIS ---
Provider - Provider Date of Admission: 09/15/18 14:25 Attending physician: Leah Roca MD Time Spent in preparation of Discharge (in minutes): 35 Hospital Course - Lab Results Lab Results: Micro Results 09/15/18 15:20 Blood-Venous Blood Culture - Final NO GROWTH AFTER 5 DAYS 09/15/18 15:20 Blood-Venous Gram Stain - Final TEST NOT PERFORMED 09/15/18 15:45 Blood-Venous Blood Culture - Final NO GROWTH AFTER 5 DAYS 09/15/18 15:45 Blood-Venous Gram Stain - Final TEST NOT PERFORMED Most Recent Lab Values WBC 10.4 K/uL (4.8-10.8) 09/16/18 11:09 RBC 4.54 Mil/uL (4.40-5.90) 09/16/18 11:09 Hgb 14.0 g/dL (12.0-18.0) 09/16/18 11:09 Hct 41.6 % (35.0-51.0) 09/16/18 11:09 MCV 91.5 fL (80.0-94.0) 09/16/18 11:09 MCH 30.8 pg (27.0-31.0) 09/16/18 11:09 MCHC 33.6 g/dL (33.0-37.0) 09/16/18 11:09 RDW 14.8 % (11.5-14.5) H 09/16/18 11:09 Plt Count 268 K/uL (130-400) 09/16/18 11:09 MPV 9.1 fL (7.2-11.7) 09/16/18 11:09 Neut % (Auto) 73.7 % (50.0-75.0) 09/16/18 11:09 Lymph % (Auto) 15.3 % (20.0-40.0) L 09/16/18 11:09 Faulk % (Auto) 10.2 % (0.0-10.0) H 09/16/18 11:09 Eos % (Auto) 0.3 % (0.0-4.0) 09/16/18 11:09 Baso % (Auto) 0.5 % (0.0-2.0) 09/16/18 11:09 Neut # (Auto) 7.7 K/uL (1.8-7.0) H 09/16/18 11:09 Lymph # (Auto) 1.6 K/uL (1.0-4.3) 09/16/18 11:09 Faulk # (Auto) 1.1 K/uL (0.0-0.8) H 09/16/18 11:09 Eos # (Auto) 0.0 K/uL (0.0-0.7) 09/16/18 11:09 Baso # (Auto) 0.1 K/uL (0.0-0.2) 09/16/18 11:09 Neutrophils % (Manual) 83 % (50-75) H 09/15/18 13:45 Band Neutrophils % 1 % (0-2) 09/15/18 13:45 Lymphocytes % (Manual) 11 % (20-40) L 09/15/18 13:45 Monocytes % (Manual) 5 % (0-10) 09/15/18 13:45 Platelet Estimate Normal (NORMAL) 09/15/18 13:45 RBC Morphology Normal 09/15/18 13:45 PT 11.8 SECONDS (9.7-12.2) 09/15/18 13:45 INR 1.1 09/15/18 13:45 APTT 33 SECONDS (21-34) 09/15/18 13:45 Sodium 137 mmol/L (132-148) 09/16/18 11:09 Potassium 3.8 mmol/L (3.6-5.2) 09/16/18 11:09 Chloride 104 mmol/L (98-107) 09/16/18 11:09 Carbon Dioxide 22 mmol/L (22-30) 09/16/18 11:09 Anion Gap 15 (10-20) 09/16/18 11:09 BUN 20 mg/dL (9-20) 09/16/18 11:09 Creatinine 1.2 mg/dL (0.8-1.5) 09/16/18 11:09 Est GFR ( Amer) > 60 09/16/18 11:09 Est GFR (Non-Af Amer) > 60 09/16/18 11:09 Random Glucose 127 mg/dL (75-110) H D 09/16/18 11:09 Calcium 8.9 mg/dl (8.6-10.4) 09/16/18 11:09 Phosphorus 4.0 mg/dL (2.5-4.5) 09/16/18 11:09 Magnesium 1.7 mg/dL (1.6-2.3) 09/16/18 11:09 Total Bilirubin 0.7 mg/dL (0.2-1.3) 09/16/18 11:09 AST 48 U/L (17-59) 09/16/18 11:09 ALT 19 U/L (21-72) L D 09/16/18 11:09 Alkaline Phosphatase 90 U/L (38-126) 09/16/18 11:09 Troponin I 0.0130 ng/mL (0.00-0.120) 09/15/18 13:45 NT-Pro-B Natriuret Pep 72634 pg/mL (0-900) H 09/15/18 13:45 Total Protein 6.7 g/dL (6.3-8.3) 09/16/18 11:09 Albumin 3.9 g/dL (3.5-5.0) 09/16/18 11:09 Globulin 2.8 gm/dL (2.2-3.9) 09/16/18 11:09 Albumin/Globulin Ratio 1.4 (1.0-2.1) 09/16/18 11:09 Urine Opiates Screen Negative (NEGATIVE) 09/15/18 16:30 Urine Methadone Screen Negative (NEGATIVE) 09/15/18 16:30 Ur Barbiturates Screen Negative (NEGATIVE) 09/15/18 16:30 Ur Phencyclidine Scrn Negative (NEGATIVE) 09/15/18 16:30 Ur Amphetamines Screen Negative (NEGATIVE) 09/15/18 16:30 U Benzodiazepines Scrn Negative (NEGATIVE) 09/15/18 16:30 U Oth Cocaine Metabols Positive (NEGATIVE) H 09/15/18 16:30 U Cannabinoids Screen Positive (NEGATIVE) H 09/15/18 16:30 Influenza Typ A,B (EIA) Negative for flu a/b (NEGATIVE) 09/15/18 16:07 - Hospital Course Hospital Course: Patient presented to the hospital with respiratory complaints including dyspnea, shortness of breath, chest tightness, cough and wheezing. He was treated with IV steroids and is discharged home on tapering dose of steroids. Discharge Exam - Head Exam Head Exam: ATRAUMATIC, NORMAL INSPECTION, NORMOCEPHALIC - Eye Exam Eye Exam: Normal appearance - ENT Exam ENT Exam: Mucous Membranes Moist - Respiratory Exam Respiratory Exam: Decreased Breath Sounds - Cardiovascular Exam Cardiovascular Exam: REGULAR RHYTHM, +S1, +S2 - GI/Abdominal Exam GI & Abdominal Exam: Normal Bowel Sounds - Neurological Exam Neurological exam: Alert, Oriented x3 Discharge Plan - Discharge Medications Prescriptions: Spironolactone [Aldactone] 25 mg PO DAILY #30 tab Moxifloxacin [Avelox] 400 mg PO DAILY #5 tab Fluticasone/Vilanterol [Breo Ellipta 100-25 Mcg INH] 1 pow IH DAILY #1 blst.w.dev Rosuvastatin Calcium [Crestor] 5 mg PO HS #30 tab Furosemide 40 mg PO DAILY #30 tablet guaiFENesin [Mucinex LA] 600 mg PO BID #30 tab guaiFENesin [Robitussin] 100 mg PO Q6H PRN #240 udc PRN Reason: Cough Enalapril Maleate [Vasotec] 10 mg PO DAILY #30 tab - Follow Up Plan Condition: FAIR Disposition: HOME/ ROUTINE Instructions: Heart Healthy Diet, Heart Failure, Adult (DC), Moxifloxacin (Systemic), Pneumonia, Adult (DC), Fluticasone and Vilanterol, Enalapril, Furosemide, Rosuvastatin, Spironolactone Additional Instructions: Please follow up with Dr. Alberts office Please continue medication as per med. rec Referrals: Yo Roca MD [Staff Provider] -
== END 2018-09-18 13:09 | disposition home or self-care (01) | DRG 291 ==
LOC: C.ER 11:43 → C.9E 14:25 → C.6T 17:38 → C.9E 17:59 → C.6T 19:57
PROVIDERS: ADMIT Internal Medicine Nephrology; ATTEND Internal Medicine Nephrology
DX: I11.0 Hypertensive heart disease with heart failure (principal); J18.9 Pneumonia, unspecified organism; J44.0 Chronic obstructive pulmonary disease with (acute) lower respiratory infection; I50.22 Chronic systolic (congestive) heart failure; I48.91 Unspecified atrial fibrillation; F14.90 Cocaine use, unspecified, uncomplicated; F12.90 Cannabis use, unspecified, uncomplicated; Z95.810 Presence of automatic (implantable) cardiac defibrillator; F17.210 Nicotine dependence, cigarettes, uncomplicated; F41.9 Anxiety disorder, unspecified